=== PATIENT | female | born 1955 | race Caucasian/White ===

== ENCOUNTER → 2019-06-04 11:12 | Outpatient (CLI) | payer MEDICARE, SELFPAY ==
--- NOTE | ~2019-06-04 | MM_ITS ---
EXAMINATION: MM screening [facility] w carol HISTORY: Screening mammogram TECHNIQUE: Craniocaudal and mediolateral oblique 3-D tomosynthesis images were obtained and synthetic 2-D images were generated. CAD analysis was submitted and interpreted. COMPARISON: 05/19/2018, 04/09/2017, 03/28/2016 bilateral digital screening mammogram examinations BREAST PARENCHYMAL COMPOSITION: There are scattered areas of fibroglandular density. FINDINGS: Numerous bilateral benign calcifications, primarily calcified microhematomas. There is no e vidence of suspicious mass, calcification, or architectural distortion to suggest malignancy in eithe r breast. There has been no suspicious interval change. IMPRESSION: 1. No mammographic evidence of malignancy. 2. Recommend routine screening mammography in one year. BI-RADS Category 2: Benign finding(s). Reviewed, dictated and finalized at location A.
== END ==
PROVIDERS: Visit Provider Nurse Practitioner Obstetrics & Gynecology
DX: Z12.31 Encounter for screening mammogram for malignant neoplasm of breast (principal)
CPT/HCPCS: 77063; 77067

== ENCOUNTER → 2020-08-09 11:19 | Outpatient (CLI) | payer MEDICARE, SELFPAY ==
--- NOTE | ~2020-08-09 | MM_ITS ---
EXAMINATION: MM screening [facility] w carol HISTORY: Screening mammogram, family history of breast cancer in her mother. TECHNIQUE: Craniocaudal and mediolateral oblique 3-D tomosynthesis images were obtained and synthetic 2-D images were generated. CAD analysis was submitted and interpreted. COMPARISON: 06/04/2019, 05/19/2018, 04/09/2017, 03/28/2016 BREAST PARENCHYMAL COMPOSITION: There are scattered areas of fibroglandular density. FINDINGS: Scattered benign-appearing calcifications are present. There is no evidence of suspicious m ass, calcification, or architectural distortion to suggest malignancy in either breast. There has bee n no suspicious interval change. IMPRESSION: 1. No mammographic evidence of malignancy. 2. Recommend routine screening mammography in one year. BI-RADS Category 2: Benign finding(s). Reviewed, dictated and finalized at location A.
== END ==
PROVIDERS: Visit Provider Nurse Practitioner Obstetrics & Gynecology
DX: Z12.31 Encounter for screening mammogram for malignant neoplasm of breast (principal)
CPT/HCPCS: 77063; 77067

== ENCOUNTER → 2021-10-18 13:13 | Outpatient (CLI) | payer MEDICARE, SELFPAY ==
--- NOTE | ~2021-10-18 | MM_ITS ---
EXAMINATION: MM screening [facility] BI w carol HISTORY: Screening TECHNIQUE: Craniocaudal and mediolateral oblique 3-D tomosynthesis images were obtained and synthetic 2-D images were generated. CAD analysis was submitted and interpreted. COMPARISON: Comparison to multiple prior studies sequentially, with oldest reviewed study dated 02/2016. BREAST PARENCHYMAL COMPOSITION: There are scattered areas of fibroglandular density. FINDINGS: There is no evidence of suspicious mass, calcification, or architectural distortion to sugg est malignancy in either breast. There has been no suspicious interval change. IMPRESSION: 1. No mammographic evidence of malignancy. 2. Recommend routine screening mammography in one year. BI-RADS Category 1: Negative Reviewed, dictated and finalized at location A.
== END ==
PROVIDERS: PCP Internal Medicine Geriatric Medicine; Visit Provider Nurse Practitioner Obstetrics & Gynecology
DX: Z12.31 Encounter for screening mammogram for malignant neoplasm of breast (principal)
CPT/HCPCS: 77063; 77067

== ENCOUNTER 2022-12-26 13:59 | Outpatient (CLI) | payer MEDICARE, SELFPAY ==
--- NOTE | ~2022-12-26 | MM_ITS ---
EXAMINATION: MM screening [facility] w carol HISTORY: Screening mammogram, family history of breast cancer in her mother. TECHNIQUE: Craniocaudal and mediolateral oblique 3-D tomosynthesis images were obtained and synthetic 2-D images were generated. CAD analysis was submitted and interpreted. COMPARISON: 10/18/2021, 08/09/2020, 06/04/2019 BREAST PARENCHYMAL COMPOSITION: There are scattered areas of fibroglandular density. FINDINGS: Scattered benign-appearing calcifications are present. No suspicious mass, calcification, o r architectural distortion are identified in either breast to suggest malignancy. There has been no s uspicious interval change. IMPRESSION: 1. No mammographic evidence of malignancy. 2. Recommend routine screening mammography in one year. BI-RADS Category 2: Benign finding(s). Reviewed, dictated and finalized at location A.
== END 2022-12-26 14:00 | disposition home or self-care (01) ==
LOC: CHSIMG 14:01
PROVIDERS: PCP Internal Medicine Geriatric Medicine; Visit Provider Nurse Practitioner Obstetrics & Gynecology
DX: Z12.31 Encounter for screening mammogram for malignant neoplasm of breast (principal)
CPT/HCPCS: 77063; 77067

== ENCOUNTER 2023-05-18 11:55 | Inpatient (IN) | payer MEDICARE, SELFPAY ==
[2023-05-18] VITALS (24 sets, daily range): BP systolic 106–132; BP diastolic 58–67; PULSE 73–96; RESP 14–23; TEMP 36.7–36.8; O2SAT 92–100; BMI 25.0
--- NOTE | ~2023-05-18 | XR_ITS ---
MODIFIED ESOPHAGRAM HISTORY: Pneumonia TECHNIQUE: Modified barium esophagram was performed by speech pathologist under radiologist fluorosco pic guidance. This was recorded on tape. The exam was reviewed on 05/19/2023 11:37 CDT. The DAP for this procedure was 0.602 Gycm2. Fluoroscopy time is 0.9 minutes. FINDINGS: Lateral projection of the cervical spine demonstrates normal alignment. There is normal s wallowing function without penetration or aspiration.. IMPRESSION: 1: Normal swallowing function without penetration or aspiration. 2: Please refer to speech pathologist report for additional detail. Reviewed, dictated and finalized at location A.
--- NOTE | ~2023-05-18 | XR_ITS ---
EXAMINATION: [id number] DATE: 05/22/2023 11:16 INDICATION: Status post right thoracentesis TECHNIQUE: frontal and lateral views of the chest were obtained. COMPARISON: Chest radiograph dated 05/18/[address] dated 05/19/2023 FINDINGS: Large retrocardiac hiatal hernia. Airspace opacities in the bilateral mid and lower lung zones. No pn eumothorax or pleural effusion. Arch size is normal. Reverse right total shoulder arthroplasty. Spina l stimulator leads projecting over the posterior central canal. Lower thoracic spine. IMPRESSION: 1. No pneumothorax or residual pleural effusion post right thoracentesis. 2. Persistent opacities in the bilateral mid and lower lung zones which could represent pneumonia, pu lmonary edema, atelectasis or more chronic interstitial lung disease. 3. Large hiatal hernia. Reviewed, dictated and finalized at location A. IMPRESSION: 1. No pneumothorax or residual pleural effusion post right thoracentesis. 2. Persistent opacities in the bilateral mid and lower lung zones which could r epresent pneumonia, pulmonary edema, atelectasis or more chronic interstitial l john disease. 3. Large hiatal hernia.
--- NOTE | ~2023-05-18 | CT_ITS ---
EXAMINATION: CT diagnostic chest wo con DATE: 05/18/2023 16:08 INDICATION: pneumonia, TECHNIQUE: Computed tomography (CT) of the chest was performed without intravenous contrast. Automate d exposure control and iterative reconstruction technique were employed. The dose-length product was 215.98 mGy-cm. COMPARISON: X-ray chest, same date. FINDINGS: CHEST: Thoracic aorta: No significant dilation or calcification. Lung parenchyma and airways: Rounded consolidation in the right lung base. Peripheral patchy groundgl ass opacities, reticulations, and inter and intralobular septal thickening.. Thoracic inlet, axillae and chest wall: No thyroid or soft tissue mass. No axillary lymphadenopathy. Mediastinum: No lymphadenopathy. Large hiatal hernia containing portions of the stomach and large bow el. Patulous esophagus. Heart and pericardium: Normal heart size. No pericardial effusion. Coronary artery calcifications: Moderate. Pleura: Small right pleural effusion. Upper abdomen: No significant finding. Thoracic bones: Old healed left second and third rib fractures. Exaggerated thoracic kyphosis. Superi or endplate deformity at T7 and L1. Inferior endplate deformity at T12. Stimulator leads project over the lower thoracic canal. Partially visualized right shoulder arthroplasty hardware. IMPRESSION: Segmental right basilar opacity most likely represents rounded atelectasis, however focal consolidati on or pulmonary masses are not excluded. Consider short-term follow-up to demonstrate resolution. Diffuse interstitial lung disease may represent NSIP or UIP. Small right pleural effusion. Large hiatal hernia containing uncomplicated appearing stomach and large bowel. Patulous esophagus. Endplate deformities at T7, T12, and L1 represent acute or chronic compression fracture, correlate wi th pain/tenderness. Reviewed, dictated and finalized at location K. IMPRESSION: Segmental right basilar opacity most likely represents rounded atelectasis, how ever focal consolidation or pulmonary masses are not excluded. Consider short-t erm follow-up to demonstrate resolution. Diffuse interstitial lung disease may represent NSIP or UIP. Small right pleural effusion. Large hiatal hernia containing uncomplicated appearing stomach and large bowel. Patulous esophagus. Endplate deformities at T7, T12, and L1 represent acute or chronic compression fracture, correlate with pain/tenderness.
--- NOTE | ~2023-05-18 | CT_ITS ---
EXAMINATION: CTA chest PE protocol DATE: 05/19/2023 11:10 CDT INDICATION: Hypoxia TECHNIQUE: Computed tomographic angiography (CTA) of the chest was performed with 100 mL Omnipaque-35 0 intravenous contrast. The dose-length product was 352.43 mGy-cm. Maximum intensity projection 3D-re constructions of the aorta and other arteries were constructed by the technologist on a separate work station. Automated exposure control and iterative reconstruction technique were employed. COMPARISON: CT dated 05/18/2023. FINDINGS: Heart size normal. There is atherosclerosis of the aorta without aneurysm. Small pleural ef fusions. Patchy bilateral airspace consolidation, consistent with pneumonia. Dependent atelectasis. T here is chronic interstitial fibrosis with bronchiectasis. Study is technically adequate without evidence for pulmonary embolism. Large hiatal hernia containing nonobstructed bowel. Multiple chronic wedge compression deformities of the thoracic spine. Accentuat ed kyphosis. Moderate thoracic spondylosis. IMPRESSION: 1. No evidence for pulmonary embolism. 2: Patchy bilateral airspace consolidation, suspicious for pneumonia. Superimposed pulmonary fibrosis . 3: Small pleural effusions, right greater than left. 4: Large hiatal hernia. Reviewed, dictated and finalized at location A. IMPRESSION: 1. No evidence for pulmonary embolism. 2: Patchy bilateral airspace consolidation, suspicious for pneumonia. Superimpo sed pulmonary fibrosis. 3: Small pleural effusions, right greater than left. 4: Large hiatal hernia.
--- NOTE | ~2023-05-18 | US_ITS ---
EXAMINATION: US thoracentesis DATE: 05/22/2023 11:34 INDICATION: Right pleural effusion TECHNIQUE: The procedure and its risks and benefits were discussed with the patient. Potential risks discussed included bleeding, infection, and pneumothorax. The patient understood the risks and agreed to proceed. The skin was prepped and draped in sterile fashion. 1% lidocaine was used for local anes thesia. Under ultrasound guidance, a 5 Fr catheter with trochar was advanced into the right pleural e ffusion. Fluid was aspirated. The catheter was removed, and a dressing was applied. There were no imm ediate complications. FINDINGS: Ultrasound images demonstrate a small right pleural effusion and the catheter within the fluid. IMPRESSION: 1. Successful ultrasound-guided thoracentesis yielding 100 mL of yellowish fluid. Reviewed, dictated and finalized at location A. IMPRESSION: 1. Successful ultrasound-guided thoracentesis yielding 100 mL of yellowish flu id.
--- NOTE | ~2023-05-18 | XR_ITS ---
XR chest 2V 05/18/2023 12:52 Indication: Shortness of breath and cough Procedure: AP and lateral views of the chest Comparison: No prior studies for comparison. Findings: Extensive bilateral airspace consolidation. Cardiomegaly. There is a hiatal hernia. Possibl e eventration of the diaphragm. Small right pleural effusion. No pneumothorax. There is right shoulde r arthroplasty. Impression: 1: Extensive bilateral airspace disease, consistent with pneumonia. 2: Small right pleural effusion. 3: Hiatal hernia with possible eventration of the diaphragm. Reviewed, dictated and finalized at location A. Impression: 1: Extensive bilateral airspace disease, consistent with pneumonia. 2: Small right pleural effusion. 3: Hiatal hernia with possible eventration of the diaphragm.
--- NOTE | 2023-05-18 12:00 | ECG_ITS ---
Measurements Intervals [place] Rate: 78 P: 25 MN: 156 QRS: -1 QRSD: 130 T: 119 QT: 446 QTc: 509 Interpretive Statements SINUS RHYTHM LEFT BUNDLE BRANCH BLOCK BASELINE ARTIFACT- II, III, AVL, AVF ABNORMAL ECG NO PREVIOUS ECG AVAILABLE FOR COMPARISON Electronically Signed On 05-18-2023 13:37:20 CDT by Andrew Barcenas D.O.
--- NOTE | 2023-05-18 12:03 | ED.GENADULT ---
HPI - General Adult General Chief complaint: Shortness of Breath/Dyspnea Stated complaint: SOB and CP Time Seen by Provider: 05/18/23 11:59 Source: patient History of Present Illness HPI narrative: 68 years old white female came to the emergency room by ambulance from rehab because of dry cough and chest tightness. Patient with rehab because of recent diagnosis of pneumonia 1-2 months ago been coughing since also been having chest tightness with coughing for the last 7 days. Patient believe that her symptoms are getting worse. Had chest x-ray 1 week ago. Had negative cardiac catheterization January 2023. was hospitalist at [facility] for few weeks with bilateral pneumonia, received IV antibiotic at that time then discharged to rehab. Chest x-ray few days ago showed bilateral pneumonia and started on Levaquin p.o. at that time. History of RA, hypertension, hyperlipidemia, not on aspirin, patient started on Levaquin 3 days ago for pneumonia Patient received Levaquin this morning prior to arrival to the emergency room Related Data Allergies Allergy/AdvReac Type Severity Reaction Status Date / Time No Known Drug Allergies Allergy Unknown Verified 11/12/17 14:29 Review of Systems Review of Systems: All systems reviewed & are unremarkable except as noted in HPI and below Exam Narrative: General appearance: Well-developed, well-nourished Skin: Normal color Head: Normocephalic, nontraumatic Eyes: Clear conjunctiva ENT: Oropharynx normal, ears normal, nose normal Neck: Supple, nontender Chest and respiratory: basilar rales and diffuse rhonchi bilaterally Heart: Regular rate/rhythm Abdomen: Soft, nontender, no organomegaly, quiet bowel sounds Vascular: Normal peripheral pulses, normal capillary refill. Musculoskeletal: Normal range of motion, nontender back Neurologic: Alert and oriented ?3, CHILD CARE SPECIALIST is normal as tested, no gross motor deficit Course Vital Signs Vital signs: Vital Signs Temperature 36.7 C 05/18/23 12:01 Pulse Rate 79 05/18/23 12:01 Respiratory Rate 22 H 05/18/23 12:01 Blood Pressure 106/67 05/18/23 12:01 Pulse Oximetry 100 05/18/23 12:01 Oxygen Delivery Nasal Cannula 05/18/23 12:01 Oxygen Flow Rate 4 05/18/23 12:01 Temperature 36.7 C 05/18/23 12:01 Pulse Rate 80 05/18/23 12:10 Respiratory Rate 22 H 05/18/23 12:01 Blood Pressure 106/67 05/18/23 12:01 Pulse Oximetry 100 05/18/23 12:10 Oxygen Delivery Room Air 05/18/23 12:10 Oxygen Flow Rate 4 05/18/23 12:01 Medical Decision Making MDM Narrative Medical decision making narrative: patient presents with chest pain and constant coughing for weeks Differential diagnosis include CHF, pneumonia, coronary artery disease/ less likely, pulmonary embolism -CT a pulmonary showed no PE few weeks ago Chest wall pain, pleurisy, electrolyte imbalance, dehydration Workup today showed hypokalemia 2.6, bilateral pneumonia, oxygenation on room air 92%. Patient to be admitted to the hospitalist for IV antibiotic, oxygen, potassium replacement. Differential Diagnosis Differential Diagnosis: As above Medical Records Medical records reviewed: Yes I reviewed the external patient's medical records. Vital Signs Vital Signs: Vital Signs Temperature 36.7 C 05/18/23 12:01 Pulse Rate 79 05/18/23 12:01 Respiratory Rate 22 H 05/18/23 12:01 Blood Pressure 106/67 05/18/23 12:01 Pulse Oximetry 100 05/18/23 12:01 Oxygen Delivery Nasal Cannula 05/18/23 12:01 Oxygen Flow Rate 4 05/18/23 12:01 Temperature 36.7 C 05/18/23 12:01 Pulse Rate 80 05/18/23 12:10 Respiratory Rate 22 H 05/18/23 12:01 Blood Pres
[2023-05-18] MEDS: ASPIRIN 81 MG CHEWABLE TABLET 324 MG PO (12:25)
[2023-05-18 12:46] LABS: Basophils Percent Auto 0.4 % (0.2-1.2); Eosinophils Absolute Auto 0.2 K/mm3 (0-0.3); Eosinophils Percent Auto 3.2 % (0-4.4); Hematocrit 32.1 % (37.0-47.0); Hemoglobin 9.9 g/dL (12.0-15.0); Immature Granulocyte Absolute 0.02 K/mm3 (0.00-0.031); Immature Granulocyte Percent A 0.4 % (0-0.5); Lymphocytes Absolute Auto 1.94 K/mm3 (0.9-3.2); Lymphocytes Percent Auto 36.3 % (18.3-44.2); Mean Corpuscular HGB Conc 30.8 g/dl (32-36); Mean Corpuscular Hemoglobin 30.5 pg (26-34); Mean Corpuscular Volume 98.8 fl (80-100); Mean Platelet Volume 10.1 fl (7.4-10.4); Monocytes Absolute Auto 0.6 K/mm3 (0.1-0.6); Monocytes Percent Auto 10.7 % (2.6-8.5); Neutrophils Absolute Auto 2.6 K/mm3 (1.3-6.7); Platelet Count Result 161 k/mm3 (150-375); Red Blood Count 3.25 M/mm3 (4.2-5.4); Red Cell Distribution Width 17.2 % (11.5-14.5); White Blood Count 5.3 K/mm3 (4.5-10.0)
[2023-05-18 12:47] LABS: Alveolar/Arterial O2 Gradient 48.8 mmHg; Base Excess ABG 3.4 mEq/l (+/-2.0); Device ROOM AIR; Fractional Inspired Oxygen 21 %; HCO3 ABG 26.8 mEq/l (22.0-26.0); Modified Allen's Test Pass; Oxygen Content ABG 13.2 %vol (16.0-22.0); Oxyhemoglobin 89.9 % THb (90.0-100.0); PCO2 ABG 36.3 mmHg (35.0-45.0); PO2 ABG 57.5 mmHg (80.0-100.0); PO2 FiO2 Ratio Arterial Blood 2.74 %; Site Drawn RIGHT RADIAL; Total Hemoglobin 10.4 g/dL (12.0-18.0); pH ABG 7.486 (7.350-7.450)
[2023-05-18 12:58] LABS: Lipase 64 U/L (23-300)
[2023-05-18 13:01] LABS: Alanine Aminotransferase 14 U/L (6-35); Alkaline Phosphatase 57 U/L (38-126); Anion Gap 4 mmol/L (8-16); Aspartate Amino Transferase 30 U/L (14-36); Bilirubin,Total 0.4 mg/dL (0.2-1.3); Blood Urea Nitrogen 7 mg/dL (7-17); Calcium 8.5 mg/dL (8.4-10.2); Carbon Dioxide 30 mmol/L (22-30); Chloride 103 mmol/L (98-107); Estimated CRCL calculation 53 ml/min; Estimated Glomerular Filt Rate > 60; Glucose 86 mg/dL (65-110); Potassium 2.6 mmol/L (3.4-5.0); Sodium 137 mmol/L (137-145)
[2023-05-18 13:08] LABS: NT Pro B Type Natriuretic Pept 279 pg/mL (19.9-100); Troponin I 0.016 ng/mL (0.000-0.034)
[2023-05-18 13:13] LABS: INR 1.1; Prothrombin Time 14.9 Seconds (11.1-14.7)
[2023-05-18 13:14] LABS: Partial Thromboplastin Time 42.8 Seconds (22.3-36.8)
[2023-05-18] MEDS: POTASSIUM CHLORIDE 20 MEQ ER TABLET 40 MEQ PO ×2 (13:52→23:13)
[2023-05-18] MEDS: POTASSIUM CHLORIDE INJ 40 MEQ in SODIUM CHLORIDE 0.9% IV 500 ML 130 MEQ IVPB (14:12)
--- NOTE | 2023-05-18 14:18 | PM.IMHP ---
H&P: HPI History of Present Illness Date/Time: 05/18/23 15:00 Chief Complaint: Shortness of breath. Narrative: This is a 68-year-old female with rheumatoid arthritis, hypertension, hyperlipidemia, depression, anxiety, and gastroesophageal reflux disease who presented to the emergency department via EMS from [facility] for evaluation of shortness of breath. The patient provides the following history. She was hospitalized earlier this year at [facility] at which time she required mechanical ventilation for a period of time due to severe pneumonia, complicated by pneumothorax. She was in the hospital for nearly a month and she was discharged to [facility] for rehab. Within the last week she has developed a nonproductive cough and she was started on levofloxacin 3 days ago after she was found to have evidence of bilateral pneumonia on an outpatient chest x-ray. She has reportedly been running a fever. She complains of intermittent, diffuse chest pain which she has difficulties describing but she goes on to say that this has been an ongoing problem for several months and in fact she had a cardiac catheterization in January 2023 which was reportedly unremarkable. Her appetite has been okay. She has frequent heartburn symptoms which she attributes to GERD and a known hiatal hernia. She denies headache, sore throat, pleuritic pain, nausea, vomiting, diarrhea, lower extremity edema, and calf pain. She was brought in today as she was reportedly increasingly short of breath and was hypoxic. In the ED: She was afebrile on arrival with stable blood pressures. SpO2 was 100% on 6 L nasal cannula. Labs were significant for WBC count of 5.3, hemoglobin 9.9, sodium 137, potassium 2.6, BUN 7, creatinine 0.60, lactic acid 1.3, CRP 8.5, proBNP 279. Chest x-ray showed extensive bilateral airspace disease consistent with pneumonia and small right pleural effusion. Chest CT showed segmental right basilar opacity (most likely round atelectasis however focal consolidation or pulmonary mass not excluded), diffuse interstitial lung disease which may represent NSIP or UIP (patient denies history of such), small right pleural effusion, large hiatal hernia, and patulous esophagus. She was given a dose of cefepime, levofloxacin, and vancomycin and she is being admitted in this setting for further treatment. Review of Systems Review of Systems: Twelve systems were reviewed and are negative except for as per HPI. [facility] Past Medical History Medical History Depression with anxiety Gastroesophageal reflux disease Hiatal hernia Hyperlipidemia Hypertension Irritable bowel syndrome Mitral valve prolapse Rheumatoid arthritis Urge urinary incontinence Surgical History Surgical History History of arthroplasty of right shoulder History of hammertoe correction History of nasal septoplasty History of turbinectomy Status post insertion of sacral nerve stimulator With subsequent removal. Status post insertion of spinal cord stimulator Social History Social History Social History: Surrogate medical decision maker: Adiel Pineda, spouse. Code status: Full code. Smoking status: Never smoker Alcohol intake: never Substance use: never Do You Feel Safe in your Home?: Yes Lack of Transportation: No Lack of Food: Never True Current Housing: I Have Housing Concerned About Future Housing: No Difficulty Paying Gas/Electric Bills: No Difficulty Paying for Meds: No Currently Unemployed: No Education: High School Diploma/GED Difficulty w/ Childcare or Family Care: No Spiritual care concerns: No Meds Home Medications and Allergies Home Medications Medication Instructions Recorded Confirmed Type alendronate 70 mg tablet mg PO 05/18/23 History kaylee
[2023-05-18] MEDS: CEFEPIME 2 GM/NS 50 ML 2 GM/50 ML BAG IVPB (14:40)
[2023-05-18 14:44] LABS: Lactic Acid Reflex 1.3 mmol/L (0.7-2.0)
[2023-05-18 14:47] LABS: CRP 8.5 mg/dL (<1.0)
[2023-05-18 15:58] LABS: MRSA (PCR) NOT DETECTED (NOT DETECTE)
[2023-05-18 16:14] LABS: Troponin I 0.016 ng/mL (0.000-0.034)
[2023-05-18] MEDS: VANCOMYCIN 1,500 MG/NS 500 ML 1,500 MG/500 ML BAG 250 MG IVPB (16:22)
[2023-05-18 16:40] LABS: Influenza A QL RT-PCR Negative (Negative); Influenza B QL RT-PCR Negative (Negative); RSV RNA, RT-PCR Negative (Negative); SARS-CoV-2 RNA PCR Negative (Negative)
[2023-05-18 17:05] LABS: Iron 32 ug/dL (37-170)
[2023-05-18 17:14] LABS: Folic Acid 18.9 ng/mL (2.76->20); Percent Iron Saturation 14 % (20-50); Vitamin B12 > 1000.0 pg/mL (239-931)
[2023-05-18 17:37] LABS: Thyroid Stimulating Hormone Reflex 0.598 uIU/mL (0.465-4.68)
--- NOTE | 2023-05-18 17:49 | ADMGEN ---
This patient, Prabha Pineda, was admitted to 3 [facility] Surg Room 319-01. Patient/family oriented to hospital policies and general routines including ID bracelet, bed and alarms, visiting hours, pain management, procedures, bathroom and other care routines, personal items, smoking policy, room service/diet, and visiting hours. Information on how to activate the Rapid Response Team has been discussed. Patient/Family are encouraged to report perceived risks to care and to ask questions if they do not understand what they are told or what they should do.
[2023-05-18 18:21] LABS: Troponin I 0.014 ng/mL (0.000-0.034)
[2023-05-18] MEDS: IPRATROPIUM 0.5 MG/ALBUTEROL SULFATE 2.5 MG AMPUL.NEB 3 ML INHALATION (20:22)
[2023-05-18 20:29] LABS: Magnesium 1.9 mg/dL (1.6-2.3); Potassium 3.6 mmol/L (3.4-5.0)
[2023-05-18 22:21] LABS: Procalcitonin 0.1 ng/mL
[2023-05-18] MEDS: ACETAMINOPHEN 325 MG TABLET 650 MG PO (23:20)
[2023-05-19] VITALS (16 sets, daily range): BP systolic 97–137; BP diastolic 51–79; PULSE 82–109; RESP 17–20; TEMP 36.3–36.5; O2SAT 92–100
[2023-05-19] MEDS: IPRATROPIUM 0.5 MG/ALBUTEROL SULFATE 2.5 MG AMPUL.NEB 3 ML INHALATION ×4 (02:40→20:39)
[2023-05-19 07:55] LABS: Basophils Percent Auto 0.4 % (0.2-1.2); Eosinophils Absolute Auto 0.3 K/mm3 (0-0.3); Eosinophils Percent Auto 6.3 % (0-4.4); Hematocrit 29.6 % (37.0-47.0); Hemoglobin 8.9 g/dL (12.0-15.0); Immature Granulocyte Absolute 0.01 K/mm3 (0.00-0.031); Immature Granulocyte Percent A 0.2 % (0-0.5); Lymphocytes Absolute Auto 2.04 K/mm3 (0.9-3.2); Lymphocytes Percent Auto 42.5 % (18.3-44.2); Mean Corpuscular HGB Conc 30.1 g/dl (32-36); Mean Corpuscular Hemoglobin 30.2 pg (26-34); Mean Corpuscular Volume 100.3 fl (80-100); Mean Platelet Volume 10.4 fl (7.4-10.4); Monocytes Absolute Auto 0.5 K/mm3 (0.1-0.6); Monocytes Percent Auto 10.8 % (2.6-8.5); Neutrophils Absolute Auto 1.9 K/mm3 (1.3-6.7); Neutrophils Percent Auto 39.8 % (45.5-73.1); Platelet Count Result 153 k/mm3 (150-375); Red Blood Count 2.95 M/mm3 (4.2-5.4); Red Cell Distribution Width 17.5 % (11.5-14.5); White Blood Count 4.8 K/mm3 (4.5-10.0)
--- NOTE | 2023-05-19 07:55 | PM.IMPN ---
Progress Note: A&P Assessment and Plan (1) Acute hypoxic respiratory failure: Code(s): J96.01 - Acute respiratory failure with hypoxia Status: Acute (2) Hypokalemia: Code(s): E87.6 - Hypokalemia Status: Acute (3) Normocytic anemia: Code(s): D64.9 - Anemia, unspecified Status: Acute Plan Acute Respiratory Failure with hypoxia Pneumonia vs ILD vs PE R/O Recently treated for PNA at outside facility came from rehab PO2 52 ABG Bronchodilators. Chest x-ray PNA CT chest ILD Mucolytic Pulmonary consulted CTA pending incentive spirometry while awake. 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 PT/OT ordered patient to likely return to Rehab once medically stable. Time Spent With Patient Time with patient: 15 - 25 minutes Subjective Date/time seen: 05/19/23 07:55 Interval history: Medical Record: Chief Complaint: Shortness of breath. Narrative: This is a 68-year-old female with rheumatoid arthritis, hypertension, hyperlipidemia, depression, anxiety, and gastroesophageal reflux disease who presented to the emergency department via EMS from [facility] for evaluation of shortness of breath. The patient provides the following history. She was hospitalized earlier this year at [facility] at which time she required mechanical ventilation for a period of time due to severe pneumonia, complicated by pneumothorax. She was in the hospital for nearly a month and she was discharged to [facility] for rehab. Within the last week she has developed a nonproductive cough and she was started on levofloxacin 3 days ago after she was found to have evidence of bilateral pneumonia on an outpatient chest x-ray. She has reportedly been running a fever. She complains of intermittent, diffuse chest pain which she has difficulties describing but she goes on to say that this has been an ongoing problem for several months and in fact she had a cardiac catheterization in January 2023 which was reportedly unremarkable. Her appetite has been okay. She has frequent heartburn symptoms which she attributes to GERD and a known hiatal hernia. She denies headache, sore throat, pleuritic pain, nausea, vomiting, diarrhea, lower extremity edema, and calf pain. She was brought in today as she was reportedly increasingly short of breath and was hypoxic. In the ED: She was afebrile on arrival with stable blood pressures. SpO2 was 100% on 6 L nasal cannula. Labs were significant for WBC count of 5.3, hemoglobin 9.9, sodium 137, potassium 2.6, BUN 7, creatinine 0.60, lactic acid 1.3, CRP 8.5, proBNP 279. Chest x-ray showed extensive bilateral airspace disease consistent with pneumonia and small right pleural effusion. Chest CT showed segmental right basilar opacity (most likely round atelectasis however focal consolidation or pulmonary mass not excluded), diffuse interstitial lung disease which may represent NSIP or UIP (patient denies history of such), small right pleural effusion, large hiatal hernia, and patulous esophagus. She was given a dose of cefepime, levofloxacin, and vancomycin and s
[2023-05-19 08:06] LABS: Anion Gap 0 mmol/L (8-16); Blood Urea Nitrogen 8 mg/dL (7-17); Calcium 8.2 mg/dL (8.4-10.2); Carbon Dioxide 27 mmol/L (22-30); Chloride 111 mmol/L (98-107); Estimated CRCL calculation 63 ml/min; Estimated Glomerular Filt Rate > 60; Glucose 76 mg/dL (65-110); Potassium 3.8 mmol/L (3.4-5.0); Sodium 138 mmol/L (137-145)
[2023-05-19] MEDS: POTASSIUM CHLORIDE 20 MEQ ER TABLET 40 MEQ PO ×2 (08:39→20:16)
[2023-05-19] MEDS: ENOXAPARIN 40 MG/0.4 ML SYRINGE SUB-Q (08:40)
[2023-05-19] MEDS: guaiFENesin 12 HR 600 MG TABCR PO ×2 (08:46→20:16)
[2023-05-19] MEDS: PANTOPRAZOLE 40 MG TABLET PO (08:46)
[2023-05-19] MEDS: FERROUS SULFATE 325 MG TABLET DR PO (08:46)
[2023-05-19] MEDS: LOSARTAN POTASSIUM 25 MG TABLET PO (08:46)
[2023-05-19] MEDS: busPIRone HCL 5 MG TABLET 15 MG PO ×2 (08:46→16:47)
[2023-05-19] MEDS: ACETAMINOPHEN 325 MG TABLET 650 MG PO ×3 (09:39→22:58)
[2023-05-19] MEDS: levoFLOXacin 750 MG/D5W 150 ML 750 MG/150 ML BAG 100 MG IVPB (16:00)
[2023-05-19] MEDS: SERTRALINE HCL 50 MG TABLET 200 MG PO (16:46)
[2023-05-19] MEDS: DICYCLOMINE HCL 10 MG CAPSULE 20 MG PO ×2 (17:49→20:16)
[2023-05-19] MEDS: ROSUVASTATIN 10 MG TABLET PO (20:16)
[2023-05-19] MEDS: ZOLPIDEM TARTRATE (*CRX) 5 MG TABLET 10 MG PO (20:16)
[2023-05-20] VITALS (16 sets, daily range): BP systolic 123–142; BP diastolic 52–78; PULSE 81–127; RESP 17–20; TEMP 36.3–36.6; O2SAT 93–96; BMI 25.0
[2023-05-20] MEDS: IPRATROPIUM 0.5 MG/ALBUTEROL SULFATE 2.5 MG AMPUL.NEB 3 ML INHALATION ×4 (01:15→19:45)
[2023-05-20 06:54] LABS: Hemoglobin 8.6 g/dL (12.0-15.0); Mean Corpuscular HGB Conc 29.7 g/dl (32-36); Mean Corpuscular Hemoglobin 29.9 pg (26-34); Mean Corpuscular Volume 100.7 fl (80-100); Mean Platelet Volume 10.5 fl (7.4-10.4); Platelet Count Result 152 k/mm3 (150-375); Red Blood Count 2.88 M/mm3 (4.2-5.4); White Blood Count 4.7 K/mm3 (4.5-10.0)
[2023-05-20 07:05] LABS: Alanine Aminotransferase 11 U/L (6-35); Albumin Level 2.6 g/dL (3.5-5.1); Alkaline Phosphatase 55 U/L (38-126); Anion Gap 0 mmol/L (8-16); Aspartate Amino Transferase 21 U/L (14-36); Bilirubin,Total 0.3 mg/dL (0.2-1.3); Blood Urea Nitrogen 7 mg/dL (7-17); Calcium 8.3 mg/dL (8.4-10.2); Carbon Dioxide 25 mmol/L (22-30); Chloride 109 mmol/L (98-107); Estimated CRCL calculation 63 ml/min; Estimated Glomerular Filt Rate > 60; Glucose 77 mg/dL (65-110); Potassium 4.4 mmol/L (3.4-5.0); Sodium 134 mmol/L (137-145)
[2023-05-20] MEDS: DICYCLOMINE HCL 10 MG CAPSULE 20 MG PO ×4 (08:31→20:39)
[2023-05-20] MEDS: ACETAMINOPHEN 325 MG TABLET 650 MG PO ×3 (08:31→18:47)
[2023-05-20] MEDS: POTASSIUM CHLORIDE 20 MEQ ER TABLET 40 MEQ PO ×2 (08:32→20:39)
[2023-05-20] MEDS: ENOXAPARIN 40 MG/0.4 ML SYRINGE SUB-Q (08:32)
[2023-05-20] MEDS: busPIRone HCL 5 MG TABLET 15 MG PO ×2 (08:32→17:06)
[2023-05-20] MEDS: PANTOPRAZOLE 40 MG TABLET PO (08:32)
[2023-05-20] MEDS: FERROUS SULFATE 325 MG TABLET DR PO (08:32)
[2023-05-20] MEDS: LOSARTAN POTASSIUM 25 MG TABLET PO (08:32)
[2023-05-20] MEDS: guaiFENesin 12 HR 600 MG TABCR PO ×2 (08:32→20:39)
--- NOTE | 2023-05-20 11:16 | PM.IMPN ---
Progress Note: A&P Assessment and Plan (1) Acute hypoxic respiratory failure: Code(s): J96.01 - Acute respiratory failure with hypoxia Status: Acute (2) Hypokalemia: Code(s): E87.6 - Hypokalemia Status: Acute (3) Normocytic anemia: Code(s): D64.9 - Anemia, unspecified Status: Acute (4) Pulmonary fibrosis determined by high resolution computed tomography: Code(s): J84.10 - Pulmonary fibrosis, unspecified Status: Acute Plan Acute Respiratory Failure with hypoxia Pneumonia vs ILD vs PE R/O Recently treated for PNA at outside facility came from rehab PO2 52 ABG Bronchodilators. Chest x-ray PNA CT chest ILD Mucolytic Pulmonary consulted CTA showing superimposed pulmonary fibrosis incentive spirometry while awake. sputum culture ordered influenza/COVID/RSV negative respiratory panel pending antibiotic therapy: Received cefepime/vanc/levofloxacin in ED now just on Levofloxacin Normal WBC Patient reported mild fevers CTA PE negative showing pulmonary fibrosis supplemental oxygen therapy to maintain oxygen 92%: will need home 02 evaluation prior to discharge Hypokalemia 2.6 POA Replenished monitor and replenish daily athletic monitor Anemia Iron panel with iron deficiency Ferrous sulfate daily Hgb 8.9 stable daily labs Transfuse hgb <7.0 Code status: Full code per patient DVT prophylaxis: Lovenox Stress ulcer prophylaxis: Protonix 40 daily PT/OT notes: PT/OT pending Disposition: Patient admitted for acute respiratory failure with hypoxia pulmonary has been consulted for further recommendations regarding CT findings, . PT/OT ordered patient to likely return to Rehab once medically stable. Time Spent With Patient Time with patient: 15 - 25 minutes Subjective Date/time seen: 05/20/23 11:16 Interval history: Medical Record: Chief Complaint: Shortness of breath. Narrative: This is a 68-year-old female with rheumatoid arthritis, hypertension, hyperlipidemia, depression, anxiety, and gastroesophageal reflux disease who presented to the emergency department via EMS from [facility] for evaluation of shortness of breath. The patient provides the following history. She was hospitalized earlier this year at [facility] at which time she required mechanical ventilation for a period of time due to severe pneumonia, complicated by pneumothorax. She was in the hospital for nearly a month and she was discharged to [facility] for rehab. Within the last week she has developed a nonproductive cough and she was started on levofloxacin 3 days ago after she was found to have evidence of bilateral pneumonia on an outpatient chest x-ray. She has reportedly been running a fever. She complains of intermittent, diffuse chest pain which she has difficulties describing but she goes on to say that this has been an ongoing problem for several months and in fact she had a cardiac catheterization in January 2023 which was reportedly unremarkable. Her appetite has been okay. She has frequent heartburn symptoms which she attributes to GERD and a known hiatal hernia. She denies headache, sore throat, pleuritic pain, nausea, vomiting, diarrhea, lower extremity edema, and calf pain. She was brought in today as she was reportedly increasingly short of breath and was hypoxic. In the ED: She was afebrile on arrival with stable blood pressures. SpO2 was 100% on 6 L nasal cannula. Labs were significant for WBC count of 5.3, hemoglobin 9.9, sodium 137, potassium 2.6, BUN 7, creatinine 0.60, lactic acid 1.3, CRP 8.5, proBNP 279. Chest x-ray showed extensive bilateral airspace disease consistent with pneumonia and small right pleural effusion. Chest CT showed segmental right basilar opacity (most likely round atelectasis however focal consolidation or pulmonary mass not excluded), diffuse interstitial lung disease which may represent NSIP
[2023-05-20] MEDS: levoFLOXacin 750 MG/D5W 150 ML 750 MG/150 ML BAG 100 MG IVPB (14:48)
[2023-05-20] MEDS: SERTRALINE HCL 50 MG TABLET 200 MG PO (17:06)
[2023-05-20] MEDS: BENZONATATE 100 MG CAPSULE PO (17:06)
[2023-05-20] MEDS: ROSUVASTATIN 10 MG TABLET PO (20:39)
[2023-05-20] MEDS: ZOLPIDEM TARTRATE (*CRX) 5 MG TABLET 10 MG PO (20:39)
[2023-05-21] VITALS (17 sets, daily range): BP systolic 93–155; BP diastolic 55–88; PULSE 92–146; RESP 16–24; TEMP 35.6–36.6; O2SAT 91–98
--- NOTE | 2023-05-21 | ECHO_ITS ---
Patient Info Name: Prabha Pineda Age: 68 years : 1955 Gender: Female Ht: 60 in Wt: 126 lbs BSA: 1.57 m2 HR: 99 bpm BP: 155 / 83 mmHg Heart Rhythm: Sinus Rhythm Technical Quality: Fair Exam Date: 05/21/2023 10:18 AM Exam Location: Echo Lab Patient Status: Inpatient Admit Date: 05/20/2023 Staff Ordering Physician: Lola Fong APRN [employer] Production: Natali Alba RDCS Attending Provider: Ricardo Costa MD Referring Physician: Ajit KIRKLAND; Exam Type: CA echo doppler color flow Study Info Indications - STACH/HTN/pulmonary fibrosis Complete two-dimensional, color flow and Doppler transthoracic echocardiogram is performed. Summary 1. Complete two-dimensional, color flow and Doppler transthoracic echocardiogram is performed. 2. Left ventricular chamber dimension is normal. 3. Left ventricular systolic function is normal, estimated at 50-55%. 4. Right ventricular systolic function is normal. 5. Left atrial chamber dimension is mildly enlarged. 6. There is mild tricuspid valve regurgitation. 7. Estimated pulmonary arterial systolic pressure is 37 mmHg. 8. Normal inferior vena cava with >50% collapse upon inspiration consistent with normal right atrial pressure, 3 mmHg. Left Ventricle Left ventricular chamber dimension is normal. Left ventricular systolic function is normal, estimated at 50-55%. There is no increased left ventricular wall thickness. Left ventricular septal wall motion is abnormal with septal motion related to bundle branch block. Right Ventricle Right ventricular chamber dimension is normal. Right ventricular systolic function is normal. Left Atria Left atrial chamber dimension is mildly enlarged. Right Atria Right atrial chamber dimension is normal. Atrial Septum Intact interatrial septum visualized by color flow imaging. Aortic Valve The aortic valve is trileaflet. There is no aortic valve stenosis. There is no aortic valve regurgitation. Pulmonic Valve The pulmonic valve is not well visualized. Mitral Valve There is trace mitral valve regurgitation. Tricuspid Valve There is mild tricuspid valve regurgitation. Estimated pulmonary arterial systolic pressure is 37 mmHg. Pericardium/Pleural There is no pericardial effusion. Inferior Vena Cava Normal inferior vena cava with >50% collapse upon inspiration consistent with normal right atrial pressure, 3 mmHg. Aorta The aortic root size at the sinus of Valsalva is normal. Left Ventricular Outflow Tract Name Value Normal LVOT 2D LVOT Diameter 1.9 cm LVOT Doppler LVOT Peak Gradient 6 mmHg LVOT Mean Gradient 3 mmHg LVOT VTI 18 cm LVOT VTI/AV VTI Ratio 0.7 LVOT Stroke Volume 51 ml LVOT CO 5.0 l/min LVOT CI 3.2 l/min/m2 Pulmonic Valve Name Value Normal RVOT Doppler
[2023-05-21 07:07] LABS: Hematocrit 30.6 % (37.0-47.0); Hemoglobin 9.2 g/dL (12.0-15.0); Mean Corpuscular HGB Conc 30.1 g/dl (32-36); Mean Corpuscular Hemoglobin 30.2 pg (26-34); Mean Corpuscular Volume 100.3 fl (80-100); Mean Platelet Volume 10.4 fl (7.4-10.4); Platelet Count Result 166 k/mm3 (150-375); Red Blood Count 3.05 M/mm3 (4.2-5.4); Red Cell Distribution Width 18.1 % (11.5-14.5); White Blood Count 6.5 K/mm3 (4.5-10.0)
[2023-05-21 07:27] LABS: Alanine Aminotransferase 12 U/L (6-35); Albumin Level 3.1 g/dL (3.5-5.1); Alkaline Phosphatase 65 U/L (38-126); Anion Gap 5 mmol/L (8-16); Aspartate Amino Transferase 24 U/L (14-36); Bilirubin,Total 0.5 mg/dL (0.2-1.3); Blood Urea Nitrogen 6 mg/dL (7-17); Calcium 8.9 mg/dL (8.4-10.2); Carbon Dioxide 22 mmol/L (22-30); Chloride 108 mmol/L (98-107); Estimated CRCL calculation 46 ml/min; Estimated Glomerular Filt Rate > 60; Glucose 74 mg/dL (65-110); Potassium 5.2 mmol/L (3.4-5.0); Sodium 135 mmol/L (137-145)
--- NOTE | 2023-05-21 07:44 | P.PNIM_ITS ---
Progress Note: A&P Assessment and Plan (1) Acute hypoxic respiratory failure: Code(s): J96.01 - Acute respiratory failure with hypoxia Status: Acute (2) Hypokalemia: Code(s): E87.6 - Hypokalemia Status: Acute (3) Normocytic anemia: Code(s): D64.9 - Anemia, unspecified Status: Acute (4) Pulmonary fibrosis determined by high resolution computed tomography: Code(s): J84.10 - Pulmonary fibrosis, unspecified Status: Acute (5) Pleural effusion associated with pulmonary infection: Code(s): J18.9 - Pneumonia, unspecified organism; J91.8 - Pleural effusion in other cond itions classified elsewhere Status: Acute Plan Acute Respiratory Failure with hypoxia Pneumonia vs ILD vs PE R/O * Recently treated for PNA at outside facility came from rehab * PO2 52 ABG * Bronchodilators. * Chest x-ray PNA * CT chest ILD * Mucolytic * Pulmonary consulted * CTA showing superimposed pulmonary fibrosis * incentive spirometry while awake. * sputum culture ordered * influenza/COVID/RSV negative * respiratory panel pending * antibiotic therapy: Received cefepime/vanc/levofloxacin in ED now just on Levofloxacin * Normal WBC * Patient reported mild fevers * CTA PE negative showing pulmonary fibrosis * supplemental oxygen therapy to maintain oxygen 92%: * will need home 02 evaluation prior to discharge Bilateral pleural effusions * Pulmonology consulted and following * Current CT scan appears to have loculated pleural effusion * Spoke with patient's primary care physician Dr. Yogi Gandhi previous records showed diffuse pneumonia with a spontaneous pneumothorax with thoracostomy placed no previous loculated Rt pleural effusion Hypokalemia * 2.6 POA * Replenished * monitor and replenish daily * lunchroom monitor Anemia * Iron panel with iron deficiency * Ferrous sulfate daily * Hgb 8.9 stable * daily labs * Transfuse hgb <7.0 Code status: Full code per patient DVT prophylaxis: Lovenox Stress ulcer prophylaxis: Protonix 40 daily PT/OT notes: PT/OT pending Disposition: Patient admitted for acute respiratory failure with hypoxia pulmonary has been consulted for further recommendations regarding CT findings, . PT/OT ordered patient to likely return to Rehab once medically stable. Time Spent With Patient Time with patient: 15 - 25 minutes Subjective Date/time seen: 05/21/23 07:44 Interval history: Medical Record: Chief Complaint: Shortness of breath. Narrative: This is a 68-year-old female with rheumatoid arthritis, hypertension, hyperlipidemia, depression, anxiety, and gastroesophageal reflux disease who presented to the emergency department via EMS from [facility] for evaluation of shortness of breath. The patient provides the following history. She was hospitalized earlier this year at [facility] at which time she required mechanical ventilation for a period of time due to severe pneumonia, complicated by pneumothorax. She was in the hospital for nearly a month and she was discharged to [facility] for rehab. Within the last week she has developed a nonproductive cough and she was started on levofloxacin 3 days ago after she was found to have evidence of bilateral pneumonia on an outpatient chest x-ray. She has reportedly been running a fever. She complains of intermittent, diffuse chest pain which she has difficulties describing but she goes on to say that this has been an ongoing probl
--- NOTE | 2023-05-21 07:44 | PM.IMPN ---
Progress Note: A&P Assessment and Plan (1) Acute hypoxic respiratory failure: Code(s): J96.01 - Acute respiratory failure with hypoxia Status: Acute (2) Hypokalemia: Code(s): E87.6 - Hypokalemia Status: Acute (3) Normocytic anemia: Code(s): D64.9 - Anemia, unspecified Status: Acute (4) Pulmonary fibrosis determined by high resolution computed tomography: Code(s): J84.10 - Pulmonary fibrosis, unspecified Status: Acute (5) Pleural effusion associated with pulmonary infection: Code(s): J18.9 - Pneumonia, unspecified organism; J91.8 - Pleural effusion in other conditions classified elsewhere Status: Acute Plan Acute Respiratory Failure with hypoxia Pneumonia vs ILD vs PE R/O Recently treated for PNA at outside facility came from rehab PO2 52 ABG Bronchodilators. Chest x-ray PNA CT chest ILD Mucolytic Pulmonary consulted CTA showing superimposed pulmonary fibrosis incentive spirometry while awake. sputum culture ordered influenza/COVID/RSV negative respiratory panel pending antibiotic therapy: Received cefepime/vanc/levofloxacin in ED now just on Levofloxacin Normal WBC Patient reported mild fevers CTA PE negative showing pulmonary fibrosis supplemental oxygen therapy to maintain oxygen 92%: will need home 02 evaluation prior to discharge Bilateral pleural effusions Pulmonology consulted and following Current CT scan appears to have loculated pleural effusion Spoke with patient's primary care physician Dr. Yogi Gandhi previous records showed diffuse pneumonia with a spontaneous pneumothorax with thoracostomy placed no previous loculated Rt pleural effusion Hypokalemia 2.6 POA Replenished monitor and replenish daily air sampling and monitoring Anemia Iron panel with iron deficiency Ferrous sulfate daily Hgb 8.9 stable daily labs Transfuse hgb <7.0 Code status: Full code per patient DVT prophylaxis: Lovenox Stress ulcer prophylaxis: Protonix 40 daily PT/OT notes: PT/OT pending Disposition: Patient admitted for acute respiratory failure with hypoxia pulmonary has been consulted for further recommendations regarding CT findings, . PT/OT ordered patient to likely return to Rehab once medically stable. Time Spent With Patient Time with patient: 15 - 25 minutes Subjective Date/time seen: 05/21/23 07:44 Interval history: Medical Record: Chief Complaint: Shortness of breath. Narrative: This is a 68-year-old female with rheumatoid arthritis, hypertension, hyperlipidemia, depression, anxiety, and gastroesophageal reflux disease who presented to the emergency department via EMS from [facility] for evaluation of shortness of breath. The patient provides the following history. She was hospitalized earlier this year at [facility] at which time she required mechanical ventilation for a period of time due to severe pneumonia, complicated by pneumothorax. She was in the hospital for nearly a month and she was discharged to [facility] for rehab. Within the last week she has developed a nonproductive cough and she was started on levofloxacin 3 days ago after she was found to have evidence of bilateral pneumonia on an outpatient chest x-ray. She has reportedly been running a fever. She complains of intermittent, diffuse chest pain which she has difficulties describing but she goes on to say that this has been an ongoing problem for several months and in fact she had a cardiac catheterization in January 2023 which was reportedly unremarkable. Her appetite has been okay. She has frequent heartburn symptoms which she attributes to GERD and a known hiatal hernia. She denies headache, sore throat, pleuritic pain, nausea, vomiting, diarrhea, lower extremity edema, and calf pain. She was brought in today as she was reportedly increasingly short of breath and was hypoxic. In the ED: She was afebrile on
--- NOTE | 2023-05-21 07:48 | ECG_ITS ---
Measurements Intervals [place] Rate: 89 P: 48 ND: 162 QRS: 0 QRSD: 115 T: 55 QT: 386 QTc: 471 Interpretive Statements SINUS RHYTHM LEFT BUNDLE BRANCH BLOCK ABNORMAL ECG COMPARED TO ECG 05/18/2023 12:05:43 NO SIGNIFICANT CHANGES Electronically Signed On 05-21-2023 12:56:08 CDT by Andrew Barcenas D.O.
[2023-05-21] MEDS: IPRATROPIUM 0.5 MG/ALBUTEROL SULFATE 2.5 MG AMPUL.NEB 3 ML INHALATION ×3 (08:16→21:00)
[2023-05-21] MEDS: DICYCLOMINE HCL 10 MG CAPSULE 20 MG PO ×4 (08:21→20:47)
[2023-05-21] MEDS: PANTOPRAZOLE 40 MG TABLET PO (08:21)
[2023-05-21] MEDS: busPIRone HCL 5 MG TABLET 15 MG PO ×2 (08:21→17:24)
[2023-05-21] MEDS: FERROUS SULFATE 325 MG TABLET DR PO (08:21)
[2023-05-21] MEDS: guaiFENesin 12 HR 600 MG TABCR PO ×2 (08:21→20:47)
[2023-05-21] MEDS: carvediloL 12.5 MG TABLET PO ×2 (08:21→20:47)
[2023-05-21] MEDS: LOSARTAN POTASSIUM 25 MG TABLET PO (08:21)
[2023-05-21] MEDS: ENOXAPARIN 40 MG/0.4 ML SYRINGE SUB-Q (08:22)
[2023-05-21] MEDS: ACETAMINOPHEN 325 MG TABLET 650 MG PO ×2 (08:30→15:37)
[2023-05-21 08:52] LABS: Magnesium 1.8 mg/dL (1.6-2.3)
[2023-05-21] MEDS: MORPHINE SULFATE (*CRX) 2 MG/ML INJ 1 MG IV PUSH (10:16)
--- NOTE | 2023-05-21 10:35 | PM.CNPUL ---
Assessment and Plan Assessment and plan (1) Acute hypoxic respiratory failure: Code(s): J96.01 - Acute respiratory failure with hypoxia Status: Acute Assessment and Plan: Does not require O2 at home; was admitted with acute hypoxemic respiratory failure at [facility] 03/31/2023; had a rough course, intubated for a week, (R) ptx with pigtail catheter, weaned off O2 before going to rehab. She worsened at rehab, dropped saturation, came to [facility] 05/18/23 with bilateral infiltrates which did not appear as diffuse as the image from records at [facility]. Now, has a small right pleural effusion and infiltrates; this is consistent with non-resolving pneumonia; she had extensive testing in last month. Today, this evening, she is now on room air. Saturation is 91%, borderline drifting down, however in general, better compared to admission 3 days ago with saturation in the mid 80% range with exertion. continue to monitor saturation, O2 as needed to maintain O2 saturation 90% an above, use O2 during sleep with expected drop in saturation with normal hypoventilation in sleep. walk study before discharge she needs PFTs after discharge and when closer to her baseline; she may have RA-associated lung disease which may include ILD, rheumatoid effusion; no nodules are visible. may have aspiration of gastric acid with large hiatal hernia; continue PPI - pantoprazole (2) Rheumatoid arthritis: Qualifiers: Laterality: bilateral Rheumatoid arthritis location: foot Rheumatoid factor presence: unspecified presence Qualified Code(s): M06.9 - Rheumatoid arthritis, unspecified Code(s): M06.9 - Rheumatoid arthritis, unspecified Status: Acute Assessment and Plan: Longer than 20 years; has failed Humira, Enbrel, Orencia and Xeljanz. Her last abatacept infusion was March 18, 2023. She had golimumab ( Simponi )in December 2022 RA is associated with lung disease; most common finding is ILD, and she appears to have ILD on chest CT. When RA and ILD co-exist, the treatment for the interstitial lung disease is to manage the underlying rheumatoid arthritis. Whatever treatment helps the joints should also help the lungs. S She has been on many medications, was on Xeljanz for a long time but most of the others she has been on for shorter periods of time. (3) Recurrent pneumonia: Code(s): J18.9 - Pneumonia, unspecified organism Status: Acute Assessment and Plan: Pneumonia Mar 31, 2023 admitted at [facility], work up was negative for the usual community acquired pathogens, swabs negative for SARS-CoV-2, influenza, RSV, Urine antigens negative for Legionella and pneumococcal disease; blood cultures (+) for CMV treated with ganciclovir in addition to ceftriaxone, azithromycin and Bactrim for empiric treatment of PJP- Pneumocystis jiroveci. On 05/17, procalcitonin was 0.1, negative, indicating unlikely that she has a bacterial infection. These recurrent infiltrates on chest CT may not be infectious, they may be inflammatory, they may represent inflammation /fibrosis/ drug reactions. (4) Immunosuppression: Code(s): D84.9 - Immunodeficiency, unspecified Status: Acute Assessment and Plan: She is immunosuppressed due to having rheumatoid arthritis which is in autoimmune disease as well as treatment for RA with very as biologic, most recent treatment was February with abatacept (5) Pulmonary fibrosis determined by high resolution computed tomography: Code(s): J84.10 - Pulmonary fibrosis, unspecified Status: Acute Assessment and Plan: She has RA-ILD; she does not have severe ILD radiographically, no clear UIP pattern. She does not appear
[2023-05-21 13:30] LABS: Mycoplasma IgM Antibody Titer 79 U/mL (<770)
[2023-05-21] MEDS: levoFLOXacin 750 MG/D5W 150 ML 750 MG/150 ML BAG 100 MG IVPB (15:22)
[2023-05-21] MEDS: SERTRALINE HCL 50 MG TABLET 200 MG PO (17:25)
[2023-05-21] MEDS: ZOLPIDEM TARTRATE (*CRX) 5 MG TABLET 10 MG PO (20:47)
[2023-05-21] MEDS: ROSUVASTATIN 10 MG TABLET PO (20:47)
[2023-05-21 21:54] LABS: Glucose 81 mg/dL (65-110); Lactate Dehydrogenase 269 U/L (120-246)
[2023-05-22] VITALS (21 sets, daily range): BP systolic 118–121; BP diastolic 62–85; PULSE 94–119; RESP 18–22; TEMP 36.7–37; O2SAT 79–98
[2023-05-22] MEDS: IPRATROPIUM 0.5 MG/ALBUTEROL SULFATE 2.5 MG AMPUL.NEB 3 ML INHALATION ×4 (01:15→21:21)
[2023-05-22 07:30] LABS: Hematocrit 31.6 % (37.0-47.0); Hemoglobin 9.7 g/dL (12.0-15.0); Mean Corpuscular HGB Conc 30.7 g/dl (32-36); Mean Corpuscular Hemoglobin 30.4 pg (26-34); Mean Corpuscular Volume 99.1 fl (80-100); Mean Platelet Volume 10.6 fl (7.4-10.4); Platelet Count Result 185 k/mm3 (150-375); Red Blood Count 3.19 M/mm3 (4.2-5.4); Red Cell Distribution Width 17.6 % (11.5-14.5)
[2023-05-22 07:42] LABS: Alanine Aminotransferase 11 U/L (6-35); Albumin Level 2.9 g/dL (3.5-5.1); Alkaline Phosphatase 65 U/L (38-126); Anion Gap 3 mmol/L (4-12); Aspartate Amino Transferase 24 U/L (14-36); Bilirubin,Total 0.4 mg/dL (0.2-1.3); Blood Urea Nitrogen 6 mg/dL (7-17); Calcium 8.8 mg/dL (8.4-10.2); Carbon Dioxide 23 mmol/L (22-30); Chloride 107 mmol/L (98-107); Cholesterol 86 mg/dL (0-200); Estimated CRCL calculation 46 ml/min; Estimated Glomerular Filt Rate > 60; Glucose 82 mg/dL (65-110); Potassium 4.2 mmol/L (3.4-5.0); Sodium 133 mmol/L (137-145)
[2023-05-22 08:47] LABS: INR 1.1; Prothrombin Time 14.3 Seconds (11.1-14.7)
[2023-05-22 08:48] LABS: Partial Thromboplastin Time 35.8 Seconds (22.3-36.8)
[2023-05-22 11:48] LABS: pH Pleural Fluid 7.476 (7.210-7.500)
[2023-05-22] MEDS: LOSARTAN POTASSIUM 25 MG TABLET PO (13:49)
[2023-05-22] MEDS: ACETAMINOPHEN 325 MG TABLET 650 MG PO (13:49)
[2023-05-22] MEDS: DICYCLOMINE HCL 10 MG CAPSULE 20 MG PO ×3 (13:49→21:01)
[2023-05-22] MEDS: FERROUS SULFATE 325 MG TABLET DR PO (13:49)
[2023-05-22] MEDS: PANTOPRAZOLE 40 MG TABLET PO (13:49)
[2023-05-22 13:53] LABS: Appearance Pleural Fluid Clear (Clear); Color Pleural Fluid Yellow (Colorless); Lymphocytes Pleural Fluid 71 %; Monocytes Pleural Fluid 3 %; Neutrophils Pleural Fluid 15 % (0-25); Pleural fluid source Pleural fluid
[2023-05-22 13:54] LABS: Mesothelial Cells Pleural Flui 11 %
--- NOTE | 2023-05-22 15:35 | P.PNIM_ITS ---
Progress Note: A&P Assessment and Plan (1) Acute hypoxic respiratory failure: Code(s): J96.01 - Acute respiratory failure with hypoxia Status: Acute Assessment and Plan: Recently treated for PNA at outside facility came from rehab. * CTA showing superimposed pulmonary fibrosis, patchy bilateral airspace suspicious for pneumonia. * antibiotic therapy: Received cefepime/vanc/levofloxacin in ED now just on Levofloxacin * sputum culture ordered * influenza/COVID/RSV negative * respiratory panel pending * supplemental oxygen therapy to maintain oxygen 92%: She is currently on 2 L * Bronchodilators q.6 hours as needed * Pulmonology consulted and appreciate their recommendations. * Home O2 eval prior to discharge. * PFTs after discharge when closer to baseline. (2) Pulmonary fibrosis determined by high resolution computed tomography: Code(s): J84.10 - Pulmonary fibrosis, unspecified Status: Acute Assessment and Plan: * pulmonology consulted on the patient. * Continue bronchodilators. (3) Pleural effusion associated with pulmonary infection: Code(s): J18.9 - Pneumonia, unspecified organism; J91.8 - Pleural effusion in other conditions classified elsewhere Status: Acute Assessment and Plan: * Pulmonology consulted and following * COVID, flu and RSV negative * Current CT scan appears to have loculated pleural effusion * Spoke with patient's primary care physician Dr. Yogi Gandhi previous records showed diffuse pneumonia with a spontaneous pneumothorax with thoracostomy placed no previous loculated Rt pleural effusion * Patient underwent thoracentesis yielding 100 mL of fluid. 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 (5) Normocytic anemia: Code(s): D64.9 - Anemia, unspecified Status: Acute Assessment and Plan: * Iron panel with iron deficiency * Ferrous sulfate daily * Hgb 8.9 stable * daily labs * Transfuse hgb <7.0 (6) Rheumatoid arthritis: Qualifiers: Rheumatoid arthritis location: foot Rheumatoid factor presence: unspecified presence Laterality: bilateral Qualified Code(s): M06.9 - Rheumatoid arthritis, unspecified Code(s): M06.9 - Rheumatoid arthritis, unspecified Status: Acute Assessment and Plan: Due to history of RA patient is being evaluated lung related rheumatic diseases that could explain her pulmonary fibrosis. * Pleural fluid analysis ordered and pending. * Pulmonology on board. Subjective Date/time seen: 05/22/23 15:35 Interval history: Patient feeling well today. She denies shortness of breath, chest pain, nausea, vomiting or dysuria. She is having some abdominal muscle soreness from coughing. She denies a productive cough. She is still requiring oxygen but is currently being weaned down. She is now on 2 L. Patient underwent thoracentesis today. PT O2 evaluation for patient to return to [facility]. Exam Narrative: GENERAL: Comfortable, no acute distress HENMT: moist mucous membranes EYES: EOM intact b/l NECK: no lymphadenopathy RESPIRATORY: no increased respiratory effort, right lower lung base crackles, left lower lung base distant to auscultation CARDIO: Regular rate and rhythm
--- NOTE | 2023-05-22 15:35 | PM.IMPN ---
Progress Note: A&P Assessment and Plan (1) Acute hypoxic respiratory failure: Code(s): J96.01 - Acute respiratory failure with hypoxia Status: Acute Assessment and Plan: Recently treated for PNA at outside facility came from rehab. CTA showing superimposed pulmonary fibrosis, patchy bilateral airspace suspicious for pneumonia. antibiotic therapy: Received cefepime/vanc/levofloxacin in ED now just on Levofloxacin sputum culture ordered influenza/COVID/RSV negative respiratory panel pending supplemental oxygen therapy to maintain oxygen 92%: She is currently on 2 L Bronchodilators q.6 hours as needed Pulmonology consulted and appreciate their recommendations. Home O2 eval prior to discharge. PFTs after discharge when closer to baseline. (2) Pulmonary fibrosis determined by high resolution computed tomography: Code(s): J84.10 - Pulmonary fibrosis, unspecified Status: Acute Assessment and Plan: pulmonology consulted on the patient. Continue bronchodilators. (3) Pleural effusion associated with pulmonary infection: Code(s): J18.9 - Pneumonia, unspecified organism; J91.8 - Pleural effusion in other conditions classified elsewhere Status: Acute Assessment and Plan: Pulmonology consulted and following COVID, flu and RSV negative Current CT scan appears to have loculated pleural effusion Spoke with patient's primary care physician Dr. Yogi Gandhi previous records showed diffuse pneumonia with a spontaneous pneumothorax with thoracostomy placed no previous loculated Rt pleural effusion Patient underwent thoracentesis yielding 100 mL of fluid. 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 (5) Normocytic anemia: Code(s): D64.9 - Anemia, unspecified Status: Acute Assessment and Plan: Iron panel with iron deficiency Ferrous sulfate daily Hgb 8.9 stable daily labs Transfuse hgb <7.0 (6) Rheumatoid arthritis: Qualifiers: Rheumatoid arthritis location: foot Rheumatoid factor presence: unspecified presence Laterality: bilateral Qualified Code(s): M06.9 - Rheumatoid arthritis, unspecified Code(s): M06.9 - Rheumatoid arthritis, unspecified Status: Acute Assessment and Plan: Due to history of RA patient is being evaluated lung related rheumatic diseases that could explain her pulmonary fibrosis. Pleural fluid analysis ordered and pending. Pulmonology on board. Subjective Date/time seen: 05/22/23 15:35 Interval history: Patient feeling well today. She denies shortness of breath, chest pain, nausea, vomiting or dysuria. She is having some abdominal muscle soreness from coughing. She denies a productive cough. She is still requiring oxygen but is currently being weaned down. She is now on 2 L. Patient underwent thoracentesis today. PT O2 evaluation for patient to return to [facility]. Exam Narrative: GENERAL: Comfortable, no acute distress HENMT: moist mucous membranes EYES: EOM intact b/l NECK: no lymphadenopathy RESPIRATORY: no increased respiratory effort, right lower lung base crackles, left lower lung base distant to auscultation CARDIO: Regular rate and rhythm GI: soft, nontender, bowel sounds present SKIN/EXTREMITIES: no rashes, no edema, no redness or tenderness NEURO: PROM intact, answers questions appropriately, A&O x4 Objective Data Vital Signs Vital Signs: Vital Signs - 24 hr 05/21/23 16:10 05/21/23 20:47 05/21/23 21:01 Temperature Pulse Rate 97 111 H 102 H Respiratory Rate 19 Blood Pressure Pulse Oximetry Oxygen Delivery Oxygen Flow Rate Fraction of Inspired Oxygen 05/21/23 21:09 05/21/23 20:48 05/21/23 20:
[2023-05-22] MEDS: busPIRone HCL 5 MG TABLET 15 MG PO (17:02)
[2023-05-22] MEDS: SERTRALINE HCL 50 MG TABLET 200 MG PO (17:02)
[2023-05-22] MEDS: CALCIUM CARBONATE (TUMS) 500 MG (200 MG ELEMENTAL) PO (18:38)
[2023-05-22] MEDS: ROSUVASTATIN 10 MG TABLET PO (21:01)
[2023-05-22] MEDS: carvediloL 12.5 MG TABLET PO (21:01)
[2023-05-22] MEDS: guaiFENesin 12 HR 600 MG TABCR PO (21:01)
[2023-05-22] MEDS: ZOLPIDEM TARTRATE (*CRX) 5 MG TABLET 10 MG PO (21:01)
[2023-05-22 22:11] LABS: Pneumococcal Antigen Urine Not Detected (Not Detected)
[2023-05-23] VITALS (15 sets, daily range): BP systolic 108–124; BP diastolic 71–88; PULSE 79–112; RESP 18–24; TEMP 35.9–37.4; O2SAT 91–100
[2023-05-23 07:39] LABS: Hematocrit 30.8 % (37.0-47.0); Hemoglobin 9.2 g/dL (12.0-15.0); Mean Corpuscular HGB Conc 29.9 g/dl (32-36); Mean Corpuscular Hemoglobin 30.1 pg (26-34); Mean Corpuscular Volume 100.7 fl (80-100); Mean Platelet Volume 10.5 fl (7.4-10.4); Platelet Count Result 199 k/mm3 (150-375); Red Blood Count 3.06 M/mm3 (4.2-5.4); Red Cell Distribution Width 17.8 % (11.5-14.5); White Blood Count 6.3 K/mm3 (4.5-10.0)
[2023-05-23 07:48] LABS: Alanine Aminotransferase 11 U/L (6-35); Albumin Level 2.9 g/dL (3.5-5.1); Alkaline Phosphatase 65 U/L (38-126); Anion Gap 6 mmol/L (4-12); Aspartate Amino Transferase 25 U/L (14-36); Bilirubin,Total 0.5 mg/dL (0.2-1.3); Blood Urea Nitrogen 10 mg/dL (7-17); Carbon Dioxide 23 mmol/L (22-30); Chloride 105 mmol/L (98-107); Estimated CRCL calculation 41 ml/min; Estimated Glomerular Filt Rate > 60; Glucose 73 mg/dL (65-110); Sodium 134 mmol/L (137-145)
[2023-05-23] MEDS: IPRATROPIUM 0.5 MG/ALBUTEROL SULFATE 2.5 MG AMPUL.NEB 3 ML INHALATION ×3 (09:03→20:19)
[2023-05-23] MEDS: busPIRone HCL 5 MG TABLET 15 MG PO ×2 (09:20→16:47)
[2023-05-23] MEDS: PANTOPRAZOLE 40 MG TABLET PO (09:20)
[2023-05-23] MEDS: DICYCLOMINE HCL 10 MG CAPSULE 20 MG PO ×4 (09:20→20:45)
[2023-05-23] MEDS: guaiFENesin 12 HR 600 MG TABCR PO ×2 (09:21→20:44)
[2023-05-23] MEDS: LOSARTAN POTASSIUM 25 MG TABLET PO (09:21)
[2023-05-23] MEDS: carvediloL 12.5 MG TABLET PO ×2 (09:21→20:45)
[2023-05-23] MEDS: FERROUS SULFATE 325 MG TABLET DR PO (09:21)
[2023-05-23] MEDS: ACETAMINOPHEN 325 MG TABLET 650 MG PO ×2 (11:58→20:49)
--- NOTE | 2023-05-23 13:33 | P.PNIM_ITS ---
Progress Note: A&P Assessment and Plan (1) Acute hypoxic respiratory failure: Code(s): J96.01 - Acute respiratory failure with hypoxia Status: Acute Assessment and Plan: Recently treated for PNA at outside facility came from rehab. * CTA showing superimposed pulmonary fibrosis, patchy bilateral airspace suspicious for pneumonia. * antibiotic therapy: Received cefepime/vanc/levofloxacin in ED now just on Levofloxacin * sputum culture pending * influenza/COVID/RSV negative * Bronchodilators q.6 hours as needed * Pulmonology consulted and appreciate their recommendations. * Home O2 eval prior to discharge. * PFTs after discharge when closer to baseline. * Patient back on room air. (2) Pulmonary fibrosis determined by high resolution computed tomography: Code(s): J84.10 - Pulmonary fibrosis, unspecified Status: Acute Assessment and Plan: * Pulmonology consulted on the patient. * Continue bronchodilators. (3) Pleural effusion associated with pulmonary infection: Code(s): J18.9 - Pneumonia, unspecified organism; J91.8 - Pleural effusion in other conditions classified elsewhere Status: Acute Assessment and Plan: * Pulmonology consulted and following * COVID, flu and RSV negative * Current CT scan appears to have loculated pleural effusion * Spoke with patient's primary care physician Dr. Yogi Gandhi previous records showed diffuse pneumonia with a spontaneous pneumothorax with thoracostomy placed no previous loculated Rt pleural effusion * Patient underwent thoracentesis yielding 100 mL of fluid on 05/22/23. 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 (5) Normocytic anemia: Code(s): D64.9 - Anemia, unspecified Status: Acute Assessment and Plan: * Iron panel with iron deficiency * Ferrous sulfate daily * Hgb 8.9 stable * daily labs * Transfuse hgb <7.0 (6) Rheumatoid arthritis: Qualifiers: Rheumatoid arthritis location: foot Rheumatoid factor presence: unspecified presence Laterality: bilateral Qualified Code(s): M06.9 - Rheumatoid arthritis, unspecified Code(s): M06.9 - Rheumatoid arthritis, unspecified Status: Acute Assessment and Plan: Due to history of RA patient is being evaluated lung related rheumatic diseases that could explain her pulmonary fibrosis. * Pleural fluid analysis ordered and pending. * Pulmonology on board. Subjective Date/time seen: 05/23/23 13:33 Interval history: 05/18/23: This is a 68-year-old female with rheumatoid arthritis, hypertension, hyperlipidemia, depression, anxiety, and gastroesophageal reflux disease who presented to the emergency department via EMS from [facility] for evaluation of shortness of breath. The patient provides the following history. She was hospitalized earlier this year at [facility] at which time she required mechanical ventilation for a period of time due to severe pneumonia, complicated by pneumothorax. She was in the hospital for nearly a month and she was discharged to [facility] for rehab. Within the last week she has developed a nonproductive cough and she was started on levofloxacin 3 days ago after she was found to have evidence of bilateral pneumonia on an outpatient chest
--- NOTE | 2023-05-23 13:33 | PM.IMPN ---
Progress Note: A&P Assessment and Plan (1) Acute hypoxic respiratory failure: Code(s): J96.01 - Acute respiratory failure with hypoxia Status: Acute Assessment and Plan: Recently treated for PNA at outside facility came from rehab. CTA showing superimposed pulmonary fibrosis, patchy bilateral airspace suspicious for pneumonia. antibiotic therapy: Received cefepime/vanc/levofloxacin in ED now just on Levofloxacin sputum culture pending influenza/COVID/RSV negative Bronchodilators q.6 hours as needed Pulmonology consulted and appreciate their recommendations. Home O2 eval prior to discharge. PFTs after discharge when closer to baseline. Patient back on room air. (2) Pulmonary fibrosis determined by high resolution computed tomography: Code(s): J84.10 - Pulmonary fibrosis, unspecified Status: Acute Assessment and Plan: Pulmonology consulted on the patient. Continue bronchodilators. (3) Pleural effusion associated with pulmonary infection: Code(s): J18.9 - Pneumonia, unspecified organism; J91.8 - Pleural effusion in other conditions classified elsewhere Status: Acute Assessment and Plan: Pulmonology consulted and following COVID, flu and RSV negative Current CT scan appears to have loculated pleural effusion Spoke with patient's primary care physician Dr. Yogi Gandhi previous records showed diffuse pneumonia with a spontaneous pneumothorax with thoracostomy placed no previous loculated Rt pleural effusion Patient underwent thoracentesis yielding 100 mL of fluid on 05/22/23. Analysis of the fluid with no signs of infection thus far (4) Hypokalemia: Code(s): E87.6 - Hypokalemia Status: Acute Assessment and Plan: Replenished monitor and replenish daily surveillance monitor (5) Normocytic anemia: Code(s): D64.9 - Anemia, unspecified Status: Acute Assessment and Plan: Iron panel with iron deficiency Ferrous sulfate daily Hgb 8.9 stable daily labs Transfuse hgb <7.0 (6) Rheumatoid arthritis: Qualifiers: Rheumatoid arthritis location: foot Rheumatoid factor presence: unspecified presence Laterality: bilateral Qualified Code(s): M06.9 - Rheumatoid arthritis, unspecified Code(s): M06.9 - Rheumatoid arthritis, unspecified Status: Acute Assessment and Plan: Due to history of RA patient is being evaluated lung related rheumatic diseases that could explain her pulmonary fibrosis. Pleural fluid analysis ordered and pending. Pulmonology on board. Subjective Date/time seen: 05/23/23 13:33 Interval history: 05/18/23: This is a 68-year-old female with rheumatoid arthritis, hypertension, hyperlipidemia, depression, anxiety, and gastroesophageal reflux disease who presented to the emergency department via EMS from [facility] for evaluation of shortness of breath. The patient provides the following history. She was hospitalized earlier this year at [facility] at which time she required mechanical ventilation for a period of time due to severe pneumonia, complicated by pneumothorax. She was in the hospital for nearly a month and she was discharged to [facility] for rehab. Within the last week she has developed a nonproductive cough and she was started on levofloxacin 3 days ago after she was found to have evidence of bilateral pneumonia on an outpatient chest x-ray. She has reportedly been running a fever. She complains of intermittent, diffuse chest pain which she has difficulties describing but she goes on to say that this has been an ongoing problem for several months and in fact she had a cardiac catheterization in January 2023 which was reportedly unremarkable. Her appetite has been okay. She has frequent heartburn symptoms which she attributes to GERD and a known hiatal hernia. She denies headache, sore throat, pleuriti
[2023-05-23] MEDS: SERTRALINE HCL 50 MG TABLET 200 MG PO (16:47)
[2023-05-23] MEDS: levoFLOXacin 750 MG/D5W 150 ML 750 MG/150 ML BAG 100 MG IVPB (16:47)
[2023-05-23] MEDS: BENZONATATE 100 MG CAPSULE PO (20:44)
[2023-05-23] MEDS: ZOLPIDEM TARTRATE (*CRX) 5 MG TABLET 10 MG PO (20:44)
[2023-05-23] MEDS: ROSUVASTATIN 10 MG TABLET PO (20:45)
[2023-05-24] VITALS (11 sets, daily range): BP systolic 93–105; BP diastolic 57–60; PULSE 87–111; RESP 16–20; TEMP 36.2–36.8; O2SAT 93–98
[2023-05-24 00:30] LABS: Legionella pneumophila Ag Ur Not Detected (Not Detected)
[2023-05-24 07:04] LABS: Hematocrit 28.5 % (37.0-47.0); Hemoglobin 8.8 g/dL (12.0-15.0); Mean Corpuscular HGB Conc 30.9 g/dl (32-36); Mean Corpuscular Hemoglobin 30.4 pg (26-34); Mean Corpuscular Volume 98.6 fl (80-100); Mean Platelet Volume 10.2 fl (7.4-10.4); Platelet Count Result 205 k/mm3 (150-375); Red Blood Count 2.89 M/mm3 (4.2-5.4); Red Cell Distribution Width 17.5 % (11.5-14.5); White Blood Count 6.2 K/mm3 (4.5-10.0)
[2023-05-24 07:10] LABS: Alanine Aminotransferase 11 U/L (6-35); Albumin Level 2.8 g/dL (3.5-5.1); Alkaline Phosphatase 65 U/L (38-126); Anion Gap 5 mmol/L (4-12); Aspartate Amino Transferase 27 U/L (14-36); Bilirubin,Total 0.4 mg/dL (0.2-1.3); Blood Urea Nitrogen 10 mg/dL (7-17); Calcium 8.7 mg/dL (8.4-10.2); Carbon Dioxide 23 mmol/L (22-30); Chloride 105 mmol/L (98-107); Estimated CRCL calculation 41 ml/min; Estimated Glomerular Filt Rate > 60; Glucose 79 mg/dL (65-110); Potassium 3.4 mmol/L (3.4-5.0); Sodium 133 mmol/L (137-145)
[2023-05-24] MEDS: IPRATROPIUM 0.5 MG/ALBUTEROL SULFATE 2.5 MG AMPUL.NEB 3 ML INHALATION ×2 (07:42→13:32)
[2023-05-24] MEDS: BENZONATATE 100 MG CAPSULE PO ×2 (09:24→17:20)
[2023-05-24] MEDS: CALCIUM CARBONATE (TUMS) 500 MG (200 MG ELEMENTAL) PO (09:24)
[2023-05-24] MEDS: PANTOPRAZOLE 40 MG TABLET PO (09:24)
[2023-05-24] MEDS: ACETAMINOPHEN 325 MG TABLET 650 MG PO ×2 (09:24→17:21)
[2023-05-24] MEDS: DICYCLOMINE HCL 10 MG CAPSULE 20 MG PO ×3 (09:25→17:20)
[2023-05-24] MEDS: FERROUS SULFATE 325 MG TABLET DR PO (09:25)
[2023-05-24] MEDS: carvediloL 12.5 MG TABLET PO (09:25)
[2023-05-24] MEDS: LOSARTAN POTASSIUM 25 MG TABLET PO (09:25)
[2023-05-24] MEDS: guaiFENesin 12 HR 600 MG TABCR PO (09:25)
[2023-05-24] MEDS: busPIRone HCL 5 MG TABLET 15 MG PO ×2 (09:25→17:21)
--- NOTE | 2023-05-24 10:34 | PCNFU ---
Nutrition Follow-Up Complete: Suboptimal po intake related to appetite as evidenced by pt report Goal:PO intake 75% or greater for meals and supplements. Pt current nutrition is Heart healthy, Ensure compact BID. Nutrition recommendation: continue with current plan of care Last recorded weight is 56 kg. Bowel Motility: +BM 05/19 Labs Reviewed: Hgb:8.8, HCT:28.5, Alb:2.8, NA:133 Meds Noted: lovenox, zofran, KCL, protonix Skin: no skin issues noted Additional Notes: Pt continues on a heart healthy diet. Intake 75% most meals, ensure compact BID in place. Encourage good po intake to continue. Agree with diet orders. Monitor intake, wt, labs. Follow up in 5 days.
--- NOTE | 2023-05-24 16:21 | PM.PNPUL ---
Progress Note: A&P Assessment and Plan (1) Acute hypoxic respiratory failure: Code(s): J96.01 - Acute respiratory failure with hypoxia Status: Acute Assessment and Plan: Improved; she was admitted with acute hypoxemic respiratory failure at [facility] 03/31/2023; had a rough course, intubated for a week, (R) ptx with pigtail catheter, weaned off O2 before going to rehab. She worsened at rehab, dropped saturation, came to [place] 05/18/23 with bilateral infiltrates which did not appear as diffuse as the image from records at [facility]. Now, has a small right pleural effusion and infiltrates; this is consistent with non-resolving pneumonia; she had extensive testing last month. She is better, needs 2 l/min with exertion. On admission, saturation in the mid 80% range with exertion. Walk study today showed need to 2 L/min with exertion. After discharge here and after rehab at [facility], she needs to have PFTs, she may have RA-associated lung disease which may include ILD, rheumatoid effusion; no nodules are visible. 05/19/23 barium swallow : Normal swallowing function without penetration or aspiration. This was ordered as she has large hiatal hernia; continues to take PPI - pantoprazole (2) Rheumatoid arthritis: Qualifiers: Laterality: bilateral Rheumatoid arthritis location: foot Rheumatoid factor presence: unspecified presence Qualified Code(s): M06.9 - Rheumatoid arthritis, unspecified Code(s): M06.9 - Rheumatoid arthritis, unspecified Status: Acute Assessment and Plan: Longer than 20 years; has failed Humira, Enbrel, Orencia and Xeljanz. Her last abatacept infusion was March 18, 2023. She had golimumab ( Simponi )in December 2022 RA is associated with lung disease; most common finding is ILD, and she appears to have ILD on chest CT. When RA and ILD co-exist, the treatment for the interstitial lung disease is to manage the underlying rheumatoid arthritis. Whatever treatment helps the joints should also help the lungs. She has been on many medications, was on Xeljanz for a long time but most of the others she has been on for shorter periods of time. (3) Recurrent pneumonia: Code(s): J18.9 - Pneumonia, unspecified organism Status: Acute Assessment and Plan: Pneumonia Mar 31, 2023 admitted at [facility], work up was negative for the usual community acquired pathogens, swabs negative for SARS-CoV-2, influenza, RSV, Urine antigens negative for Legionella and pneumococcal disease; blood cultures (+) for CMV treated with ganciclovir in addition to ceftriaxone, azithromycin and Bactrim for empiric treatment of PJP- Pneumocystis jiroveci. On 05/17, procalcitonin was 0.1, negative, indicating unlikely that she has a bacterial infection. These recurrent infiltrates on chest CT may not be infectious, they may be inflammatory, they may represent inflammation /fibrosis/ drug reactions. (4) Immunosuppression: Code(s): D84.9 - Immunodeficiency, unspecified Status: Acute Assessment and Plan: She is immunosuppressed due to having rheumatoid arthritis which is in autoimmune disease as well as treatment for RA with very as biologic, most recent treatment was February with abatacept (5) Pulmonary fibrosis determined by high resolution computed tomography: Code(s): J84.10 - Pulmonary fibrosis, unspecified Status: Acute Assessment and Plan: She has RA-ILD; she does not have severe ILD radiographically, no clear UIP pattern. She does not appear to be a candidate for antifibrotic meds at this time. Plan Pleural fluid has normal pH, does not have empyema or par
--- NOTE | 2023-05-24 16:33 | P.DS_ITS ---
DS: Admitting Diagnosis Discharge Date 05/25/23 Admitting Diagnosis Pneumonia DS: Discharge Diagnosis Discharge Diagnosis (1) Acute hypoxic respiratory failure: Code(s): J96.01 - Acute respiratory failure with hypoxia Status: Acute Assessment and Plan: Recently treated for PNA at outside facility came from rehab. * CTA showing superimposed pulmonary fibrosis, patchy bilateral airspace suspicious for pneumonia. * antibiotic therapy: Received cefepime/vanc/levofloxacin in ED now just on Levofloxacin * influenza/COVID/RSV negative * Bronchodilators q.6 * Pulmonology consulted and appreciate their recommendations. * PFTs as outpatient * Patient back on room air. (2) Pulmonary fibrosis determined by high resolution computed tomography: Code(s): J84.10 - Pulmonary fibrosis, unspecified Status: Acute Assessment and Plan: * Pulmonology consulted on the patient. * Continue bronchodilators. (3) Pleural effusion associated with pulmonary infection: Code(s): J18.9 - Pneumonia, unspecified organism; J91.8 - Pleural effusion in other conditions classified elsewhere Status: Acute Assessment and Plan: * Pulmonology consulted and following * COVID, flu and RSV negative * Current CT scan appears to have loculated pleural effusion * Spoke with patient's primary care physician Dr. Yogi Gandhi previous records showed diffuse pneumonia with a spontaneous pneumothorax with tho racostomy placed no previous loculated Rt pleural effusion * Patient underwent thoracentesis yielding 100 mL of fluid on 05/22/23. 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 (5) Normocytic anemia: Code(s): D64.9 - Anemia, unspecified Status: Acute Assessment and Plan: * Iron panel with iron deficiency * Ferrous sulfate daily * Hgb 8.9 stable * daily labs * Transfuse hgb <7.0 (6) Rheumatoid arthritis: Qualifiers: Laterality: bilateral Rheumatoid arthritis location: foot Rheumatoid factor presence: unspecified presence Qualified Code(s): M06.9 - Rheumatoid arthritis, unspecified Code(s): M06.9 - Rheumatoid arthritis, unspecified Status: Acute Assessment and Plan: Due to history of RA patient is being evaluated lung related rheumatic diseases that could explain her pulmonary fibrosis. * Pleural fluid analysis ordered and pending. * Pulmonology on board. DS: Summary Hospital Course Hospital Course: This is a 68-year-old female with rheumatoid arthritis, hypertension, hyperlipidemia, depression, anxiety, and gastroesophageal reflux disease who presented to the emergency department via EMS from [facility] for evaluation of shortness of breath. The patient provides the following history. She was hospitalized earlier this year at [facility] at which time she required mechanical ventilation for a period of time due to severe pneumonia, complicated by pneumothorax. She was in the hospital for nearly a month and she was discharged to [facility] for rehab. Within the last week she has developed a nonproductive cough and she was started on levofloxacin, after she was found to have evidence of bilateral pneumonia on an outpatient chest x-ray. She has reportedly been running a fever. She complain
--- NOTE | 2023-05-24 16:33 | PM.DS ---
DS: Admitting Diagnosis Discharge Date 05/25/23 Admitting Diagnosis Pneumonia DS: Discharge Diagnosis Discharge Diagnosis (1) Acute hypoxic respiratory failure: Code(s): J96.01 - Acute respiratory failure with hypoxia Status: Acute Assessment and Plan: Recently treated for PNA at outside facility came from rehab. CTA showing superimposed pulmonary fibrosis, patchy bilateral airspace suspicious for pneumonia. antibiotic therapy: Received cefepime/vanc/levofloxacin in ED now just on Levofloxacin influenza/COVID/RSV negative Bronchodilators q.6 Pulmonology consulted and appreciate their recommendations. PFTs as outpatient Patient back on room air. (2) Pulmonary fibrosis determined by high resolution computed tomography: Code(s): J84.10 - Pulmonary fibrosis, unspecified Status: Acute Assessment and Plan: Pulmonology consulted on the patient. Continue bronchodilators. (3) Pleural effusion associated with pulmonary infection: Code(s): J18.9 - Pneumonia, unspecified organism; J91.8 - Pleural effusion in other conditions classified elsewhere Status: Acute Assessment and Plan: Pulmonology consulted and following COVID, flu and RSV negative Current CT scan appears to have loculated pleural effusion Spoke with patient's primary care physician Dr. Yogi Gandhi previous records showed diffuse pneumonia with a spontaneous pneumothorax with thoracostomy placed no previous loculated Rt pleural effusion Patient underwent thoracentesis yielding 100 mL of fluid on 05/22/23. Analysis of the fluid with no signs of infection (4) Hypokalemia: Code(s): E87.6 - Hypokalemia Status: Acute Assessment and Plan: Replenished monitor and replenish daily hall monitor (5) Normocytic anemia: Code(s): D64.9 - Anemia, unspecified Status: Acute Assessment and Plan: Iron panel with iron deficiency Ferrous sulfate daily Hgb 8.9 stable daily labs Transfuse hgb <7.0 (6) Rheumatoid arthritis: Qualifiers: Laterality: bilateral Rheumatoid arthritis location: foot Rheumatoid factor presence: unspecified presence Qualified Code(s): M06.9 - Rheumatoid arthritis, unspecified Code(s): M06.9 - Rheumatoid arthritis, unspecified Status: Acute Assessment and Plan: Due to history of RA patient is being evaluated lung related rheumatic diseases that could explain her pulmonary fibrosis. Pleural fluid analysis ordered and pending. Pulmonology on board. DS: Summary Hospital Course Hospital Course: This is a 68-year-old female with rheumatoid arthritis, hypertension, hyperlipidemia, depression, anxiety, and gastroesophageal reflux disease who presented to the emergency department via EMS from [facility] for evaluation of shortness of breath. The patient provides the following history. She was hospitalized earlier this year at [facility] at which time she required mechanical ventilation for a period of time due to severe pneumonia, complicated by pneumothorax. She was in the hospital for nearly a month and she was discharged to [facility] for rehab. Within the last week she has developed a nonproductive cough and she was started on levofloxacin, after she was found to have evidence of bilateral pneumonia on an outpatient chest x-ray. She has reportedly been running a fever. She complains of intermittent, diffuse chest pain which she has difficulties describing but she goes on to say that this has been an ongoing problem for several months and in fact she had a cardiac catheterization in January 2023 which was reportedly unremarkable. In the ED: She was afebrile on arrival with stable blood pressures. SpO2 was 100% on 6 L nasal cannula. Labs were significant for WBC count of 5.3, hemoglobin 9.9, sodium 137, potassium 2.6, BUN 7, creatinine 0.60, lactic aci
[2023-05-24] MEDS: SERTRALINE HCL 50 MG TABLET 200 MG PO (17:22)
[2023-05-24 18:56] LABS: SARS-CoV-2 RNA PCR Negative (Negative)
[2023-05-24 19:23] LABS: SS-A <1.0; SS-B <1.0
[2023-05-26 22:43] LABS: Glucose Pleural Fluid 79 mg/dL; Total Protein Pleural Fluid <3.0 g/dL
== END 2023-05-24 19:10 | DRG 193 ==
LOC: ANHED 14:02 → ANH3MEDSUR 16:50
PROVIDERS: Internal Medicine Critical Care Medicine; Nurse Practitioner Family; Physician Assistant; Admitting Provider Internal Medicine; Emergency Provider Emergency Medicine; PCP Internal Medicine Geriatric Medicine; Visit Provider Hospitalist
DX: J18.9 Pneumonia, unspecified organism (principal); J96.01 Acute respiratory failure with hypoxia; J91.8 Pleural effusion in other conditions classified elsewhere; E87.6 Hypokalemia; M05.10 Rheumatoid lung disease with rheumatoid arthritis of unspecified site; I10 Essential (primary) hypertension; E78.5 Hyperlipidemia, unspecified; K21.9 Gastro-esophageal reflux disease without esophagitis; F32.A Depression, unspecified; F41.9 Anxiety disorder, unspecified; K44.9 Diaphragmatic hernia without obstruction or gangrene; N39.41 Urge incontinence; D50.9 Iron deficiency anemia, unspecified; J84.10 Pulmonary fibrosis, unspecified; Z20.822 Contact with and (suspected) exposure to COVID-19; Z96.611 Presence of right artificial shoulder joint
CPT/HCPCS: 32555; 36415; 36600; 71046; 71250; 71275; 80048; 80053; 82465; 82607; 82728; 82746; 82805; 82945; 82947; 83540; 83550; 83605; 83615; 83690; 83735; 83880; 83986; 84132; 84145; 84155; 84157; 84311; 84443; 84484; 85025; 85027; 85610; 85730; 86140; 86235; 86738; 87015; 87040; 87070; 87075; 87102; 87116; 87205; 87206; 87449; 87635; 87637; 87641; 87899; 89051; 92611; 93005; 93306; 94640; 96365; 96372; 97110; 97116; 97161; 97166; 99285; A9270; G0378; J0692; J1650; J1956; J2270; J3370; J3480; J7040; Q9967

== ENCOUNTER 2025-01-01 10:23 | Outpatient (CLI) | payer MEDICARE, SELFPAY ==
--- OUTSIDE RECORDS SUMMARY | 2024-05-14 07:20 | XMS_ITS ---
Author Organization [facility] Address [address], [place] [id number] Care Team Providers Care Hat Mender Name Role Phone Stormy Stein Unavailable [phone] Allergies No Known Allergies Medications Medication SIG (Take, Route, Frequency, Duration) Notes Start Date End Date Status Zolpidem Tartrate 10 MG 1 tablet at bedt severo as needed Orally Once a day Active Potassium Chloride ER 10 MEQ 1 tablet with food Orally Twice a day Active Rosuvastatin Calcium 10 MG 1 tablet Orally Once a day Active Diclofenac Active busPIRone HCl 15 MG 1 tablet Orally Twic e a day Active Losartan Potassium 25 MG 1 tablet Orally Once a day Active hydrOXYzine HCl 10 MG 1 tablet as needed Orally Once a day Active Actemra ACTPen 162 MG/0.9ML Inject 1 pen (162mg) subcutaneous every 2 weeks; Duration: 84 days 05/15/2024 08/07/2024 Active ZyrTEC 10 MG 1 tablet Orally Once a day Active Alendronate Sodium 70 MG 1 tablet 30 min utes before the first food, beverage or medicine of the day with plain water Orally Active Omeprazole 20 MG 1 capsule 1/2 to 1 h our before morning meal Orally Once a day Active Ferrous Sulfate 325 (65 Fe) MG 1 tablet Orally Three times a Week Active Carvedilol 12.5 MG 1 tablet with food O rally Twice a day Active Flonase Allergy Relief 50 MCG/ACT 1 spray in each nostril Nasally Twice a day Active Osphena 60 MG 1 tablet with food O rally Once a day Active Sertraline HCl 100 MG 1 tablet Orally On ce a day Active predniSONE 5 MG 1 tablet with food o r milk Orally Once a day Active Social History Tobacco Use: Social History Observation Description Date Details (start date - stop date) Never Smoker NA - NA Sex Assigned At : Social History Observation Description Sex Assigned At Unknown Tobacco Control (Standard) Question Answer Notes Tobacco use: Nonsmoker Problems Problem Type SNOMED Code ICD Code Onset Dates Problem Status W/U Status Risk Notes Problem Rheumatoid arthritis (40335576) Rheumatoid arthritis, involving unspecified site, unspecified whether rheumatoid factor present (M06.9) Active confirmed Problem Rheumatoid arthritis (13231351) Rheumatoid arthritis (M06.9) Active confirmed Problem Irritable bowel syndrome (36467899) IBS (irritable bowel syndrome) (K58.9) Active confirmed Problem Osteoporosis (09420709) Osteoporosis (M81.0) Active confirmed Problem Osteoarthritis (364247398) OA (osteoarthritis) (M19.90) Active confirmed Problem Fibromyalgia (320885916) Fibromyalgia (M79.7) Active confirmed Problem Fatigue (79912565) Fatigue (R53.83) Active conf irmed Problem Anemia (159990199) Anemia (D64.9) Active confir med Problem Diverticular disease of colon (383763002) Diverticulosis (K57.90) Active confirmed Problem 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) ILD (interstitial lung disease) (J84.9) Active confirmed Problem Red blood cell disorder (93877897) Red blood cell disorder (D75.89) Active confirmed Problem Dry eyes (161438186) Dry eyes (H04.129) Active confirmed Problem Myocardial infarction (95488700) IN (myocardial infarction) (I21.3) Active confirmed Problem Pneumonia (829233006) Pneumonia (J18.9) Active confirmed Problem Hiatal hernia (19290618) Hiatal hernia (K44.9) Active confirmed Vital Signs Height 60 in 05/14/2024 Weight 115 lbs 05/14/2024 BMI 22.46 kg/m2 05/14/2024 Height-cm 152.4 cm 05/14/2024 Weight-kg 52.16 kg 05/14/2024 Encounters Encounter Location Date Provider Diagnosis [address] [place], [place] [id number] 05/14/2024 Stormy Stein Rheumatoid arthritis, involving unspecified site, unspecified whether rheumatoid factor present M06.9 ; Other alf (current) drug therapy Z79.899 and Routine health maintenance Z00.00 Assessments Encounter Date Diagnosis (ICD Code) Assessment Notes Treatment Notes Treatment Clinical Notes Section Notes 05/14/2024 Rheumatoid arthritis, involving unspecified site, unspecified whether rheumatoid factor present (ICD-10 - M06.9) Ms. Pineda is a 69 year-old female with rheumatoid arthritis, currently managed by Dr. Mills. At this time, patient will begin Actemra. 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 SCREENING: (05/12/2024) CDAI: 30 (05/12/2024) RAPID3: 19.2 LABS: QuantiFERON-TB Gold (04/06/2024): Negative Hepatitis B Surface Antigen (04/06/2024): NR Counseled that rheumatoid arthritis is chronic in nature with periods of remission and flares. Flares can be triggered by stress, and infections. Do NOT drink alcohol with this medication due to serious interactions. Counseled that patients on Actemra are at increased risk for developing serious infections that may lead to hospitalization or , including tuberculosis, bacterial, invasive fungal, viral, or other opportunistic infections. Patient to call the office with any concerns or infections. 05/14/2024 Other alf (current) drug therapy (ICD-10 - Z79.899) When on high-risk medications, patient must be vigilant about any new symptoms and understand the risks and side effects of their treatment. Biologic/small molecule medications can have significant side effects that may require blood test monitoring on a regular basis. Patient to contact providers for fever, chills, night sweats, malaise, abdominal pain, weakness, fatigue, headaches, infections, difficulty breathing or persistent cough, new skin lesions, or other unusual symptoms. 05/14/2024 Routine health maintenance (ICD-10 - Z00.00) https://www.cdc.gov /vaccines/schedules /downloads/adult/ad fww-ppvhvnlw-hhbmey le.pdf Plan Of Treatment Medication Medication Name Sig Start Date Stop Date Notes Actemra ACTPen 162 MG/0.9ML Inject 1 pen (162mg) subcutaneous every 2 weeks; Duration: 84 days 05/15/2024 08/07/2024 Treatment Notes Assessment Notes Rheumatoid arthritis, involv ing unspecified site, unspecified whether rheumatoid factor present Ms. Pineda is a 69 year-old female with rheumatoid arthritis, currently managed by Dr. Mills. At this time, patient will begin Actemra. 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 SCREENING: (05/12/2024) CDAI: 30 (05/12/2024) RAPID3: 19.2 LABS: QuantiFERON-TB Gold (04/06/2024): Negative Hepatitis B Surface Antigen (04/06/2024): NR Counseled that rheumatoid arthritis is chronic in nature with periods of remission and flares. Flares can be triggered by stress, and infections. Do NOT drink alcohol with this medication due to serious interactions. Counseled that patients on Actemra are at increased risk for developing serious infections that may lead to hospitalization or , including tuberculosis, bacterial, invasive fungal, viral, or other opportunistic infections. Patient to call the office with any concerns or infections. Other alf (current) drug therapy W hen on high-risk medications, patient must be vigilant about any new symptoms and understand the risks and side effects of their treatment. Biologic/small molecule medications can have significant side effects that may require blood test monitoring on a regular basis. Patient to contact providers for fever, chills, night sweats, malaise, abdominal pain, weakness, fatigue, headaches, infections, difficulty breathing or persistent cough, new skin lesions, or other unusual symptoms. Routine health maintenance https://www.c dc.gov/vaccines/schedules/downl oads/adult/osoqe-msmgbasi-ebccxkec.pdf Progress Notes * MANNY PINEDAB:05/1955 (69 yo F)Acc No.[id number]:05/14/2024 Patient: Ismael NANNETTEDANADOLORESESTRELLAESA Provider: Emma Stein :1955 A ge:69 Y S ex:Female Date:05/14/2024 Address:[address] [place] [address] [place], [id number] Subjective: * Chief Complaints: * * HPI: T elemedicine: Ms. Pineda is a 69 year-old female with rheumatoid arthritis, currently managed by Dr. Mills. Patient's past medical history is notable for interstitial lung disease, dry eyes, [place], pneumonia, chronic fatigue, osteoporosis, OA, FMS, anemia, diverticulosis, IBS, and hiatal hernia. Family history notable for colon cancer and arthritis. We will be assisting with immunologic and infectious disease monitoring recommendations in the setting of immunomodulatory therapy. RHEUMATOID HISTORY: The patient reports joint pain, swelling, and stiffness specifically in her shoulders, lower back, and hands. Previously, the patient has tried and failed diclofenac, prednisone, methotrexate, HCQ, Leflunomide, Azathioprine, Humira, Enbrel, Orencia, Olumiant, Xeljanz, Rinvoq, Rituxan, and Simponi.The patient does occasionally take OTC meds, including Tylenol. Patient denies hospitalizations or ER visits within the last six months. Patient was called to verify their medical status and their prescription status. At this time, there are no changes to our prescription plans. [facility] is assisting as a specialty team in monitoring their health in consult with the patient's welding machine feeder. Biologic/small molecule agents affect human immunology can put patients at risk for various infections and malignancies. Proper monitoring with lab tests and an updated vaccination profile can minimize these risks. A [facility] steam gigger will be available to the patient for medication management. * Medical History: R heumatoid arthritis, IBS (irritable bowel syndrome), Osteoporosis, OA (osteoarthritis), Fibromyalgia, Fatigue, Anemia, Diverticulosis, ILD (interstitial lung disease), Red blood cell disorder, Dry eyes, IN (myocardial infarction), Pneumonia, Hiatal hernia. * Hospitalization/Major Diagno stic Procedure: D enies Past Hospitalization. * Family History: F ather: arthritis. M other: colon cancer. * Social History: T obacco Use: T obacco Control (Standard) T obacco use: N onsmoker * Medications: T aking hydrOXYzine HCl 10 MG Tablet 1 tablet as needed Orally Once a day , Taking Losartan Potassium 25 MG Tablet 1 tablet Orally Once a day , Taking Alendronate Sodium 70 MG Tablet 1 tablet 30 minutes before the first food, beverage or medicine of the day with plain water Orally , Taking busPIRone HCl 15 MG Tablet 1 tablet Orally Twice a day , Taking Rosuvastatin Calcium 10 MG Tablet 1 tablet Orally Once a day , Taking Diclofenac , Taking Zolpidem Tartrate 10 MG Tablet 1 tablet at bedtime as needed Orally Once a day , Taking Potassium Chloride ER 10 MEQ Tablet Extended Release 1 tablet with food Orally Twice a day , Taking Sertraline HCl 100 MG Tablet 1 tablet Orally Once a day , Taking predniSONE 5 MG Tablet 1 tablet with food or milk Orally Once a day , Taking Ferrous Sulfate 325 (65 Fe) MG Tablet 1 tablet Orally Three times a Week , Taking Carvedilol 12.5 MG Tablet 1 tablet with food Orally Twice a day , Taking Omeprazole 20 MG Capsule Delayed Release 1 capsule 1/2 to 1 hour before morning meal Orally Once a day , Taking Flonase Allergy Relief 50 MCG/ACT Suspension 1 spray in each nostril Nasally Twice a day , Taking Osphena 60 MG Tablet 1 tablet with food Orally Once a day , Taking ZyrTEC 10 MG Tablet Chewable 1 tablet Orally Once a day , Medication List reviewed and reconciled with the patient * Allergies: N .K.D.A. Objective: * Vitals: W t:115lbs, Wt-k.16 kg, Ht:60in, Ht-cm: 152.4 cm, BMI:22.46Index, Body Surface Area: 1.48. Assessment: * Assessment: 1. R heumatoid arthritis, involving unspecified site, unspecified whether rheumatoid factor present - M06.9 2 . O ther alf (current) drug therapy - Z79.899 ?3. R Redapt health maintenance - Z00.00 Plan: * Treatment: 2. O ther alf (current) drug therapy Notes:When on high-risk medications, patient must be vigilant about any new symptoms and understand the risks and side effects of their treatment. Biologic/small molecule medications can have significant side effects that may require blood test monitoring on a regular basis. Patient to contact providers for fever, chills, night sweats, malaise, abdominal pain, weakness, fatigue, headaches, infections, difficulty breathing or persistent cough, new skin lesions, or other unusual symptoms. 3. R [facility] health maintenance Notes:https://www.cdc.gov/vaccines/sched ules/downloads/adult/lrydp-hnxzyxpy-tqmkj ule.pdf * Billing Information: * Visit Code: * Procedure Codes: Care Plan Details* * Electronic signature of PAYAL Victor on 01/01/2025 at 11:08 AM SUPERVISOR SAMPLE Sign off status: Pending * Provider: Emma Stein Date: 0 05/14/2024 Generated for Ezekiel malhotra/Deya/Carolee on: 1 03/03/2024 11:08 AM SUPERVISOR SAMPLE History and Physical Notes * HPI (History of Present Illness) Category Sub-Category Detail Notes Category Not es Telemedicine Ms. Pineda is a 69 year-old female with rheumatoid arthritis, currently managed by Dr. Mills. Patient's past medical history is notable for interstitial lung disease, dry eyes, [place], pneumonia, chronic fatigue, osteoporosis, OA, FMS, anemia, diverticulosis, IBS, and hiatal hernia. Family history notable for colon cancer and arthritis. We will be assisting with immunologic and infectious disease monitoring recommendations in the setting of immunomodulatory therapy. RHEUMATOID HISTORY: The patient reports joint pain, swelling, and stiffness specifically in her shoulders, lower back, and hands. Previously, the patient has tried and failed diclofenac, prednisone, methotrexate, HCQ, Leflunomide, Azathioprine, Humira, Enbrel, Orencia, Olumiant, Xeljanz, Rinvoq, Rituxan, and Simponi.The patient does occasionally take OTC meds, including Tylenol. Patient denies hospitalizations or ER visits within the last six months. Patient was called to verify their medical status and their prescription status. At this time, there are no changes to our prescription plans. [facility] is assisting as a specialty team in monitoring their health in consult with the patient's welding machine feeder. Biologic/small molecule agents affect human immunology can put patients at risk for various infections and malignancies. Proper monitoring with lab tests and an updated vaccination profile can minimize these risks. A [facility] steam gigger will be available to the patient for medication management.
--- NOTE | ~2025-01-01 | MM_ITS ---
EXAMINATION: MM screening [facility] BI w carol HISTORY: Screening TECHNIQUE: Craniocaudal and mediolateral oblique 3-D tomosynthesis images were obtained and synthetic 2-D images were generated. CAD analysis was submitted and interpreted. COMPARISON: Comparison to multiple prior studies sequentially, with oldest reviewed study dated 05/19/2018. BREAST PARENCHYMAL COMPOSITION: Not dense: There are scattered areas of fibroglandular density. FINDINGS: There is no evidence of suspicious mass, calcification, or architectural distortion to suggest malignancy in either breast. There has been no suspicious interval change. IMPRESSION: 1. No mammographic evidence of malignancy. 2. Recommend routine screening mammography in one year. BI-RADS Category 1: Negative Reviewed, dictated and finalized at location O. 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
--- OUTSIDE RECORDS SUMMARY | 2025-01-01 11:08 | XMS_ITS | Clinical Summary ---
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 Name Role Phone Yogi Max MD Primary Care Provider + Rachel Mills MD Unavailable Robbie Cordova MD Unavailable [phone] Allergies No known active allergies Medications ospemifene (OSPHENA) 60 mg tablet take 1 tablet by oral route every day with food 0 0 4 Active busPIRone (BUSPAR) 15 mg tabletIndicatio ns:Generalized Anxiety Disorder Take 1 tablet (15 mg total) by mouth 2 (two) times a day 7 Active fluticasone (FLONASE) 50 mcg/actuation nasal spray Administer 2 sprays into each nostril daily 7 Active alendronate (FOSAMAX) 70 mg tablet Take 1 tablet (70 mg total) by mouth every 7 days Take in the morning with a full glass of water, on an empty stomach, and do not take anything else by mouth or lie down for the next 30 min. On Saturday Active cetirizine (ZyrTEC) 10 mg tablet Take 1 tablet (10 mg total) by mouth daily Active hydrOXYzine (ATARAX) 10 mg tablet Take 1 tablet (10 mg total) by mouth nightly as needed for itching Active rosuvastatin (Crestor) 10 mg tablet Take 0.5 tablets (5 mg total) by mouth daily 15 tablet 2 4 Active carvediloL (COREG) 12.5 mg tablet Take 1 tablet (12.5 mg total) by mouth 2 (two) times a day with meals 4 Active potassium chloride ER 10 mEq CR capsule Take 1 tablet/capsule (10 mEq total) by mouth 2 (two) times a day 4 Active zolpidem (AMBIEN) 10 mg tabletIndicatio ns:Sleep-Onset Insomnia Take 1 tablet (10 mg total) by mouth nightly as needed for sleep Active aspirin 81 mg enteric coated tabletIndicatio ns:myocardial infarction prevention Take 1 tablet (81 mg total) by mouth daily 30 tablet 11 4 Active losartan (COZAAR) 25 mg tablet Take 1 tablet (25 mg total) by mouth daily 4 Active sertraline (ZOLOFT) 100 mg tablet Take 2 tablets (200 mg total) by mouth nightly Active cholecalciferol 25 mcg (1,000 unit) tablet Take 1 tablet (1,000 Units total) by mouth daily Active biotin 1 mg capsule Take by mouth daily Active UNABLE TO FIND daily Med Name: EB-NB Active docusate sodium (COLACE) 100 mg capsuleIndicati ons:constipatio n Take 1 capsule (100 mg total) by mouth 2 (two) times a day for 14 days 28 capsule 5 Active Active Problems Problem Noted Date Diagnosed Date Family history of colon canc er requiring screening colonoscopy 08/20/2024 Diarrhea 08/20/2024 S/P Mychal fundoplication (w [facility] gastrostomy tube) procedure 04/14/2024 Assessment & Plan (08/20/2024 2:53 PM CDT): Her repair was in March and she has had excellent clinical benefit as it pertains to her pulmonary status She denies significant dyspnea on exertion, she feels as if she can expand her lungs, she feels as if her activity tolerance is improved. In addition she has come off of her PPI dose and does not experience heartburn symptoms Follow with surgery as appropriate. 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 Hubbard I will check pulmonary function testing and high-resolution CT to exclude other pulmonary comorbidities We have requested the CT imaging on disc from [facility] hospitalization in April Pleural effusion 06/26/2023 Assessment & Plan (01/29/2024 1:41 PM MEDICAL FACILITIES SECTION DIRECTOR): This is resolved Assessment & Plan (07/30/2023 9:59 PM CDT): Significantly improved per last imaging We will follow this to resolution If this were to recur and require thoracentesis recommend repeat pleural fluid studies Assessment & Plan (06/26/2023 2:58 PM CDT): With thoracentesis in April 2023 I do not have all the pleural fluid studies Hospital discharge summary as shown to me by her reports normal PH Pneumonia of both lungs due to infectious organism, unspecified part of lung 03/31/2023 Spinal stenosis of lumbar re gion with neurogenic claudication 04/24/2022 Closed fracture of nasal bones 04/12/2021 Assessment & Plan (04/12/2021 11:31 AM MEDICAL FACILITIES SECTION DIRECTOR): Avoid nose blowing for 2 weeks Nasal saline spray (Simply saline, Little Remedies, [place], [place]) 2 second sprays or 2 squeezes into each nostril while looking down over the sink, sniff in and spit out as needed Avoid contact sports for 6 weeks Sensorineural hearing loss (SNHL) of both ears 0 04/12/2021 Assessment & Plan (09/02/2024 3:22 PM CDT): Hearing test: normal to moderate SNHL symmetric, consider hearing aids and cancel out ringing sound Assessment & Plan (04/12/2021 11:31 AM MEDICAL FACILITIES SECTION DIRECTOR): Hearing test - [facility] Age-related osteoporosis wit hout current pathological fracture 08/23/2020 Family hx of colon cancer 06/22/2020 Overview (06/22/2020): Added automatically from request for surgery [id number] Arthralgia of right lower leg 08/08/2018 Neuropathy 08/08/2018 Weakness of both legs 08/08/2018 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 With discoloration, concerning for an infectious process. Chronic pain of both shoulders 01/09/2017 Assessment & Plan (04/10/2017 10:25 AM MEDICAL FACILITIES SECTION DIRECTOR): Ordered Pt. Discussed seeing pain management but patient defers at this time. Assessment & Plan (01/09/2017 12:23 PM MEDICAL FACILITIES SECTION DIRECTOR): TTP of the a/c joint. Suspect mostly Oa. Encourage to undergo PT to improve ROM and help with pain. Neck pain 01/09/2017 Assessment & Plan (04/10/2017 10:25 AM MEDICAL FACILITIES SECTION DIRECTOR): Ordered PT. Assessment & Plan (01/09/2017 12:23 PM MEDICAL FACILITIES SECTION DIRECTOR): PT ordered. Probable degenerative arthritis. Fibromyalgia 01/09/2017 Assessment & Plan (10/14/2017 11:31 AM CDT): Multiple tender points on exam. Complaining of worsening right rib pain. She feels that she injured that area while cleaning. Will get an xray of the ribs to further evaluate. Assessment & Plan (07/16/2017 12:02 PM CDT): Patient with more complaints of shoulder, neck and lower back pain. Her feet are bothersome as well. Suggested seeing pain management. She has tried lyrica in the past but it made her feel hangover and had trouble with concentrating. She is on zoloft so would avoid cymbalta. Could consider savella. penitentiary use of drug 08/29/2016 Assessment & Plan (10/14/2017 11:31 AM CDT): Will continue to monitor the patient with routine labs. Quant gold negative 04/14. Hepatitis b/c negative 05/11. Assessment & Plan (09/17/2017 8:51 AM CDT): Will continue to monitor the patient with routine labs. Quant gold negative 04/14. Hepatitis b/c negative 05/11. Assessment & Plan (07/16/2017 12:04 PM CDT): Will continue to monitor the patient with routine labs. Quant gold negative 04/14. Hepatitis b/c negative 05/11. Assessment & Plan (04/10/2017 10:25 AM MEDICAL FACILITIES SECTION DIRECTOR): Will continue to monitor the patient with routine labs. Assessment & Plan (01/09/2017 12:23 PM MEDICAL FACILITIES SECTION DIRECTOR): Will continue to monitor the patient with routine labs. Assessment & Plan (10/10/2016 11:00 AM CDT): Will continue to monitor the patient with routine labs. Assessment & Plan (08/29/2016 4:43 PM CDT): Will continue to monitor the patient with routine labs. Gait disorder 08/29/2016 Assessment & Plan (10/10/2016 11:00 AM CDT): Doing better with pt. Assessment & Plan (08/29/2016 4:43 PM CDT): Will order more PT for this patient. Frequent falls 08/29/2016 Assessment & Plan (08/29/2016 4:44 PM CDT): Patient states that she has fallen 6 times in the past year. Advised her to f/u with PMD for further evaluation. Bilateral edema of lower extremity 08/29/2016 Assessment & Plan (08/29/2016 4:45 PM CDT): Ankles, midfoot and MTPs are not swollen. 1+pitting edema in the bilateral lower extremities on exam. Suspect fluid retention and not swelling from her Ra. Advised to restrict salt in her diet, elevate legs when seated and wear compression stockings. She is very tender in her calves, but is also very tender on multiple trigger points throughout her body. Essential hypertension 08/29/2016 Assessment & Plan (08/29/2016 4:47 PM CDT): Elevated today. Usually is normal at her PMD. Advised to take BP at home and if this is continuously elevated she needs to f/u with PMD. Drug indicated 11/14/2011 Overview (06/01/2016): LONG-TERM USE MEDS NEC Rheumatoid arthritis of [facility] sites with negative rheumatoid factor 05/01/2010 Overview (06/01/2016): RHEUMATOID ARTHRITIS Assessment & Plan (08/20/2024 2:54 PM CDT): Continue azathioprine 100 mg daily as ordered Her high-resolution CT in 6 months from prior did not demonstrate any interstitial lung disease. We have had an extensive discussion about the progression have autoimmune disease and the potential for fibrotic changes in the lungs. She will continue to follow closely with Rheumatology to manage symptoms. In the interval I will repeat a high-resolution CT and pulmonary function test this fall to assess for stability Assessment & Plan (01/29/2024 1:42 PM MEDICAL FACILITIES SECTION DIRECTOR): She continues to follow with Rheumatology Continue azathioprine as ordered High-resolution CT in 6 months from prior does not demonstrate any interstitial lung disease. Assessment & Plan (07/30/2023 9:57 PM CDT): She has followed with Rheumatology I personally spoke to her nurse practitioner and she has been started on new medication Continue azathioprine as ordered We will follow with high-resolution CT in 6 months from prior Assessment & Plan (06/26/2023 2:53 PM CDT): She follows with Dr. Mills. Tried and failed Humira, Enbrel, Orencia and xeljanz. She has an appointment next week to discuss medication management High-resolution CT as above to rule out autoimmune associated pulmonary fibrosis Assessment & Plan (10/14/2017 11:29 AM CDT): Patient disease activity is moderate. Patient has tried and failed Humira, Enbrel, Orencia and xeljanz. Discussed Olumiant. Patient denies a hx of blood clots or renal impairment. Patient is to continue HCQ and ARAVA. Will work on approval of Olumiant. Will check routine labs at the next OV. No signs of symptoms of cellulitis on today's exam. Patient seen with Dr. Mills. Assessment & Plan (09/17/2017 8:50 AM CDT): Patient disease activity is moderate. Patient is to continue HCQ, ARAVA and Orencia. With discoloration of the left index finger and thumb along with swelling will get a MRI of the left hand to further evaluate for a cellulitis vs. RA. Will check routine labs today. Patient seen with Dr. Mills. Assessment & Plan (07/16/2017 12:04 PM CDT): Patient disease activity is moderate. Her main complaints are not of her hand/wrist pain/stiffness. Patient is to HCQ, ARAVA and Orencia. Due to burden of disease will give patient a triamcinolone injection. Patient made aware of SE of triamcinolone injection including but not limited to HTN, increase blood glucose and osteopenia with retirement use of steroids. Will check routine labs today. Pennsaid sent to the specialty pharmacy. Patient seen with Dr. Mills. Assessment & Plan (04/10/2017 10:23 AM MEDICAL FACILITIES SECTION DIRECTOR): Patient disease activity is low-moderate. Most recent u/s with mild synoviial thickening/effusion with power doppler (02/2017). Patient is to continue HCQ, ARAVA and orencia. Will check routine labs today. Assessment & Plan (01/09/2017 10:32 AM MEDICAL FACILITIES SECTION DIRECTOR): Patient disease activity is moderate. Complains more of pain in her shoulders and neck. Patient is to HCQ, ARAVA and Orencia. Will check routine labs today. Assessment & Plan (10/10/2016 10:59 AM CDT): Patient today feels better. Steroid injection did help her joint pain. She has low-moderate disease activity on CDAI but u/s findings with mild synovitis and mild power doppler. Will therefore continue Orencia, HCQ and ARAVA since u/s findings are suggestive of low disease activity. Assessment & Plan (08/29/2016 4:51 PM CDT): Patient with moderate disease activity on CDAI (12). Minimal swelling in her ankles, midfoot and MTPs. Some swelling in her Mcps. Patient states that she is currently flaring. Does not feel that the orencia has helped at all thus far. Has onycholysis on exam as well that has started since starting the orencia. Will get u/s to further evaluate disease activity. If worse will consider going back to a TNF. For now patient is to continue ARAVA, orencia and HCQ. Will repeat labs at the next OV in september. Due to burden of disease will have patient get steroid injection after U/s. Resolved Problems Problem Noted Date Diagnosed Date Resolved Date Paraesophageal hernia 02/27/20242024 Gastroesophageal reflux dise ase without esophagitis 06/26/2023 08/20/2024 Assessment & Plan (07/30/2023 9:58 PM CDT): Continue omeprazole 20 mg twice daily She is generally well-controlled with rare symptoms Elevate head of bed while sleeping Avoid trigger foods Assessment & Plan (06/26/2023 2:55 PM CDT): Continue omeprazole daily Avoid eating 2 hours before bed Avoid trigger foods Stay upright after eating meals for at least 30 minute Elevate head of bed while sleeping Hiatal hernia 06/26/2023 04/21/2024 Assessment & Plan (02/06/2024 11:55 AM MEDICAL FACILITIES SECTION DIRECTOR): Given the progressive worsening with both regards to the dysphagia, shortness of breath and limited food intake she would like to pursue correcting the hernia. This will be a major undertaking for the patient. She will need to obtain cardiac and pulmonary clearance in preparation. It also sounds like she may have had an SC in October early November. We will have to wait at least 3 months if not longer pending on what Cardiology sees prior to proceeding with surgery. We have discussed hospital length of stay with the patient. We have discussed postoperative issues such as prolonged ventilatory needs, SC or cardiac arrhythmia. We have discussed the need for postoperative diet for several weeks after surgery as well as for 1 week leading up to surgery. Until the do smaller frequent meals. We have recommended chewing appropriately and counting to 30 before swallowing. Separate liquids from solids when eating. We will order an esophagram to evaluate for any signs of dysmotility. Once again we have obtain clearance and imaging we will set her up for repair. Assessment & Plan (01/29/2024 1:40 PM MEDICAL FACILITIES SECTION DIRECTOR): I believe this is the contributing factor to restriction on pulmonary function testing and her dyspnea I continue to believe this is causing her symptoms of chest fullness We have discussed fundoplication and I have placed a referral for surgical evaluation today Assessment & Plan (07/30/2023 10:00 PM CDT): I believe this is the contributing factor to restriction on pulmonary function testing as opposed to interstitial lung disease I also believe this is causing her symptoms of chest fullness We have discussed fundoplication and I have recommended she follow-up with primary care for further assessment and referral Assessment & Plan (06/26/2023 2:54 PM CDT): Last CT revealed the hernia sac contained the entire stomach as well as some of the omental fat and bowel We have discussed that this may be a contributor to dyspnea I am unsure if she qualifies for surgical intervention and she is unsure if this is something she would want to pursue Recurrent abdominal pain 04/24/2022 Assessment & Plan (04/24/2022 3:14 PM MEDICAL FACILITIES SECTION DIRECTOR): Continue fiber supplement and bentyl Return pprn Dysphagia 06/22/2020 08/20/2024 Overview (06/22/2020): Added automatically from request for surgery [id number] Fibrositis 07/11/2013 01/09/2017 Overview (06/02/2016): Fibromyalgia Inflammatory polyarthropathy 03/29/2009 08/29/2016 Overview (06/01/2016): INFLAMM POLYARTHROP NOS Encounters Date Type Department Care Team Description 12/11/2024 Telephone [facility] Pulmonary at [address] [place] [address] Anette Bowles, 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 AND SERVICE 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 from Last 3 Months Immunizations Immunization Administration Dates Next Due Influenza, Split 11/29/2010,12/14/2009 Influenza, Trivalent, IM (MDV) 12/09/2007 Influenza, Unspecified 03/07/2023 Surgical History Surgery Date Site/Laterality Comments OTHER SURGICAL HISTORY 02/25/2009 - 02/24/2010 Injured rotator cuff RT shoudler: Cortisone injection RT shoulder OTHER SURGICAL HISTORY interstin implant pelvic floor OTHER SURGICAL HISTORY Right hammertoe surgery CATARACT EXTRACTION Bilateral Cataract extraction COLONOSCOPY 12/01/2013 REVERSE TOTAL SHOULDER ARTHROPLASTY Right REVISION TOTAL SHOULDER ARTHROPLASTY Medical History Medical History Date Comments Gastroesophageal reflux disease GERD Depression Depression Hx Other Medical Injured rotator cuff RT shoudler; Outcome: improving Hypertension Hypertension Hyperlipidemia Hyperlipidemia Fibrositis Fibromyalgia Rheumatoid arthritis (HCC) Rheum atoid arthritis Osteoarthritis Osteoarthritis Hx Other Medical fibromyalgia Anxiety Gastric reflux Heart valve disease Hiatal hernia Peripheral neuropathy Gastroesophageal reflux dise ase without esophagitis 06/26/2023 Pleural effusion 06/26/2023 Coronary artery disease Paraesophageal hernia 02/27/2024 Recurrent abdominal pain 04/24/2022 Dysphagia 06/22/2020 Added automatica lly from request for surgery [id number] Family History Medical History Relation Name Comments Depression Father Depression; Hyperlipidemia Father Hyperlipidemi a; Colon cancer Mother Diabetes type II Mother Diabetes -T ype II; Osteoarthritis Mother Osteoarthriti s; Colon cancer Mother's Sister Cancer Other 1 Family history of Cancer; Diabetes Other 2 Family history of Diabetes mellitus; Thyroid disease Other 3 Family histo ry of Thyroid disorder; Diabetes type II Other 4 Family hist ory of Diabetes mellitus type 2; Relation Name Status Comments Father Mother Mother's Sister Other 1 Other 2 Other 3 Other 4 Social History Tobacco Use Types Packs/Day Years Used Date Smoking Tobacco: Never Smokeless Tobacco: Never Tobacco Cessation:Counseling Given: Not Answered Alcohol Use Standard Drinks/Week Comments No 0 (1 standard drink = 0.6 oz pur e alcohol) [facility] Utilities Answer Date Recorded In the past 12 months has th e electric, gas, oil, or water company threatened to shut off services in your home? No 04/14/2024 Social Connection and Isolation Panel Answer Date Recorded In a typical week, how many times do you talk on the phone with family, friends, or neighbors? Three times a week 04/01/2023 How often do you get togethe r with friends or relatives? Three times a week 04/01/2023 How often do you attend chur ch or jehovah's witness services? Never 04/01/2023 Do you belong to any clubs o r organizations such as scientology groups, unions, fraternal or athletic groups, or school groups? No 04/01/2023 How often do you attend meet ings of the clubs or organizations you belong to? Never 04/01/2023 Are you , , di vorced, , never , or living with a partner? 04/01/2023 AUDIT-C Answer Date Recorded Q1: How often do you have a drink containing alcohol? Never 04/13/2024 Q2: How many drinks containi ng alcohol do you have on a typical day when you are drinking? Patient does not drink Frequency of Binge Drinking Not on file 03/28 Overall Financial Resource Strain (CARDIA) Answe r Date Recorded How hard is it for you to pa y for the very basics like food, housing, medical care, and heating? Somewhat hard 04/14/2024 PHQ-2 Answer Date Recorded PHQ-2 Total Score (If total score is 3 or more points, staff should administer the PHQ-9) 0 11/24/2023 Hunger Vital Sign Answer Date Recorded Within the past 12 months, y ou worried that your food would run out before you got the money to buy more. Never true 04/01/19 24 Within the past 12 months, t he food you bought just didn't last and you didn't have money to get more. Never true 04/01/2023 PRAPARE - Transportation Answer Date Re corded In the past 12 months, has l ack of transportation kept you from medical appointments or from getting medications? No 03/28 In the past 12 months, has l ack of transportation kept you from meetings, work, or from getting things needed for daily living? No 04/14/2024 Housing Stability Vital Sign Answer Genaro e Recorded In the last 12 months, was t here a time when you were not able to pay the mortgage or rent on time? No 04/01/2023 In the last 12 months, how many places have you lived? 1 04/01/2023 In the last 12 months, was t here a time when you did not have a steady place to sleep or slept in a long term (including now)? No 04/01/2023 Personal Safety Answer Date Recorded Have you ever been in or are you currently in a harmful physical or emotional relationship or is someone making you feel afraid or unsafe? Denies 04/13/2024 Education Answer Date Recorded What is the highest level of school you have completed or the highest degree you have received? Some college, no degree 04/01/2023 Comments No Sex and Gender Information Value Date Recorded Sex Assigned at Not on file Legal Sex Female 11:45 AM MEDICAL FACILITIES SECTION DIRECTOR Gender Identity Not on file Sexual Orientation Not on file Last Filed Vital Signs Vital Sign Reading Time Taken Comments Blood Pressure 126/60 08/20/2024 9:55 AM CDT Pulse 62 08/20/2024 9:55 AM CDT Temperature 36.3 C (97.3 F) 08/20/2024 9:55 AM CDT Respiratory Rate 16 06/01/2024 10:48 AM CDT Oxygen Saturation 99% 08/20/2024 9:55 AM CDT Inhaled Oxygen Concentration - - Weight 51.7 kg (114 lb) 09/02/2024 1:23 PM CDT Height 152.4 cm (5') 09/02/2024 1:23 PM CDT Body Mass Index 22.26 09/02/2024 1:23 PM CDT Plan of Treatment Upcoming Encounters Date Type Department Care Team (Late st Contact Info) Description 01/11/2025 1:00 PM MEDICAL FACILITIES SECTION DIRECTOR Hospital Encounter [facility] [address] [place] [address] Reinier Good, [address] [place] [address] 01/11/2025 1:00 PM MEDICAL FACILITIES SECTION DIRECTOR - 01/11/2025 1:30 PM MEDICAL FACILITIES SECTION DIRECTOR Surgery [facility] [address] [place] [address] Reinier Good, [address] [place] [address] COLONOSCOPY Scheduled Procedures Name Priority Associated Diagnoses Date/Ti me COLONOSCOPY Family history of colon cancer requiring screening colonoscopy Diarrhea, unspecified type 01/11/2025 1:00 PM MEDICAL FACILITIES SECTION DIRECTOR Health Maintenance Due Date Last Done Comments Hepatitis B Screening 04/29/1971 Zoster Vaccine (1 of 2) 04/29/2003 Pneumococcal vaccine 65+ (2 of 2 - PCV20 or PCV21) 11/23/2017 11/23/2016 Well Visit 65+ 2018 Breast Cancer Screening-Mammogram 10/18/2022 10/18/2021, 08/09/2020, 06/06/2019 Osteoporosis Screening-Bone Density Scan 07/09/2024 07/09/2022, 05/24/2020, 05/24/2020 Influenza Vaccine (#1) 2024 , 03/07/2023, 11/23/2016, Additional history exists Depression Screening 11/22/2024 11/23/2023 Fall Risk Assessment 04/15/2025 04/15/2024 DTaP/Tdap/Td Vaccine (2 - Td or Tdap) 01/26/2028 01/25/2018 Colon Cancer Screening-Colonoscopy 07/26/2030 07/26/2020, 12/01/2013, 12/01/2013 Hepatitis C Screening Completed 05/09/2016 Colon Cancer Screening-CT Colonography Discontinued 07/26/2020, 12/01/2013, 12/01/2013 Colon Cancer Screening-DNA Stool Discontinued 07/26/2020, 12/01/2013, 12/01/2013 Colon Cancer Screening-FIT Discontinued 07/26, 12/01/2013, 12/01/2013 Colon Cancer Screening-Sigmoidoscopy Discontinued 07/26/2020, 12/01/2013, 12/01/2013 Procedures Procedure Name Priority Date/Time Associated Diagnosis Comments DEXA AXIAL SKELETON BONE DENSITY 1 OR MORE SITES Schedule Routine, Read Routine (OP Routine) 07/09/2022 1:34 PM CDT Age-related osteoporosis without current pathological fracture COLONOSCOPY 07/26/2020 8:18 AM CDT HEPATITIS C ANTIBODY Routine 05/09/2016 11:29 AM CDT from Last 3 Months or Most Recently Relevant to Health Maintenance Results * Dexa Axial Skeleton Bone Density 1 or 2 Site (07/09/2022 1:34 PM CDT) Anatomical Region Laterality Modality Body N/A Other 07/09/2022 9:12 PM CDT Narrative 07/09/2022 9:13 PM CDT EXAM DESCRIPTION: DEXA AXIAL SKELETON BONE DENSITY 1 OR MORE SITES REASON FOR STUDY: 67 y/o year old F with given history of screening. Postmenopausal Dedenter/Model: [employer] (S/N [id number]) CLINICAL INFORMATION: Current height: 58 inches Maximum height: 61.5 inches Weight: 135 pounds Risk factors: Postmenopausal, adult fracture, rheumatoid arthritis COMPARISON: None available FINDINGS: AP LUMBAR SPINE L1-L4: Total BMD is 1.048 g/cm2 T-score is -0.3 LEFT HIP: Total BMD is 0.597 g/cm2 T-score is -2.8 Femoral neck BMD is 0.539 g/cm2 T-score is -2.8 FRAX: FRAX not reported due to T-scores of hip, femoral neck and/or spine being at or below -2.5 (Osteoporosis). IMPRESSION: Osteoporosis. REFERENCE: Bone mineral density: Normal (T-score above or = -1.0) Low bone mass (T-score between -1.0 and -2.5) replaces the previously used term osteopenia Osteoporosis (T-score = or below -2.5) Medical evaluation for secondary causes of low bone mineral density may be appropriate. FRAX is a World Health Organization validated fracture risk assessment tool that calculates a person's 10 year probability of a major osteoporosis related fracture and hip fracture. According to the National Osteoporosis Foundation guidelines, postmenopausal women and men age 50 or older with low bone mass and a 10 year probability of a major osteoporosis related fracture = or greater than 20% or a 10 year probability of a hip fracture = or greater than 3% should be considered for treatment. For further information, including treatment recommendations, please refer to the 2019 ISCD Official Positions (http://www.iscd.org) and the NOF's Clinician's Guide to Prevention and Treatment of Osteoporosis (http://www.nof.org/professionals/clinical-guidelines) THIS IS AN ELECTRONICALLY VERIFIED FINAL REPORT 07/09/2022 9:13 PM - Electronically signed by Gavin Eller M.D. MF: BASILIA Report ID: [id number] Reading Location: [address] Note Gavin Eller MD - 07/09/2022 EXAM DESCRIPTION: DEXA AXIAL SKELETON BONE DENSITY 1 OR MORE SITES REASON FOR STUDY: 67 y/o year old F with given history of screening. Postmenopausal Dedenter/Model: [employer] SL (S/N [id number]) CLINICAL INFORMATION: Current height: 58 inches Maximum height: 61.5 inches Weight: 135 pounds Risk factors: Postmenopausal, adult fracture, rheumatoid arthritis COMPARISON: None available FINDINGS: AP LUMBAR SPINE L1-L4: Total BMD is 1.048 g/cm2 T-score is -0.3 LEFT HIP: Total BMD is 0.597 g/cm2 T-score is -2.8 Femoral neck BMD is 0.539 g/cm2 T-score is -2.8 FRAX: FRAX not reported due to T-scores of hip, femoral neck and/or spine beingat or below -2.5 (Osteoporosis). IMPRESSION: Osteoporosis. REFERENCE: Bone mineral density: Normal (T-score above or = -1.0) Low bone mass (T-score between -1.0 and -2.5) replaces thepreviously used term osteopenia Osteoporosis (T-score = or below -2.5) Medical evaluation for secondary causes of low bone mineral density may be appropriate. FRAX is a World Health Organization validated fracture risk assessmenttool that calculates a person's 10 year probability of a major osteoporosisrelated fracture and hip fracture. According to the National OsteoporosisFoundation guidelines, postmenopausal women and men age 50 or older with low bonemass and a 10 year probability of a major osteoporosis related fracture = or greater than 20% or a 10 year probability of a hip fracture = or greaterthan 3% should be considered for treatment. For further information, including treatment recommendations, please referto the 2019 ISCD Official Positions (http://www.iscd.org) and the NOF's Clinician's Guide to Prevention and Treatment of Osteoporosis (http://www.nof.org/professionals/clinical-guidelines) THIS IS AN ELECTRONICALLY VERIFIED FINAL REPORT 07/09/2022 9:13 PM - Electronically signed by Gavin Eller M.D. MF: BASILIA Report ID: [id number] Reading Location: [place] [address] Yogi Max MD IM DXA PROCEDURES Final Result * COLONOSCOPY (07/26/2020 8:18 AM CDT) Anatomical Region Laterality Modality Other Narrative Procedure Note Bryan Newton MD - 07/26/2020 8:18 AM CDT [facility] Patient Name: Prabha Navarro Procedure Date: 07/26/2020 8:18 AM Date of : 1955 Admit Type: Outpatient Age: 65 Gender: Female Attending MD: Bryan Newton M.D. Room: [facility] ENDOSCOPY ROOM 2 Note Status: Finalized Patient Profile: Refer to note in patient chart for documentation of history and physical. Procedure: Colonoscopy Indications: Screening for colorectal malignant neoplasm, Last colonoscopy: November 2013 Referring MD: Yogi Max M.D. Providers: Bryan Newton M.D. Impression: - Hemorrhoids found on perianal exam. - Diverticulosis in the sigmoid colon. - The examination was otherwise normal. - No specimens collected. Recommendation: - Discharge patient to home. - Resume previous diet. - Continue present medications. - Repeat colonoscopy in 10 years for screening purposes. - Return to primary care physician as previously scheduled. Medicines: Propofol per Anesthesia Complications: No immediate complications. Estimated Blood Loss: Estimated blood loss: none. Procedure: Pre-Anesthesia Assessment: - This assessment was completed [Time ofAssessment] prior to the administration of sedation. The benefits, risks and alternatives of theprocedure and sedation were discussed and informed consentwas obtained. All questions were answered. Please referto the signed informed consent document in the medical record. The bowel preparation used was Miralax via split dose instruction. The bowel preparation usedwas bisacodyl tablets via split dose instruction. Bowel prep was administered using a split dose. The scope was passed under direct vision. The Colonoscope [id number] was introduced through the anus and advanced to the the cecum, identified by appendiceal orifice and ileocecal valve. The colonoscopy was performed without difficulty. The patient tolerated the procedure well. The qualityof the bowel preparation was adequate to identifypolyps 6 mm and larger in size. Findings: Hemorrhoids were found on perianal exam. Multiple small and large-mouthed diverticula were found in thesigmoid colon. The exam was otherwise without abnormality. Electronically signed by Bryan Newton M.D. Bryan Newton M.D. 07/26/2020 9:44:49 AM Number of Addenda: 0 Note Initiated On: 07/26/2020 8:18 AM Procedure Code(s): --- Professional --- 77536, Colonoscopy, flexible; diagnostic, including collection of specimen(s) by brushing or washing, when performed (separateprocedure) Diagnosis Code(s): --- Professional --- K57.30, Diverticulosis of large intestine without perforation orabscess without bleeding K64.9, Unspecified hemorrhoids Z12.11, Encounter for screening for malignant neoplasm of colon CPT copyright 2019 [place] [employer]. All rights reserved. The codes documented in this report are preliminary and upon installation and service technician reviewmay be revised to meet current compliance requirements. Recognized by the [place] [employer] for promoting quality in endoscopy us Bryan Newton MD ENDOSCOPY PROCEDURES Final Re sult * Hepatitis C antibody (05/09/2016 11:29 AM CDT) SIGNAL TO CUT-OFF 0.00 <1.00 [facility]ISTORICAL RESULTS Comment: REPORT COMMENT: FASTING:NO Test performed at [facility] [address] [place] [address] Director: BARNEY COOK DO,MPH Hep C Ab NON-REACT MELVI NON-REACT MELVI [facility]ISTORICAL RESULTS 05/09/2016 11:2 9 AM CDT [facility] MICROBIOLOGY - GENERAL ORDERABLES Final Result [facility]ISTORICAL RESULTS from Last 3 Months or Most Recently Relevant to Health Maintenance Insurance [facility] [place] [address] MEDICARE COMMERCIAL GENERIC MEDICARE COMMERCIAL GENERIC MEDICARE COMMERCIAL GENERIC Advance Directives For more information, please contact: [phone] * Full Code (Latest Code Status on File) Date Activated Date Inactivated Comments 04/13/2024 12:38 PM 04/15/2024 4:54 PM * Full Code Date Activated Date Inactivated Comments 11/24/2023 5:35 AM 11/26/2023 3:59 PM * Full Code Date Activated Date Inactivated Comments 11/24/2023 2:37 AM 11/24/2023 5:35 AM * Full Code Date Activated Date Inactivated Comments 03/31/2023 5:40 PM 04/23/2023 6:45 PM * Full Code Date Activated Date Inactivated Comments 07/26/2020 8:39 AM 07/26/2020 2:35 PM Care Teams Transformer Assembly Supervisor Relationship Specialty [place] [address] [facility] [address] [place] [address] PCP - General 05/25/16 [place] [address] [facility] [address] [place] [address] Rheumatology 09/13/16 [place] [address] [facility] [address] [place] [address] Surgeon Orthopedic Surgery 04/17/17
--- OUTSIDE RECORDS SUMMARY | 2025-01-01 11:08 | XMS_ITS | Encounter Summary ---
Author Organization [facility] Healthcare Address [address] [place] [address] Care Team Providers Care Rn Acute Care Name Role Phone Yogi Max MD Primary Care Provider + Rachel Mills MD Unavailable Robbie Cordova MD Unavailable [phone] Encounter Details Date Type Department Care Team (Late Contact Info) Description 03/02/2022 [facility] [address] [place] [address] [place] [address] [facility] [address] [place] [address] Left-sided chest wall pain (Primary Dx) Social History Tobacco Use Types Packs/Day Years Used Date Smoking Tobacco: Never Smokeless Tobacco: Never Alcohol Use Standard Drinks/Week Comments No 0 (1 standard drink = 0.6 oz pur e alcohol) AUDIT-C Answer Date Recorded Q1: How often do you have a drink containing alc ohol? 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 Gender Identity Not on file Sexual Orientation Not on file documented as of this encounter Plan of Treatment Upcoming Encounters Date Type Department Care Team (Late st Contact Info) Description 01/11/2025 1:00 PM PRODUCTION UTILITY WORKER Hospital Encounter [facility] [address] [place] [address] Reinier Good, [address] [facility] [place] [address] 01/11/2025 1:00 PM PRODUCTION UTILITY WORKER - 01/11/2025 1:30 PM PRODUCTION UTILITY WORKER Surgery [facility] [address] [place] [address] Reinier Good, [address] [facility] [place] [address] COLONOSCOPY Scheduled Procedures Name Priority Associated Diagnoses Date/Ti me COLONOSCOPY Family history of colon cancer requiring screening colonoscopy Diarrhea, unspecified type 01/11/2025 1:00 PM PRODUCTION UTILITY WORKER documented as of this encounter Visit Diagnoses Diagnosis Left-sided chest wall pain- Primary Painful respiration Family history of colon cancer requiring screening colonoscopy Diarrhea, unspecified type documented in this encounter Additional Health Concerns Infection Onset Date Last Indicated Resolved Time COVID: Suspected 03/31/2023 03/31/2023 03/31/2023 4:09 PM PRODUCTION UTILITY WORKER COVID: Suspected 04/05/2023 04/05/2023 04/05/2023 12:10 PM PRODUCTION UTILITY WORKER Diarrhea 04/18/2023 04/18/2023 04/18/2023 10:5 0 AM PRODUCTION UTILITY WORKER documented as of this encounter Care Teams Rn Acute Care Relationship Specialty [place] [address] [facility] [address] [place] [address] PCP - General 05/25/16 [place] [address] [facility] [address] [place] [address] Rheumatology 09/13/16 [place] [address] [facility] [address] [place] [address] Surgeon Orthopedic Surgery 04/17/17 documented as of this encounter
--- OUTSIDE RECORDS SUMMARY | 2025-01-01 11:08 | XMS_ITS | Patient Health Record ---
Author Organization [facility] Address [address] [place], [place] [id number] Care Team Providers Care Antenna Design Engineer Name Role Phone Stormy Stein Unavailable [phone] Allergies No Known Allergies Reason For Referral No Information Medications Medication SIG (Take, Route, Frequency, Duration) Notes Start Date End Date Status Omeprazole 20 MG 1 capsule 1/2 to 1 h our before morning meal Orally Once a day Active Losartan Potassium 25 MG 1 tablet Orally Once a day Active Ferrous Sulfate 325 (65 Fe) MG 1 tablet Orally Three times a Week Active hydrOXYzine HCl 10 MG 1 tablet as needed Orally Once a day Active Carvedilol 12.5 MG 1 tablet with food O rally Twice a day Active Sertraline HCl 100 MG 1 tablet Orally On ce a day Active predniSONE 5 MG 1 tablet with food o r milk Orally Once a day Active Zolpidem Tartrate 10 MG 1 tablet at bedt severo as needed Orally Once a day Active Potassium Chloride ER 10 MEQ 1 tablet with food Orally Twice a day Active Rosuvastatin Calcium 10 MG 1 tablet Oral ly Once a day Active ZyrTEC 10 MG 1 tablet Orally Once a day Active Diclofenac Active Alendronate Sodium 70 MG 1 tablet 30 min utes before the first food, beverage or medicine of the day with plain water Orally Active Flonase Allergy Relief 50 MCG/ACT 1 spray in each nostril Nasally Twice a day Active busPIRone HCl 15 MG 1 tablet Orally Twic e a day Active Osphena 60 MG 1 tablet with food O rally Once a day Active Social History Tobacco Use: Social History Observation Description Date Details (start date - stop date) Never Smoker NA - NA Sex Assigned At : Social History Observation Description Sex Assigned At Unknown Tobacco Control (Standard) Question Answer Notes Tobacco use: Nonsmoker Problems Problem Type SNOMED Code ICD Code Onset Dates Problem Status W/U Status Risk Notes Problem Fibromyalgia (391436274) Fibromyalgia (M79.7) Active confirmed Problem Diverticular disease of colon (449791949) Diverticulosis (K57.90) Active confirmed Problem Rheumatoid arthritis (85081161) Rheumatoid arthritis, involving unspecified site, unspecified whether rheumatoid factor present (M06.9) Active confirmed Problem Pneumonia (159166262) Pneumonia (J18.9) Active confirmed Problem 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) ILD (interstitial lung disease) (J84.9) Active confirmed Problem Fatigue (61902250) Fatigue (R53.83) Active conf irmed Problem Dry eyes (861886425) Dry eyes (H04.129) Active confirmed Problem Hiatal hernia (52116245) Hiatal hernia (K44.9) Active confirmed Problem Irritable bowel syndrome (35111479) IBS (irritable bowel syndrome) (K58.9) Active confirmed Problem Anemia (682814617) Anemia (D64.9) Active confir med Problem Myocardial infarction (88483170) OK (myocardial infarction) (I21.3) Active confirmed Problem Osteoarthritis (146834802) OA (osteoarthritis) (M19.90) Active confirmed Problem Rheumatoid arthritis (52749877) Rheumatoid arthritis (M06.9) Active confirmed Problem Red blood cell disorder (22901224) Red blood cell disorder (D75.89) Active confirmed Problem Osteoporosis (24105198) Osteoporosis (M81.0) Active confirmed Vital Signs Height-cm 152.4 cm 05/14/2024 Weight-kg 52.16 kg 05/14/2024 Height 60 in 05/14/2024 Weight 115 lbs 05/14/2024 BMI 22.46 kg/m2 05/14/2024 Encounters Encounter Location Date Provider Diagnosis [address] [place], [place] [id number] 05/14/2024 Stormy Espurvoa Rheumatoid arthritis, involving unspecified site, unspecified whether rheumatoid factor present M06.9 ; Other intermodal customer service (current) drug therapy Z79.899 and Routine health maintenance Z00.00 Assessments Encounter Date Diagnosis (ICD Code) Assessment Notes Treatment Notes Treatment Clinical Notes Section Notes 05/14/2024 Rheumatoid arthritis, involving unspecified site, unspecified whether rheumatoid factor present (ICD-10 - M06.9) Ms. Pienda is a 69 year-old female with rheumatoid arthritis, currently managed by Dr. Mills. At this time, patient will begin Actemra. Patient will be monitored fci for symptom control and side effects. SCREENING: [...] with any concerns or infections. 05/14/2024 Other fci (current) drug therapy (ICD-10 - Z79.899) When [...] maintenance (ICD-10 - Z00.00) https://www.cdc.gov /vaccines/schedules /downloads/adult/ad qyi-tmnutoud-vyfhnv le.pdf Plan Of Treatment No Information Medical (General) History Medical History History ICD Code Rheumatoid arthritis M06.9 IBS (irritable bowel syndrome) K58.9 Osteoporosis M81.0 OA (osteoarthritis) M19.90 Fibromyalgia M79.7 Fatigue R53.83 Anemia D64.9 Diverticulosis K57.90 ILD (interstitial lung disease) J84.9 Red blood cell disorder D75.89 Dry eyes H04.129 OK (myocardial infarction) I21.3 Pneumonia J18.9 Hiatal hernia K44.9
--- OUTSIDE RECORDS SUMMARY | 2025-01-01 11:08 | XMS_ITS | Encounter Summary ---
Author Organization [facility] Address [address] [facility] [place] [address] Care Team Providers Care Outreach Liaison Name Role Phone Yogi Ortiz MD Primary Care Provider [phone] Celeste Giles MD Unavailable Reason for Visit * Reason Onset Date Comments MEDICATION REFILL 06/09/2020 Encounter Details Date Type Department Care Team (Late st Contact Info) Description 06/09/2020 Refill [facility] [address] [place] [phone] Lola Montemayor RN MEDICATION REFILL Social History Tobacco Use Types Packs/Day Years Used Date Smoking Tobacco: Never Smokeless Tobacco: Never Alcohol Use Standard Drinks/Week Comments No 0 (1 standard drink = 0.6 oz pur e alcohol) Comments Unknown Sex and Gender Information Value Date Recorded Sex Assigned at Not on file 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 No / Unsure 05/24/2020 9:21 AM CDT documented as of this encounter Functional Status * Is person deaf or have serious hearing difficulty? Answer Date of Assessment Author No 05/25/2018 12:13 PM CDT Mady Allison RN * Is person blind or have serious difficulty seeing? Answer Date of Assessment Author No 05/25/2018 12:13 PM CDT Mady Allison RN * Does person have serious difficulty walking/climbing stairs? Answer Date of Assessment Author No 05/25/2018 12:13 PM Mady Krause RN * Does person have difficulty dressing/bathing? Answer Date of Assessment Author No 05/25/2018 12:13 PM Mady Krause RN * Does person have difficulty doing errands alone? Answer Date of Assessment Author Yes 05/25/2018 12:13 PM Mady Krause RN documented as of this encounter Mental Status * Does person have difficulty concentrating/remembering/making decisions? Answer Entry Date Author No 05/25/2018 12:13 PM Mady Krause RN documented in this encounter Plan of Treatment Not on file documented as of this encounter Visit Diagnoses Not on filedocumented in this encounter Care Teams Outreach Liaison Relationship Specialty [place] [address] [phone] PCP - General Internal Medicine 08/08/15 [place] [address] [facility] [address] [place] [address] Orthopedic Surgery 05/31/20 documented as of this encounter
--- OUTSIDE RECORDS SUMMARY | 2025-01-01 11:08 | XMS_ITS | Data Portability ---
Author Organization [facility] [place] Address [address] [place] [address] Care Team Providers Care Yard Coordinator Name Role Phone BILL ESPINOZA Primary Care Provider Assessment Encounter Date Assessment Date Assessment LastModified by Organization Details LastModified Time 04/14/2020 04/14/2020 Annual gynecological exam performed. Patient will come back in a year unless there are new symptoms. [email or web address] Not available 04/13/2020 13:56:19 05/18/2021 05/18/2021 Annual gynecological exam performed. Patient will come back in a year unless there are new symptoms. Not available 05/18/2021 15:10:15 09/11/2023 09/11/2023 Annual gynecological exam performed. Patient will come back in a year unless there are new symptoms. [email or web address] Not available 09/11/2023 12:15:57 Plan of Treatment Reminders Order Date Submit Date Provider Last Modified By Organization Details Last Modified Time Details Appointments None recorded. Lab None recorded. Referral None recorded. Procedures None recorded. Surgeries None recorded. Imaging None recorded. Medication Orders Osphena 60 mg tablet 024 024 [id number], [address], [place], [id number], 13:58:16 Osphena 60 mg tablet 022 022 [place] [facility], [address] [place] [address], [facility] [address], [place], [phone], 15:21:17 Patient TargetsNo targets recorded. Patient Instructions Encounter Date Encounter Id Patient Instructions Last Modified By Organization Details Last Modified Time 04/14/2020 [id number] [email or web address] Not available 13:42:50 Reason for Referral None Reported. 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 Kayla trinidad michael d by Jose Antonio Inman ed, CT on 2021 at 3:35 PM ----- ----- ----- ----- ----- ----- ----- ----- ----- ----- ----- ----- ----- ----- ----- ----- ----- ---- HPV RESUL TS: HPV mRNA E6/E7 : No HPV mRNA Detec jaleel NOTE: This high risk HPV mRNA assay detec ts fourt een high- risk HPV types (16, 18, 31, 33, 35, 39, 45, 51, 52, 56, 58, 59, 66, 68) witho ut diffe renti ation . COMME NT: Note: This speci men was revie wed by a Cytot echno logis t and/o r Patho logis t (as indic ated in this repor t) after evalu ation using the Thinp rep Imagi ng Syste m. CLINI EDUARDO INFOR MATIO N: Menst rual Statu s: LMP (if appli cable ): Clini eduardo Histo ry/Pr eviou s Pap: Type of Neopl reyna (if appli cable ): Signi fican t Clini eduardo Findi ngs: Other Histo ry: Hormo trinity (if appli cable ): PAP EDUCA SELVIN L NOTE: The Pap Test is a scree jeb test with an inher ent false negat marco rate. Liqui d-bas ed sampl ing may decre ase, but will not elimi luther, false negat marco resul ts. A negat marco resul t does not precl ude the prese nce and/o r devel opmen t of disea se, since the prese nce of abnor mal cells in the sampl e depen ds on the locat ion of the lesio n and sampl ing techn ique. Ameena nued regul ar scree jeb is the best metho d of cance r preve ntion . If repor jaleel cytol ogic findi ng do not corre late with physi eduardo and/o r histo rical findi ngs, furth er inves tigat ion is recom kirstin d, as clini kim castle nted. Not Available [facility] (Lab) [address], [place], [address], 05/25/2021 16:37:57 09/11/19 24 09/11/2023 IMAGE GUIDE D PAP AND HPV REGAR DLESS image guided Pap, HPV regardless of Pap result SEE RESULT S BELOW CASE REPOR T: Cytol ogy Gynec ologi eduardo Repor t Case: [id number] Autho padmini g Provi brian: Rebecca Trinh MD Colle cted: 09/10 1247 Order ing Locat ion: [place] [facility] [place] Recei yara: 09/11 0139 First Scree n: Sharan Schrader , CT Rescr een: Polina Olivas ret, CT Speci men: Enedina russ Pap - Image d, Cervi x STATE MENT OF ADEQU ACY: Satis facto ry for evalu ation Trans forma tion zone compo nent absen t The absen ce of an endoc ervic al compo nent was confi rmed by an addit ional scree ner. ----- ----- ----- ----- ----- ----- ----- ----- ----- ----- ----- ----- ----- ----- ----- ----- ----- ---- FINAL DIAGN OSIS: Negat marco for Intra epith elial Lesio ash or Naresh moise ([facility]) . Elect solis rodriguez d by Polina Olivas ret, CT on 2023 at 9:01 AM ----- ----- ----- ----- ----- ----- ----- ----- ----- ----- ----- ----- ----- ----- ----- ----- ----- ---- HPV RESUL TS: HPV mRNA E6/E7 : No HPV mRNA Detec jaleel NOTE: This high risk HPV mRNA assay detec ts fourt een high- risk HPV types (16, 18, 31, 33, 35, 39, 45, 51, 52, 56, 58, 59, 66, 68) witho ut diffe renti ation . COMME NT: This speci men was revie wed by a Cytot echno logis t and/o r Patho logis t (as indic ated in this repor t) after evalu ation using the Thinp rep Imagi ng Syste m. CLINI EDUARDO INFOR MATIO N: Menst rual Statu s: LMP (if appli cable ): Clini eduardo Histo ry/Pr eviou s Pap: Type of Neopl reyna (if appli cable ): Signi fican t Clini eduardo Findi ngs: Other Histo ry: Hormo trinity (if appli cable ): PAP EDUCA SELVIN L NOTE: The Pap Test is a scree jeb test with an inher ent false negat marco rate. Liqui d-bas ed sampl ing may decre ase, but will not elimi luther, false negat marco resul ts. A negat marco resul t does not precl ude the prese nce and/o r devel opmen t of disea se, since the prese nce of abnor mal cells in the sampl e depen ds on the locat ion of the lesio n and sampl ing techn ique. Ameena nued regul ar scree jeb is the best metho d of cance r preve ntion . If repor jaleel cytol ogic findi ng do not corre late with physi eduardo and/o r histo rical findi ngs, furth er inves tigat ion is recom kirstin d, as clini k[facility] castle nted. Not Available [facility] (Lab) [address], [place], [address], 09/17/2023 10:06:08 08/10/19 21 08/09/2020 MAMMO , scree jeb, bilat eral No observ ation record ed. [email or web address] [facility] [address], [place], [address], 08/11/2020 17:21:47 10/19/19 22 10/18/2021 MAMMO , scree jeb, bilat eral No observ ation record ed. [email or web address] [facility] [address], [place], [address], 09/04/2022 11:55:53 Result Notes None recorded. Problems Name Problem SNOMED Code Status Onset Date Resolution Date Notes Provider Name and Address Organization Details Recorded Time No current problems or disabili ty [id number] Active Hailey Trevino [facility], [place] - [facility] 2 15:14:57 Screenin g for malignan t neoplasm of rectum Completed 201011/20/2011 Screenin g for malignan t neoplasm s of the rectum;R ecorded Elsewher e: No [facility] EHR Analytics Analyst saloni: N Practi ce ID: 0001 Destin lable Time: 10:00:00 AM Hailey Trevino [facility] 2 14:17:27 Adult health examinat ion Completed 201011/20/2011 Routine Medical Exam;Rec orded Elsewher e: No [facility] EHR Analytics Analyst saloni: N Practi ce ID: 0001 Destin lable Time: 10:00:00 AM Hailey Trevion [facility] 2 14:17:27 Speciali zed medical examinat ion Completed 201011/20/2011 Gynecolo gical Examinat ion;Steve rded Elsewher e: No [facility]: EHR Analytics Analyst saloni: N Practi ce ID: 0001 Destin lable Time: 10:00:00 AM Hailey Trevino [facility] 2 14:17:27 Screenin g for malignan t neoplasm of cervix Completed 201011/20/2011 Screenin g for malignan t neoplasm s of the cervix;R ecorded Elsewher e: No [facility]: EHR Analytics Analyst saloni: N Practi ce ID: 0001 Destin lable Time: 10:00:00 AM Hailey Trevino [facility] 2 14:17:27 Female genital organ symptoms [id number] Completed 201011/20/2011 Unspecif ied symptom associat ed with female genital organs;R ecorded Elsewher e: No [facility]: EHR Analytics Analyst saloni: N Practi ce ID: 0001 Destin lable Time: 09:30:00 AM Not Available [facility] 18:01:02 Vaginiti s and vulvovag initis Completed 201011/20/2011 Vaginiti s;Record ed Elsewher e: No [facility]: EHR Analytics Analyst saloni: N Practi ce ID: 0001 Destin lable Time: 09:30:00 AM Hailey Trevino [facility] 2 14:17:27 Vaginiti s and vulvovag initis Completed 201105/18/2021 Vaginiti s and vulvovag initis, unspecif ied;Prac kashif ID: 0001 Hailey Trevino [facility] 2 14:17:27 Microsco pic hematuri a [id number] Completed 201105/18/2021 MICROSCO PIC HEMATURI A;Record ed Elsewher e: No [facility]: EHR Analytics Analyst saloni: N Practi ce ID: 0001 Destin lable Time: 09:30:00 AM Hailey Trevino [facility] 2 14:17:27 Speciali zed medical examinat ion Completed 201205/18/2021 Gynecolo gical Examinat ion;Steve rded Elsewher e: No [facility]: EHR Analytics Analyst saloni: N Practi ce ID: 0001 Destin lable Time: 10:00:00 AM Hailey Trevino [facility] 2 14:17:27 Disorder of bone and articula r cartilag e [id number] Completed 201205/18/2021 Disorder of bone and cartilag e, unspecif ied;Steve rded Elsewher e: No [facility]: EHR Analytics Analyst saloni: N Practi ce ID: 0001 Destin lable Time: 10:00:00 AM Hailey Trevino [facility] 2 14:17:27 Screenin g for malignan t neoplasm of rectum Completed 201305/18/2021 Screenin g for malignan t neoplasm s of the rectum;P ractice ID: 0001 Hailey bain [facility] 2 14:17:27 Adult health examinat ion Completed 201305/18/2021 ROUTINE MEDICAL EXAM;Rec orded Elsewher e: No [facility]: EHR Analytics Analyst saloni: N Practi ce ID: 0001 Destin lable Time: 09:00:00 AM Hailey Trevino taya [facility] 2 14:17:[address] Concept Completed 201405/18/2021 Encntr for general adult medical exam w/o abnormal findings ;Practic e ID: 0001 Haileychito Trevino taya [facility] 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 2 14:17:27 Screenin g for malignan t neoplasm of cervix Completed 201805/18/2021 Encounte r for screenin g for malignan t neoplasm of cervix;P ractice ID: 0001 Haileychito Trevino taya [facility] 2 14:17:27 Problem Notes None recorded. Procedures Surgical History Date Name Laterality Status Provider Name and Address Organization Details Recorded Time Date of Last Pap Smear completed Hailey Trevino [facility] 05/18/2021 15:15:08 Colonoscopy completed Liudmila Vaca [facility] 04/13/2020 14:06:21 cone biopsy completed Liudmila Vaca [facility] 04/13/2020 14:06:28 hammer toe operation completed Liudmila [facility] 04/13/2020 14:07:06 Imaging Results None recorded. Procedure Notes None recorded. Medical Equipment None Reported. Allergies No known drug allergies Medications Name Sig Start Date Stop Date Status Note LastModified by Organization Details LastModified Time amoxicill in 500 mg capsule TAKE 4 CAPSULES BY MOUTH 1 HOUR BEFORE DENTAL APPOINTM ENT active Not Available Not Available No t Available buspirone 5 mg tablet take 1 tablet by oral route 3 times every day 11/19 completed Prescrib ed Elsewher e: Yes Loca tion: [facility] odify By: liam kwon DateTime : 11/25/19 13 10:00:00 AM Not Available Not Available Not Available potassium chloride ER 10 mEq capsule,e xtended release active Not Available Not Available Not Available prednison e 10 mg tablet 09/10 completed Not Available Not Available Not Available doxycycli ne hyclate 100 mg capsule TAKE 1 CAPSULE BY MOUTH TWICE DAILY 09/10 completed Not Available Not Available Not Available carvedilo l 12.5 mg tablet active Not Available Not Available Not Available Evista 60 mg tablet take 1 tablet (60MG) by oral route every day 11/24 completed Prescrib ed Elsewher e: No Locat ion: [facility] odify By: liam kwon DateTime : 02/15/20 11 08:14:36 AM Not Available Not Available Not Available nadolol 80 mg tablet 09/10 completed Not Available Not Available Not Available hydrocodo ne 5 mg-acetam inophen 325 mg tablet TAKE 1 TABLET BY MOUTH EVERY 6 HOURS NEEDED FOR PAIN 05/18 completed Not Available Not Available Not Available Monistat 7 2 % vaginal cream insert 1 applicat orful by vaginal route every day at bedtime 01/07 completed Prescrib ed Elsewher e: No Locat ion: [facility] odify By: radha han DateTime : 01/13/20 16 10:29:46 AM Not Available Not Available Not Available alendrona te 70 mg tablet active Not Available Not Available Not Available sertralin e 100 mg tablet active Not Available Not Available Not Available prednison e 5 mg tablet take 1 tablet (5MG) by oral route every day 09/10 completed Not Available Not Available Not Available folic acid 20 mg capsule 05/06 completed Prescrib ed Elsewher e: Yes Loca tion: [facility] odify By: oriana Schmidt er DateTime : 11/05/19 11 02:51:53 PM Not Available Not Available Not Available leflunomi de 10 mg tablet take 1 tablet by oral route every day 09/10 completed Prescrib ed Elsewher e: Yes Loca tion: [facility] odify By: radha Zimmer ncounter DateTime : 12/21/19 15 09:30:00 AM Not Available Not Available Not Available azathiopr ine 50 mg tablet TAKE 1 TABLET BY MOUTH DAILY active Not Available Not Available No t Available sulfameth oxazole 800 mg-trimet hoprim 160 mg tablet TAKE 1 TABLET BY MOUTH TWICE DAILY 05/18 completed Not Available Not Available Not Available leflunomi de 20 mg tablet TAKE 1 TABLET BY MOUTH EVERY DAY 09/10 completed Not Available Not Available Not Available tramadol 50 mg tablet TAKE 1 TABLET BY MOUTH FOUR TIMES DAILY NEEDED 09/10 completed Not Available Not Available Not Available Macrobid 100 mg capsule take 1 capsule by oral route every 12 hours with food 11/08 completed Prescrib ed Elsewher e: Yes Loca tion: [facility] odify By: clyde Zimmer ncounter DateTime : 11/05/19 11 02:51:53 PM Not Available Not Available Not Available biotin 300 mcg tablet 04/14 completed Prescrib ed Elsewher e: Yes Loca tion: [facility] odify By: radha Zimmer ncounter DateTime : 01/08/20 17 09:30:00 AM Not Available Not Available Not Available nadolol 20 mg tablet take 1 tablet by oral route every day 01/14 completed Prescrib ed Elsewher e: Yes [facility] By: grant Ladd nter DateTime : 11/05/19 11 02:51:53 PM Not Available Not Available Not Available flaxseed oil 1,000 mg capsule 05/06 completed Prescrib ed Elsewher e: Yes Loca tion: [facility] odify By: dylandical Encount er DateTime : 11/09/19 11 10:00:00 AM Not Available Not Available Not Available Metrogel Vaginal 0.75 % (37.5 mg/5 gram) insert 1 applicat orful by vaginal route every day at bedtime 01/01 completed Prescrib ed Elsewher e: No Locat ion: [facility] odify By: radha Zimmer ncounter DateTime : 12/02/19 14 09:33:41 AM Not Available Not Available Not Available omeprazol e 10 mg capsule,d elayed release take 2 capsule by oral route every day before a meal 01/14 completed Prescrib ed Elsewher e: Yes Loca tion: [facility] odify By: jeanie Zimmer ncounter DateTime : 01/09/20 18 10:30:00 AM Not Available Not Available Not Available dicyclomi ne 20 mg tablet TAKE 1 TABLET BY MOUTH FOUR TIMES DAILY BEFORE A MEAL AND EVERY NIGHT AT BEDTIME active Not Available Not Available No t Available simvastat in 5 mg tablet take 1 tablet by oral route every day in the evening 11/08 completed Prescrib ed Elsewher e: Yes Loca tion: [facility] odify By: clyde han DateTime : 11/05/19 11 02:51:53 PM Not Available Not Available Not Available Cipro 500 mg tablet take 1 tablet (500MG) by oral route every 12 hours 11/24 completed Prescrib ed Elsewher e: No Locat ion: [facility] odify By: liam kwon DateTime : 11/26/19 12 04:21:40 PM Not Available Not Available Not Available losartan 25 mg tablet active Not Available Not Available Not Available hydrochlo rothiazid e 12.5 mg capsule take 2 capsule by oral route every day 05/06 completed Prescrib ed Elsewher e: Yes Loca tion: [facility] odify By: dylandical Encount er DateTime : 11/09/19 11 10:00:00 AM Not Available Not Available Not Available gabapenti n 300 mg capsule TAKE 1 CAPSULE BY MOUTH THREE TIMES DAILY 05/18 completed Not Available Not Available Not Available omeprazol e 20 mg capsule,d elayed release active Not Available Not Available Not Available nadolol 40 mg tablet 09/10 completed Not Available Not Available Not Available Enbrel 25 mg (1 mL) subcutane ous powder for solution inject 1 millilit er by subcutan eous route 2 times every week 72-96 hours apart 11/24 completed Prescrib ed Elsewher e: Yes Loca tion: [facility] odify By: liam kwon DateTime : 11/09/19 11 10:00:00 AM Not Available Not Available Not Available hydroxych loroquine 200 mg tablet take 1 tablet by oral route every day 09/10 completed Not Available Not Available Not Available zolpidem 10 mg tablet active Not Available Not Available Not Available Vitamin D2 1,250 mcg (50,000 unit) capsule take 1 capsule by oral route every week 01/07 completed Prescrib ed Elsewher e: Yes Loca tion: [facility] odify By: lskandy Zimmer ncounter DateTime : 01/02/20 16 11:45:00 AM Not Available Not Available Not Available sertralin e 20 mg/mL oral concentra te take 2.5 millilit er by oral route every day and mix with 4 oz. (1/2 cup) of water, lucius dulce, lemon/li me soda, lemonade or orange juice ONLY 05/18 completed Prescrib ed Elsewher e: Yes Loca tion: [facility] odify By: liam kwon DateTime : 11/26/19 14 09:00:00 AM Not Available Not Available Not Available hydroxyzi ne HCl 10 mg tablet TAKE 1 TABLET BY MOUTH FOUR TIMES DAILY NEEDED active Not Available Not Available No t Available Ambien 5 mg tablet take 2 tablet by oral route every day at bedtime 04/14 completed Prescrib ed Elsewher e: Yes Loca tion: [facility] odify By: cmedical Encount er DateTime : 05/07/19 12 02:30:00 PM Not Available Not Available Not Available dicyclomi ne 10 mg capsule take 1 capsule by oral route 3 times every day 01/01 completed Prescrib ed Elsewher e: Yes Loca tion: [facility] odify By: radha han DateTime : 12/21/19 15 09:30:00 AM Not Available Not Available Not Available buspirone 15 mg tablet active Not Available Not Available Not Available Calcium-5 00 500 mg (as calcium carbonate 1,250 mg) tablet 04/14 completed Prescrib ed Elsewher e: Yes Loca tion: [facility] odify By: radha rondonunter DateTime : 01/08/20 17 09:30:00 AM Not Available Not Available Not Available rosuvasta tin 10 mg tablet active Not Available Not Available Not Available Crestor 20 mg tablet take 1 tablet by oral route every day 01/08 completed Prescrib ed Elsewher e: Yes Loca tion: [facility] odify By: jeanie rondonuntemy DateTime : 01/02/20 16 11:45:00 AM Not Available Not Available Not Available Crestor 5 mg tablet take 2 tablet by oral route every day 05/06 completed Prescrib ed Elsewher e: Yes Loca tion: [facility] odify By: dylandieduardo Randlet er DateTime : 11/09/19 11 10:00:00 AM Not Available Not Available Not Available bupropion HCl (bulk) 100 % powder 11/24 completed Prescrib ed Elsewher e: Yes Loca tion: [facility] odify By: liam kwon DateTime : 11/09/19 11 10:00:00 AM Not Available Not Available Not Available Flovent HFA 110 mcg/actua tion aerosol inhaler inhale 1 puff by inhalati on route 2 times every day 01/14 completed Prescrib ed Elsewher e: Yes Loca tion: [facility] odify By: jeanie han DateTime : 01/08/20 17 09:30:00 AM Not Available Not Available Not Available Lyrica 25 mg capsule take 2 capsule by oral route 3 times every day 11/24 completed Prescrib ed Elsewher e: Yes Loca tion: [facility] odify By: liam kwon DateTime : 11/05/19 11 02:51:53 PM Not Available Not Available Not Available hydroxych loroquine active Not Available Not Available No t Available losartan 09/10 completed Not Available Not Available Not Available zolpidem 09/10 completed Not Available Not Available Not Available Vitamin D3 active Not Available Not Available Not Available gabapenti n 05/18 completed Not Available Not Available Not Available Restasis active Not Available Not Avai lable Not Available rosuvasta tin active Not Available Not Available Not Available Vitamin D3 10 mcg (400 unit) capsule 05/06 completed Prescrib ed Elsewher e: Yes Loca tion: [facility] odify By: liam kwon DateTime : 11/20/19 12 09:30:00 AM Not Available Not Available Not Available methotrex ate (bulk) 100 % powder 11/24 completed Prescrib ed Elsewher e: No Locat ion: [facility] odify By: liam kwon DateTime : 06/05/19 12 09:00:00 AM Not Available Not Available Not Available Celebrex 50 mg capsule take 2 capsule by oral route 2 times every day 05/18 completed Prescrib ed Elsewher e: Yes Loca tion: [facility] odify By: grant Condeou nter DateTime : 11/05/19 11 02:51:53 PM Not Available Not Available Not Available FeroSul 325 mg (65 mg iron) tablet TAKE 1 TABLET BY MOUTH TWICE DAILY active Not Available Not Available No t Available cyclobenz aprine ER 15 mg capsule,e xtended release 24 hr take 1 capsule by oral route every day 05/06 completed Prescrib ed Elsewher e: Yes Loca tion: [facility] odify By: cmedical Encount er DateTime : 11/05/19 11 02:51:53 PM Not Available Not Available Not Available levocetir izine 2.5 mg/5 mL oral solution take 10 millilit er by oral route every day in the evening 01/07 completed Prescrib ed Elsewher e: Yes Loca tion: [facility] odify By: radha han DateTime : 01/02/20 16 11:45:00 AM Not Available Not Available Not Available ferrous sulfate 15 mg iron (75 mg)/mL oral drops 01/08 completed Prescrib ed Elsewher e: Yes Loca tion: [facility] odify By: jeanie han DateTime : 01/08/20 17 09:30:00 AM Not Available Not Available Not Available Fish Oil 360 mg-1,200 mg capsule 11/08 completed Prescrib ed Elsewher e: Yes Loca tion: [facility] odify By: clyde han DateTime : 11/05/19 11 02:51:53 PM Not Available Not Available Not Available Flexall 7 % topical gel 05/18 completed Prescrib ed Elsewher e: Yes Loca tion: [facility] odify By: jeanie han DateTime : 01/09/20 18 10:30:00 AM Not Available Not Available Not Available Vagifem 10 mcg vaginal tablet insert 1 tablet (10MCG) by vaginal route every day for 14 days then 1 tablet (10 mcg) 2 times per week for duration of use 11/24 completed Prescrib ed Elsewher e: No Locat ion: [facility] odify By: grant tz Encou ntemy DateTime : 03/19/19 13 03:46:29 PM Not Available Not Available Not Available Actemra 200 mg/10 mL (20 mg/mL) intraveno us solution infuse by intraven ous route every 4 weeks over not to exceed 800 mg per infusion 01/07 completed Prescrib ed Elsewher e: Yes Loca tion: [facility]oleen [facility] odify By: radha han DateTime : 01/02/20 16 11:45:00 AM Not Available Not Available Not Available Zolpimist 5 mg/spray (0.1 mL) oral spray spray 2 spray by translin gual route every day into the mouth, over the tongue at bedtime 05/06 completed Prescrib ed Elsewher e: Yes Loca tion: [facility]oleen [facility] odify By: cmedical Encount er DateTime : 11/05/19 11 02:51:53 PM Not Available Not Available Not Available Orencia 125 mg/mL subcutane ous syringe inject 1 millilit er by subcutan eous route every week 01/14 completed Prescrib ed Elsewher e: Yes Loca tion: [facility]ole[facility] odify By: jeanie han DateTime : 01/08/20 17 09:30:00 AM Not Available Not Available Not Available Irina 2 mg tablet,de layed release take 1 tablet (2MG) by oral route every day with food, swallowi ng whole. Do not break, crush, chew and/or divide. 12/20 completed Prescrib ed Elsewher e: Yes Loca tion: [facility]oleen [facility] odify By: radha han DateTime : 11/25/19 13 10:00:00 AM Not Available Not Available Not Available Xeljanz 5 mg tablet take 1 tablet by oral route 2 times every day 01/14 completed Prescrib ed Elsewher e: Yes Loca tion: [facility]ole[facility] odify By: jeanie han DateTime : 11/26/19 14 09:00:00 AM Not Available Not Available Not Available Osphena 60 mg tablet TAKE 1 TABLET BY MOUTH DAILY WITH FOOD 2024 active Not Available Not Available Not Avai lable Gyne-Lotr imin 7 1 % vaginal cream apply 1 Tube by Topical route every apply prn at least once daily 11/19 completed Prescrib ed Elsewher e: No Locat ion: Joleen z[facility] odify By: liam kwon DateTime : 01/26/20 11 09:30:00 AM Not Available Not Available Not Available Flonase Allergy Relief active Not Available Not Available Not Available Olumiant 2 mg tablet take 1 tablet by oral route every day 01/14 completed Prescrib ed Elsewher e: Yes Loca tion: Joleen z[facility] odify By: jeanie han DateTime : 01/09/20 18 10:30:00 AM Not Available Not Available Not Available Vitals Date Recorded Body height Body mass index (BMI) Body weight Systolic And Diastolic Provider Name and Address Organization Details Last Updated DateTime 04/14/2020 149.86 cm 27.7 kg/m2 89374.15 g 119/76 mm[Hg] Liudmila Vaca [facility] 04/14/2020 11:25:19 Date Recorded Body height Body mass index (BMI) Body weight Systolic And Diastolic Provider Name and Address Organization Details Last Updated DateTime 05/18/2021 147.32 cm 26.7 kg/m2 09144.39 g 130/78 mm[Hg] Hailey Trevino [facility] 05/18/2021 15:13:55 Date Recorded Body height Body mass index (BMI) Body weight Systolic And Diastolic Provider Name and Address Organization Details Last Updated DateTime 09/11/2023 147.32 cm 23.8 kg/m2 19434.81 g 110/68 mm[Hg] Leah Julian [facility] 09/11/2023 12:18:16 Social History Question Answer Notes LastModified by Organizat ion Details LastModified Time Tobacco Smoking Status Never Smoker [facility] 05/18/2021 15:16:47 Are You Blind Or Do You Have Difficulty Seeing? No Information not available 05/18/2021 What Is Your Level Of Caffeine Consumption? Occasional Information not available 05/18/2021 Are You Deaf Or Do You Have Serious Difficulty Hearing? No Information not available 05/18/2021 What Type Of Diet Are You Following? REGULAR Information not available 05/18/2021 Do You Use Your Seat Belt Or Car Seat Routinely? Yes Information not available 05/18/2021 Do You Have Smoke And Carbon Monoxide Detectors In Your Home? Yes Information not available 05/18/2021 Do You Use Sunscreen Routinely? Yes Information not available 05/18/2021 Do You Have Difficulty Walking Or Climbing Stairs? No Information not available 05/18/2021 Sex: Unknown Functional Status Question Answer Note LastModified by Organizat ion Details LastModified Time Do you use any illicit or recreational drugs? No Information not available 05/18/2021 What is your level of alcohol consumption? Occasional Information not available 05/18/2021 Are you able to walk independently without assistance or assistive devices? YESASSIST Information not available 05/18/2021 Are you able to care for yourself independently? Yes Information not available 05/18/2021 Do you have difficulty dressing, bathing, grooming, or toileting? No Information not available 05/18/2021 What is your exercise level? Occasional Information not available 05/18/2021 Mental Status Question Answer Note LastModified by Organization D etails LastModified Time Do you feel stressed (tense, restless, nervous, or anxious, or unable to sleep at night)? [id number] Information not available 05/18/2021 Family History Relationship Description Onset Age of this Age Resolved Age Notes LastModified by Organization Details LastModified Time Mother Coronary arterioscler osis [email or web address] Not available 2020 14:04:52 Mother Diabetes mellitus [email or web address] Not available 2020 14:05:06 Mother Carcinoma in situ of breast [email or web address] Not available 2020 14:05:31 Maternal Grandmother Diabetes mellitus [email or web address] Not available 2020 14:05:06 Maternal Aunt Carcinoma in situ of colon [email or web address] Not available 2020 14:05:18 Father Hypertensive disorder [email or web address] Not available 2020 14:05:44 Father Psychotic disorder [email or web address] Not available 2020 14:05:50 Brother Carcinoma of prostate [email or web address] Not available 2020 14:06:00 Medical History Condition Response Acid Reflux (GERD) Y History of abnormal pap Y Fibromyalgia Y Gynecological History Statement/Question Response Abnormal Pap Y Sexually Active? Y STIs/STDs N Age of first menstrual cycle 9 Date of Last Pap Smear 04/14/2020 Sexual Problems? N Current Control Method Menopause Desired Control Method Unknown LMP Unknown Obstetrics History GPAL:G 1 P 1 0 0 1 Type Value Full Term 1 Living 1 Total 1 Past Encounters Encounter ID Performer Location Encounter Start Date Encounter Closed Date Diagnosis/Indication Diagnosis SNOMED-CT Code Diagnosis ICD10 Code Diagnosis IMO Codes Diagnosis Note [id number] Xena Bartholomew , [facility] [address] [address] 04/14/2020 10:57:15 04/14/2020 14:19:31 Gynecologic examination 40082322 Z01.419 Take Calcium with Vitamin D 12-1500mg daily. Do monthly self breast exams. It is advised to get annual flu shot in the fall and she could obtain at [facility] or [facility]. If you haven't received the Tdap vaccine in the last 10 years you should obtain one as well. Have mammogram yearly, bone density every 2-3 years and colonoscop y every 5-10 years depending on findings and history. Engage in daily exercise of low impact aerobic exercise 45-60 minutes 4-5 times weekly. Avoid tobacco and illicit drugs as well as using moderation with alcohol intake less than 1-2 8 oz beverages daily. This lifestyle behavior pattern will lead to less health conditions and longer life span. If BMI greater than 25 weight watchers or dietary consult advised. Questions have been answered. Patient appears to understand instructio ns, but if you have any further questions call or respond to this email Opts to pursue pap/hpv this year. Mammo ordered CBE done Colonoscop y-counsele d on & will schedule (Fam Hx colon cancer in 2 first line relatives) Dexa-UTD by PCP Additional precaution kaiser measures were taken to minimize potential exposure to the Covid-19 virus during this patient s visit, including available hand in store demonstrator upon arrive, temperatur e check and being asked a series of screening questions. All staff wore face coverings during this encounter, as well as provided additional cleaning and sanitizing of all surfaces, including countertop s, pens, chairs, door handles, light switches, etc, prior to and following the patient s visit. Atrophic vulva [id number] N90.5 Will have staff assist patient in locating speciality pharmacy that offers coverage at reasonable cost of this medication as she is doing very well on it. Consider US next year to ensure lining is staying thin but has had no AUB since starting it and atrophic vaginitis is managed well. [id number] XenaINO Torres-[facility] [address] [address] 05/18/2021 14:35:22 05/18/2021 15:41:58 Gynecologic examination [id number] Z01.419 Take Calcium with Vitamin D 12-1500mg daily. Do monthly self breast exams. It is advised to get annual flu shot in the fall and she could obtain at [facility] or [facility] clinic. If you haven't received the Tdap vaccine in the last 10 years you should obtain one as well. Have mammogram yearly, bone density every 2-3 years and colonoscop y every 5-10 years depending on findings and history. Engage in daily exercise of low impact aerobic exercise 45-60 minutes 4-5 times weekly. Avoid tobacco and illicit drugs as well as using moderation with alcohol intake less than 1-2 8 oz beverages daily. This lifestyle behavior pattern will lead to less health conditions and longer life span. If BMI greater than 25 weight watchers or dietary consult advised. Questions have been answered. Patient appears to understand instructio ns, but if you have any further questions call or respond to this email Pap/hpv opts to continue pap's STD Screen declined Genetic Screen discussed declined Colon Screen UTD PCP Dexa Screen UTD 2020 PCP Routine Labs UTD PCPMammo ordered Dyspareunia [id number] N94 .10 Happy on Osphena.No AUB/PMBVag inal exam looks great!No pain with pap smear. [id number] ESPERANZA GROSSMAN MD [place] [address] [address] 09/11/2023 12:02:59 09/11/2023 14:03:00 Dyspareunia 68571550 N94.10 - vaginal dryness and dyspareuni a improved since starting Osphena- no adverse effects- ok to continue Gynecologi c examination 44866142 Z01.419 Z11.51 Well woman care- Cervical cancer screening: Pap smear obtained today, will follow up on the results with the patient as they become available- Breast cancer screening: mammogram completed late 2022, patient to call for new order when needed- HPV immunizati on: does not qualify- STD testing: declined- hereditary cancer screening: does not qualify for testing Health Concerns Section Related Observation LastModified by Organization Detai ls LastModified Time None Recorded Concern Status LastModified by Organization Details LastModified Time None Recorded Advance Directives Directive None Recorded Payers Insurance Date Sequence Insurance Name Policy Number Policy Asif Covered Member ID Asif Member ID Guarantor Name 09/08/2023 1 [place] Prabha Andersen Demontmollin [id number] Prabha Andersen Demontmollin 05/24/2021 2 [employer] (MEDICARE SUPPLEMENT) Prabha Andersen Demontmollin [id number] Prabha Andersen Demontmollin Notes Date Note Type Note Provider Name and Address Organization Details Recorded Time 1 text/html Annual GYNReported by PatientHistoryFor history, patient reportsno gynecologic complaints.Genitourinary symptomsFor menstrual cycle, patient reportsnormal menses. For urinary symptoms, patient reportsno hematuriaandno incontinence. For vulva, patient reportsno genital lesion. For vagina, patient reportsnormal vaginal discharge.Breast symptomsFor breast, patient reportsno breast pain,no breast lump, andno nipple discharge.Endocrine symptomsFor sexual complaints, patient reportsno sexual complaints,no pain during intercourse, andnormal libido. For menopausal symptoms, patient reportsno menopausal symptomsandnormal vaginal lubrication.Psychological symptomsFor psychological symptoms, patient reportsno depression,no anxiety, andno pmdd.Preventative measuresFor preventive measures, patient reportsencourage self breast examination,encourage regular exercise,encourage no tobacco use,encourage regular mammograms starting age 40, andneeds to schedule colonoscopy (schedule earlier since mother recently colon cancer). Xena Bartholomew, MANISHA- [address], [place], [address], [facility] 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 For vaginal bleeding, patient reportshistory of menopause having occurredandno history of post menopausal bleeding. For urinary symptoms, patient reportsno hematuria,no incontinence,no nocturia, andno urinary frequency. For vulva, patient reportsno genital lesionandno vulvar atrophy. For vagina, patient reportsnormal vaginal dischargeandno vaginal atrophy.Breast symptomsFor breast, patient reportsno breast lump,no nipple discharge, andno breast pain.Psychological symptomsFor sexual complaints, patient reportsno sexual complaints. For psychological symptoms, patient reportsno depressionandno anxiety.Preventative measuresFor preventive measures, patient reportsencourage regular mammograms starting age 40,encourage self breast examination,encourage regular exercise,encourage no tobacco use,needs to schedule mammogram, andhistory of recent colonoscopy. Xena Bartholomew, MANISHA- [address], [place], [address], [facility] 05/18/2021 15:31:24 4 text/html Annual GYNReported by Patient Presents today for her annual well-woman exam. She denies concerns today. Denies abnormal vaginal discharge. She is sexually active and denies dyspareunia. She has not noticed any changes or masses in her breasts. Denies PMB. No hx of abnormal mammograms; remote hx of abnormal pap smear s/p cone biopsy 35 years ago Using Osphena with improvement in vaginal dryness and irritation. ESPERANZA GROSSMAN MD [address], [place], [address], [facility] 09/11/2023 14:02:02 OBGyn Episode Ob Episode Information Episode Created Date Number of Fetuses Patient Bloodtype Patient rh Status Prepregnancy Weight lbs Domestic Partner Domestic Partner Phone Father Name Sheet Taker Status 04/13/19 21 1 CLOSED Fetus Data First Name Last Name Admitted to NICU Weight (g) Sex Living Outcome Pediatric Complications Fetus ID Race Codes Race Delivery Type M Full Term [id number] Vaginal Delivery Marshal Calculation Initial Marshal Date Initial Exam Date Initial Exam Provider Initial Ultrasound Date Last Menstrual Period Date Ultra Sound Weeks Gestation 0 Eighteen To Twenty Week Marshal Update Ultra Sound Date Fundal Height At Umbil Quickening Date Ultra Sound Latest Weeks Gestation Final Marshal Confirmed By Final Marshal Confirmed Date Final Marshal Date Ultra Sound Latest Days Gestation 0 0 Menstrual History Last Menstrual Date Menses Monthly On Bcp Conception Prior Menses Frequency Hcg Plus Date Menarche Onset Age Delivery Information Delivery Date Delivery Type Labor Anesthesia Weeks Gestation Incision Type Labor Labor Length Hrs Delivered By Post Complications Tubal Sterilization Discharge Date Comments 1 Discharge Information Feeding Method Contraceptive Method Maternal HG B and HCT Levels
--- OUTSIDE RECORDS SUMMARY | 2025-01-01 11:08 | XMS_ITS | Encounter Summary ---
Author Organization [facility] Address [facility] [place] [address] Care Team Providers Care Associate [employer] Name Role Phone Yogi Ortiz MD Primary Care Provider [phone] Celsete Giles MD Unavailable [phone] Reason for Visit * Reason Onset Date Comments MEDICATION REFILL 01/26/2020 Encounter Details Date Type Department Care Team (Late st Contact Info) Description 01/26/2020 Refill [facility] - Orthopedics [address] [place] [phone] Dewayne Bajwa MD [address] [place] [address] [place] [address] MEDICATION REFILL Social History Tobacco Use Types Packs/Day Years Used Date Smoking Tobacco: Never Smokeless Tobacco: Never Alcohol Use Standard Drinks/Week Comments No 0 (1 standard drink = 0.6 oz pur e alcohol) Comments Unknown Sex and Gender Information Value Date Recorded Sex Assigned at Not on file Legal Sex Female 4:21 AM MANAGER 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 No / Unsure 01/19/2020 2:23 PM MANAGER PROCUREMENT documented as of this encounter Functional Status [...] of Assessment Author No 05/25/2018 12:13 PM NAYET Mady Allison RN * Does person have difficulty dressing/bathing? [...] on filedocumented in this encounter Care Teams Associate [employer] Relationship Specialty [place] [id number] [phone] PCP - General Internal Medicine 08/08/15 [place] [id number] [address] Orthopedic Surgery 05/31/20 documented as of this encounter
--- OUTSIDE RECORDS SUMMARY | 2025-01-01 11:08 | XMS_ITS | Clinical Summary ---
Author Organization [facility] [employer] Address [address] [place] [address] Care Team Providers Care Developmental Specialist Name Role Phone Yogi Ortiz MD Primary Care Provider [phone] Celeste Giles MD Unavailable [phone] Source Comments [facility] [employer],non-owned Affiliates and Associated Physician Practices is amultiple site organization consisting of ambulatory clinics and hospital sitesin [place], [place], [place] and [place]. This disclosure is being madepursuant to the Care Everywhere program and may not contain all information available regarding this patient. Last updated 17.[facility] [employer] Allergies No known active allergies Medications * Be aware that medications may not be up to date on this document. Alwaysverify current medications with the patient. busPIRone (BUSPAR) 15 MG tablet Take 1 (one) tablet by mouth 2 times daily 7 Active cyclobenzaprine (FLEXERIL) 10 MG tablet Take 1 (one) tablet by mouth at bedtime 7 Active fluticasone propionate (FLONASE) 50 MCG/ACT nasal spray [place] 2 (two) sprays into each nostril 2 times daily 7 Active hydroxychloroqui ne (PLAQUENIL) 200 MG tablet TAKE 1 TABLET EVERY 12 HOURS 8 Active nadolol (CORGARD) 40 MG tablet Take 2 (two) tablets by mouth 2 times daily 7 Active omeprazole (PRILOSEC) 20 MG capsule Take 1 (one) capsule by mouth 2 times daily, before breakfast and supper 7 Active ospemifene (OSPHENA) 60 MG tablet Take 1 (one) tablet by mouth daily with breakfast 4 Active rosuvastatin (CRESTOR) 10 MG tablet Take 0.5 (one-half) tablet by mouth at bedtime 7 Active sertraline (ZOLOFT) 100 MG tablet Take 2 (two) tablets by mouth at bedtime 7 Active diclofenac sodium (PENNSAID) 2 % topical solution Apply 2 (two) Pump to affected area 2 times daily as needed Spread evenly on all sides of affected knee. Active Biotin 5000 MCG Take 1 (one) capsule by mouth once daily Active zolpidem (AMBIEN) 10 MG tablet Take 1 (one) tablet by mouth at bedtime 9 Active Polyethyl Glycol-Propyl Glycol (SYSTANE ULTRA OP) 1 drop by Ophthalmic route as needed Active docusate sodium (COLACE) 100 MG capsule Take 1 capsule by mouth 2 times daily 60 capsule 2 0 Active predniSONE (DELTASONE) 5 MG tablet 2 Active losartan (COZAAR) 25 MG tablet Take 0.5 (one-half) tablet by mouth once daily 1 Active calcium carbonate (OS-ISAIAS 500) 1250 (500 Ca) MG tablet 1 Active dicyclomine (BENTYL) 20 MG tablet Take 1 (one) tablet by mouth 4 times daily 1 Active ferrous sulfate 325 (65 FE) MG tablet FeroSul 325 mg (65 mg iron) tablet TAKE 1 TABLET BY MOUTH TWICE DAILY 1 Active cetirizine (ZyrTEC) 10 MG chew tablet Take 1 (one) tablet by mouth once daily Active oxyCODONE, immediate release, (Roxicodone) 5 MG tabletIndication s:Status post reverse total replacement of right shoulder Take 1 (one) tablet to 2 (two) tablets by mouth every 6 hours as needed for Pain 56 tablet 3 Active leflunomide (Arava) 10 MG tablet Take 1 (one) tablet by mouth once daily Active traMADol (Ultram) 50 MG tablet Take 1 (one) tablet by mouth 4 times daily as needed Active amoxicillin (Amoxil) 500 MG capsuleIndicatio ns:Status post reverse arthroplasty of right shoulder Take 4 (four) capsules by mouth 1 Hour prior to Dental Appointment 4 capsule 11 3 Active amoxicillin (Amoxil) 500 MG capsule Take 4 (four) capsules by mouth 1 Hour prior to Dental Appointment 4 capsule 11 4 Active Active Problems Problem Noted Date Diagnosed Date Age-related osteoporosis wit hout current pathological fracture 08/23/2020 Arthralgia of right lower leg 08/08/2018 Neuropathy 08/08/2018 Weakness of both legs 08/08/2018 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 Discussed seeing pain management but patient defers at this time. Fibromyalgia 01/09/2017 Essential hypertension 08/29/2016 Overview (06/25/2017): Last Assessment & Plan: Elevated today. Usually is normal at her PMD. Advised to take BP at home and if this is continuously elevated she needs to f/u with PMD. Rheumatoid arthritis of [facility] sites with negative rheumatoid factor 05/01/2010 Overview (06/25/2017): Overview: RHEUMATOID ARTHRITIS Last Assessment & Plan: Patient disease activity is low-moderate. Most recent u/s with mild synoviial thickening/effusion with power doppler (02/2017). Patient is to continue HCQ, ARAVA and orencia. Will check routine labs today. Spinal stenosis of lumbar re gion with neurogenic claudication Family History Medical History Relation Name Comments CVA Brother 1 youngest Cancer - Prostate Brother 1 youngest Other Brother 1 youngest Arthritis Cancer - Prostate Brother 2 CVA Father Cataract Father Hypertension Father Other Father Arthritis, Psyc hiatric Disease CVA Mother Cancer - Other Mother Cataract Mother Hypertension Mother Other Mother Arthritis, Diab etes, Heart Attack/Failure Other Sister Arthritis Relation Name Status Comments Brother 1 youngest Alive Brother 2 Alive Father Mother Alive Sister Alive Social History Tobacco Use Types Packs/Day Years Used Date Smoking Tobacco: Never Smokeless Tobacco: Never Tobacco Cessation:Counseling Given: Not Answered Alcohol Use Standard Drinks/Week Comments No 0 (1 standard drink = 0.6 oz pur e alcohol) Comments Unknown Sex and Gender Information Value Date Recorded Sex Assigned at Not on file 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 Gender Identity Not on file Sexual Orientation Not on file Last Filed Vital Signs Vital Sign Reading Time Taken Comments Blood Pressure 105/73 08/12/2022 11:00 AM CDT Therapy vitals machine Pulse 69 08/12/2022 11:00 AM CDT Temperature 36.9 C (98.4 F) 08/12/2022 7:23 AM CDT Respiratory Rate 16 08/12/2022 6:18 AM CDT Oxygen Saturation 100% 08/12/2022 11: 00 AM CDT Inhaled Oxygen Concentration 100% 08/10/2022 9:08 AM CDT Weight 62.1 kg (137 lb) 11/05/2022 10:3 0 AM CDT Height 149.9 cm (4' 11) 11/05/2022 10: 30 AM CDT Body Mass Index 27.67 11/05/2022 10:30 AM CDT Plan of Treatment Health Maintenance Due Date Last Done Comments COLOGUARD (AGES 45-75) - COLON CA SCREENING 1955 CT COLONOGRAPHY - COLON CA SCREENING 1955 FIT - COLON CA SCREENING 1955 FLEX SIG - COLON CA SCREENING 1955 MAMMOGRAM 1955 MEDICARE AWV 12 MONTHS 1953 HEPATITIS C SCREENING 04/24/1971 DTAP/TDAP/TD VACCINES (1 - Tdap) 1972 PNEUMOCOCCAL VACCINE 50+ (1 of 1 - PCV) 04/29/2003 ZOSTER VACCINE (1 of 2) 04/29/2003 DEPRESSION SCREENING 02/26/2024 COVID-19 VACCINE (1 - season) 2024 INFLUENZA VACCINE (#1) 2024 4, 11/29/2010, 12/14/2009, Additional history exists Respiratory Syncytial Virus (RSV) Vaccine Pt: or over 60 yrs (1 - 1-dose 75+ series) 2028 COLON MONITORING 07/26/2030 07/26/2020 COLONOSCOPY - COLON CA SCREENING 07/26/2030 07/26/2020 Colorectal Cancer Screening 07/26/2030 BONE DENSITY TESTING Completed 07/09/2022, 05/24/2020, 03/16/2015 HEPATITIS B VACCINE Aged Out No longe r eligible based on patient's age to complete this topic HIB VACCINE Aged Out No longer eligi ble based on patient's age to complete this topic HPV VACCINE Aged Out No longer eligi ble based on patient's age to complete this topic MENINGOCOCCAL (Group B) VACCINE SHARED DECISION-MAKING Aged Out No longer eligible based on patient's age to complete this topic MENINGOCOCCAL GROUPS A/C/Y/W VACCINE Aged Out No longer eligible based on patient's age to complete this topic Medical Devices Implanted Type Area Integration Software Engineer Device Identifier Shelf Expiration Date Model / Serial / Lot Tornier Cannulated Cocr Glenosphere Implanted:Qty: 1 on 08/10/2022 by Celeste Giles MD at [facility] Right: Shoulder [employer] 12/20/2026 [id number] / [id number] / Bsplt Glnd 25mm 15d Shldr Full Wdg Aug - [id number] Implanted:Qty: 1 on 08/10/2022 by Celeste Giles MD at [facility] Right: Shoulder [employer] 07/06/2027 [id number] / [id number] / Cap Lck Aqls Flx Rv Shldr - [id number] Implanted:Qty: 1 on 08/10/2022 by Celeste Giles MD at [facility] Right: Shoulder Silecs 06/21/2027 [id number] / [id number] / Screw Bsplt 0mm Aqls Flx Rv Shldr - [id number] Implanted:Qty: 1 on 08/10/2022 by Celeste Giles MD at [facility] Right: Shoulder Silecs 06/21/2027 [id number] / [id number] / Tornier Hrs Partially Coated Distal Stem Implanted:Qty: 1 on 08/10/2022 by Celeste Giles MD at [facility] Right: Shoulder [employer] 06/19/2027 [id number] / [id number] / Aequalis Flex Revive Ptc Proximal Body Implanted:Qty: 1 on 08/10/2022 by Celeste Giles MD at [facility] Right: Shoulder [employer] 03/20/2027 [id number] / [id number] / Tornier Flex Shoulder Reversed Insert +6mm Implanted:Qty: 1 on 08/10/2022 by Celeste Giles MD at [facility] Right: Shoulder [employer] 12/25/2026 [id number] / [id number] / Tray Hum +0mm 3.5mm Hi Ofst Shldr Rvrs - [id number] Implanted:Qty: 1 on 08/10/2022 by Celeste Giles MD at [facility] Right: Shoulder [employer] 06/28/2027 [id number] / [id number] / Screw Bsplt 35mm 6.5mm Aqls Prfrm Glnd Implanted:Qty: 1 on 08/10/2022 by Celeste Giles MD at [facility] Right: Shoulder [employer] [id number] / / Screw Bsplt 22mm 5mm Aqls Prfrm Pvrs Implanted:Qty: 1 on 08/10/2022 by Celeste Giles MD at [facility] Right: Shoulder [employer] [id number] / / Screw Bsplt 26mm 5mm Aqls Prfrm Glnd Implanted:Qty: 3 on 08/10/2022 by Celeste Giles MD at [facility] Right: Shoulder [employer] [id number] / / Graft Bone Alfs Dbm 10ml Gel Implanted:Qty: 1 on 08/10/2022 by Celeste Giles MD at [facility] Right: Shoulder [employer] 06/26/2024 [id number] / / [id number] Graft Bone Canc 30ml Frzdr Crsh 1-4mm Implanted:Qty: 1 on 08/10/2022 by Celeste Giles MD at [facility] Right: Shoulder [employer] 11/22/2022 [id number] / / [id number] Description:ID: [id number] Explanted Type Area Integration Software Engineer Device Identifier Shelf Expiration Date Model / Serial / Lot Glenosphere Implanted:Qty: 1 on 05/23/2018 by Celeste Giles MD at [facility] Explanted:Qty: 1 on 08/10/2022 by Celeste Giles MD at [facility] Right: Shoulder 03/27/2023 1376.09.02 41 Self Tapping Bone Screw Implanted:Qty: 1 on 05/23/2018 by Celeste Giles MD at [facility] Explanted:Qty: 1 on 08/10/2022 by Celeste Giles MD at [facility] Right: Shoulder 08/24/2022 8420.15.02 030 Finned Stem Implanted:Qty: 1 on 05/23/2018 by Celeste Giles MD at [facility] Explanted:Qty: 1 on 08/10/2022 by Celeste Giles MD at [facility] Right: Shoulder 07/25/2022 1304.15.18 [id number] Humeral Body Implanted:Qty: 1 on 05/23/2018 by Celeste Giles MD at [facility] Explanted:Qty: 1 on 08/10/2022 by Celeste Giles MD at [facility] Right: Shoulder 08/24/2022 1352.15.00 137 Glenoid Implanted:Qty: 1 on 05/23/2018 by Celeste Giles MD at [facility] Explanted:Qty: 1 on 08/10/2022 by Celeste Giles MD at [facility] Right: Shoulder 11/24/2022 1375.21.00 [id number] Reverse Liner Implanted:Qty: 1 on 05/23/2018 by Celeste Giles MD at [facility] Explanted:Qty: 1 on 08/10/2022 by Celeste Giles MD at [facility] Right: Shoulder 11/24/2022 1360.50.81 [id number] Self Tapping Bone Screw Implanted:Qty: 1 on 05/23/2018 by Celeste Giles MD at [facility] Explanted:Qty: 1 on 08/10/2022 by Celeste Giles MD at [facility] Right: Shoulder 04/24/2022 8420.15.00 [id number] Procedures Procedure Name Priority Date/Time Associated Diagnosis Comments DEXA BONE DENSITY AXIAL SKELETON Routine 05/24/2020 9:04 AM CDT Osteopenia of spine from Last 3 Months or Most Recently Relevant to Health Maintenance Results * BONE DENSITY AXIAL SKELETON(1OR MORE SITES)[id number] (05/24/2020 9:04 AM CDT) Anatomical Region Laterality Modality Other 05/24/2020 4:38 PM CDT Narrative 05/24/2020 4:41 PM CDT Examination: Dual energy x-ray absorptiometry of the lumbar spine and hip. Clinical Indication: M85.88: Osteopenia of spine Findings: Detailed data from the exam is sent separately to the ordering physician and is also available on Shots, the Radiology Department's computerized picture archive system. Patient's height 60 in; weight 135 lb. SUMMARY: No prior study available for comparison. BONE MINERAL DENSITY (BMD) lumbar spine (L1-4): Normal; T-score -0.9 BONE MINERAL DENSITY (BMD) left hip: Osteoporosis; T-score -2.6 FRAX 10 year fracture risk was not reported because all T score of spine total, hip total or femoral neck at or below -2.5. Definitions: T-score = Standard Deviation Normal: A value for bone mineral density(BMD) within 1 standard deviation of the young adult reference mean. (T-score above -1) Low bone mass(osteopenia): A value for bone mineral density(BMD) more than 1 standard deviation below the young adult mean, but less than 2.5 standard deviations below the young adult mean. ( T-score between -1 and -2.5) Osteoporosis: A value for bone mineral density 2.5 standard deviations or more below the young adult mean. ( T-score at or below -2.5) Severe osteoporosis: Osteoporosis + the presence of one or more fragility fractures. Please note that T-score values are important in determining increased risk for fractures. The T-score represents the standard deviation above or below the mean bone mineral density for young adults. With each -1 standard deviation decrease in bone mineral density, the risk for fracture doubles exponentially. A T-score of -1 will double the risk , and -2 will be 4 times the risk. As a rule of thumb, a T-score of -1 to -2.5 indicates increasing degrees of osteopenia. This report was approved by Campbell Vernon on 05/24/2020 4:41 PM . IDr. LATHA D.O. have personally reviewed and interpreted this examination/study. This report was electronically signed by LATHA BENSON D.O. on 05/24/2020 4:41 PM . Procedure Note Latha Benson, - 05/24/2020 Examination: Dual energy x-ray absorptiometry of the lumbar spine andhip. Clinical Indication: M85.88: Osteopenia of spine Findings: Detailed data from the exam is sent separately to the ordering physician and is also available on [employer]ots, the Radiology Department's computerized picture archive system. Patient's height 60 in; weight 135 lb. SUMMARY: No prior study available for comparison. BONE MINERAL DENSITY (BMD) lumbar spine (L1-4): Normal; T-score -0.9 BONE MINERAL DENSITY (BMD) left hip: Osteoporosis; T-score -2.6 FRAX 10 year fracture risk was not reported because all T score of spine total, hip total or femoral neck at or below -2.5. Definitions: T-score = Standard Deviation Normal: A value for bone mineral density(BMD) within 1 standarddeviation of the young adult reference mean. (T-score above -1) Low bone mass(osteopenia): A value for bone mineral density(BMD) morethan 1 standard deviation below the young adult mean, but less than 2.5 standard deviations below the young adult mean. ( T-score between -1 and -2.5) Osteoporosis: A value for bone mineral density 2.5 standard deviationsor more below the young adult mean. ( T-score at or below -2.5) Severe osteoporosis: Osteoporosis + the presence of one or morefragility fractures. Please note that T-score values are important in determining increased risk for fractures. The T-score represents the standard deviation aboveor below the mean bone mineral density for young adults. With each -1 standard deviation decrease in bone mineral density, the risk forfracture doubles exponentially. A T-score of -1 will double the risk , and -2will be 4 times the risk. As a rule of thumb, a T-score of -1 to -2.5indicates increasing degrees of osteopenia. This report was approved by Campbell Vernon on 05/24/2020 4:41 PM . IDr. LATHA D.O. have personally reviewed and interpreted this examination/study. This report was electronically signed by LATHA BENSON D.O. on05/24/2020 4:41 PM . Dewayne Bajwa MD DEXA ORDERABLES Final Result from Last 3 Months or Most Recently Relevant to Health [place] [address] [place] [address] MEDICARE SUPPLEMENT [place] [address] MEDICARE Advance Directives * Full Code (Latest Code Status on File) Date Activated Date Inactivated Comments 08/10/2022 3:13 PM 08/12/2022 1:09 PM * Full Code Date Activated Date Inactivated Comments 11/13/2019 1:13 PM 11/14/2019 5:02 PM * Full Code Date Activated Date Inactivated Comments 05/23/2018 11:21 AM 05/25/2018 1:54 PM Care Teams Developmental Specialist Relationship Specialty [place] [id number] [facility] [place] [id number] PCP - General Internal Medicine 08/08/15 [place] [address] [place] [address] Orthopedic Surgery 05/31/20
== END 2025-01-01 10:24 | disposition home or self-care (01) ==
PROVIDERS: PCP Internal Medicine Geriatric Medicine; Visit Provider Nurse Practitioner Obstetrics & Gynecology
DX: Z12.31 Encounter for screening mammogram for malignant neoplasm of breast (principal)
CPT/HCPCS: 77063; 77067